=== PATIENT | female | born 1990 | race Caucasian/White ===

== ENCOUNTER → 2022-09-28 13:42 | Outpatient (CLI) | payer OTHER, SELFPAY ==
--- NOTE | 2022-09-28 13:44 | DI.US.S_ITS ---
PROCEDURE: US OB <= 14 WEEKS FETUS INDICATIONS: DATING AND VIABILITY OUTSIDE/PRIOR DATING DATA: Last menstrual period (LMP): 08/08/2022. LMP-based estimated date of delivery (ALVIN): 05/15/2023. First dating scan (date and location): 09/28/2022. Estimated date of delivery (ALVIN) from first dating scan: 05/17/2023 by [facility]. TECHNIQUE: Real-time scanning was performed of the fetus and maternal pelvic organs, with image documentation. Endovaginal scanning was also performed to better visualize the fetus and maternal ovaries. COMPARISON: None. FINDINGS: Embryo: [place]-rump length of 2.5 cm corresponding to gestational age of 7 weeks 0 days Heart rate: 137 beats per minute Tiny subchorionic hemorrhage measures up to 1.2 cm, less than 50% circumference of the gestational sac. Maternal organs: Ovaries are unremarkable. IMPRESSION: Single living intrauterine with gestational age of 7 weeks 0 days by crown-rump length, concordant with clinical dates. We strive to produce accurate, complete, and clear reports of imaging services. To assist us in improving patient care, this report was composed using standard report templates and voice recognition software. Therefore, it may contain abnormal punctuation, insertions and/or omissions. Occasional wrong-word or sound-alike substitutions may occur. Though we review the report and make efforts to correct it, we do recommend that the report be read carefully in proper context to recognize any text inaccuracies. Dictated by: Tom Vang M.D. on 09/28/2022 at 17:19 Approved by: Tom Vang M.D. on 09/28/2022 at 17:28
== END ==
PROVIDERS: Referring Provider Family Medicine; Visit Provider Family Medicine
DX: Z36.87 Encounter for antenatal screening for uncertain dates (principal); Z3A.01 Less than 8 weeks gestation of pregnancy
CPT/HCPCS: 76801

== ENCOUNTER 2022-10-23 08:57 | Emergency (ER) | payer OTHER, SELFPAY ==
[2022-10-23 09:06] VITALS: BP 129/67; PULSE 83; RESP 18; TEMP 37; O2SAT 100; BMI 30.7
--- NOTE | 2022-10-23 09:18 | DI.US.S_ITS ---
PROCEDURE: US OB <= 14 WEEKS FETUS INDICATIONS: VAGINAL BLEEDING OUTSIDE/PRIOR DATING DATA: Last menstrual period (LMP): 08/08/2022. LMP-based estimated date of delivery (ALVIN): 05/15/2023. First dating scan (date and location): 09/28/2022. Estimated date of delivery (ALVIN) from first dating scan: 05/15/2023. The calculations are made using the clinical ALVIN of 05/15/2023. TECHNIQUE: Real-time scanning was performed of the fetus and maternal pelvic organs, with image documentation. Endovaginal scanning was also performed to better visualize the fetus and maternal ovaries. COMPARISON: [facility], OB <= 14 WEEKS FETUS, 09/28/2022, 13:51. FINDINGS: Embryo: Present, crown-rump length measures 4.5 cm, corresponding to 11 weeks 2 days. Perigestational fluid collection measuring 3.8 x 0.9 x 0.6 cm, previously 1.2 x 0.8 x 0.3 cm. Heart rate: Present, 169 beats per minute Maternal organs: Limited view of the right ovary due to overlying bowel gas. Left-sided corpus luteum. IMPRESSION: 1. Live intrauterine at 11 weeks 2 days, concordant with dating by LMP. 2. Perigestational fluid collection measuring 3.8 x 0.9 x 0.6 cm, previously 1.2 x 0.8 x 0.3 cm. We strive to produce accurate, complete, and clear reports of imaging services. To assist us in improving patient care, this report was composed using standard report templates and voice recognition software. Therefore, it may contain abnormal punctuation, insertions and/or omissions. Occasional wrong-word or sound-alike substitutions may occur. Though we review the report and make efforts to correct it, we do recommend that the report be read carefully in proper context to recognize any text inaccuracies. Dictated by: Howard Angeles M.D. on 10/23/2022 at 10:38 Approved by: Howard Angeles M.D. on 10/23/2022 at 10:49
[2022-10-23 09:39] LABS: Appearance Urine UA CLEAR; Bilirubin Urine UA NEGATIVE (NEGATIVE); Color Urine UA YELLOW; Glucose Urine UA NEGATIVE (Negative); Ketones Urine UA NEGATIVE (NEGATIVE); Leukocyte Esterase Urine UA NEGATIVE (NEGATIVE); Nitrite Urine UA NEGATIVE (Negative); Occult Blood Urine UA 2+ (Negative); Protein Urine UA NEGATIVE (Negative); Urobilinogen Urine UA 0.2 E.U./dL (0.2)
[2022-10-23 09:46] LABS: RBC Urine 0-1/HPF (0-5/HPF); Squamous Epithelial Cell Urine 5-10 /HPF (0-5/HPF); WBC Urine 0-1/HPF (0-5/HPF)
[2022-10-23 09:47] LABS: Bacteria Urine Few (2-10); Culture Indicated Urine Cult Not Indicated
--- NOTE | 2022-10-23 09:49 | ED_ITS ---
HPI - General Adult General Chief complaint: Vaginal Bleeding Stated complaint: vaginal bleeding 10wks Time Seen by Provider: 10/23/22 09:17 Source: patient Mode of arrival: Ambulatory History of Present Illness HPI narrative: 31-year-old female at approximately 10 weeks EGA secondary to last menstrual period who is here for evaluation of vaginal bleeding. She states she did have some cramping a couple weeks ago but nothing now. She did have some bleeding this morning. No urinary symptoms. No loss of fluid. No bowel habits. No prior abdominal surgeries. Is having some nausea no vomiting. No fevers. Related Data Home Medications Medication Instructions Recorded Confirmed cholecalciferol (vitamin D3) 50 50 mcg PO DAILY 10/04/22 10/04/22 mcg (2,000 unit) capsule prenat.vits,nelson,abk-[id number] 1 tab PO DAILY 10/04/22 10/04/22 Allergies Allergy/AdvReac Type Severity Reaction Status Date / Time No Known Drug Allergies Allergy Unverified 10/04/22 08:02 Review of Systems Constitutional Constitutional: Reports system reviewed and no additional complaints, except as documented Cardiovascular Cardiovascular: Reports system reviewed and no additional complaints, except as documented Respiratory Respiratory: Reports system reviewed and no additional complaints, except as documented Gastrointestinal Gastrointestinal: Reports system reviewed and no additional complaints, except as documented Genitourinary Genitourinary: Reports system reviewed and no additional complaints, except as documented Integumentary/Breasts Skin/Breast: Reports system reviewed and no additional complaints, except as documented Hematologic/Lymphatic On Anticoagulants: No Patient History Medical History Mononucleosis (~2012) Surgical History (Updated 10/04/22 @ 08:05 by Brenda Navarro RN) History of repair of ACL (~2009) S/P ASA/PRK (advanced surface ablation photorefractive keratectomy) Family History (Updated 10/04/22 @ 08:09 by Brenda Navarro RN) Mother Hypothyroidism Early menopause Rheumatoid arthritis Grandfather Colon cancer Glaucoma Family/Other Breast cancer Grandmother Macular degeneration Family/Other Macular degeneration Social History marital status: number of children: 0 household members: spouse lives independently: Yes caregiver/support person: No housing: house pets and animals: Yes (1 dog; aware of toxo precautions outdoors) education level: college (batchleor's degree) occupational status: employed (active duty [employer], in January) current occupational exposures/hazards: No special mark needs: No travel history: recent ([place]; no illness) other: Going to [place] for a wedding in November seatbelt use: always helmet use: Yes water heater temp set < 120 deg: Yes working smoke detector in home: Yes fire extinguisher in home: Yes carbon monox detector in home: Yes firearms in home: Yes firearms unloaded and locked: Yes do you feel safe at home: Yes Smoking Status: Never smoker second hand exposure: No alcohol intake: former (2-5/week when not ) substance use type: does not use during the past year weight has: remained stable well-balanced diet: about half the time daily servings fruits/ve-1 caffeine: Yes (aware of 200mg limit) Type(s) of exercise: walking and weight lifting frequency: 3-4 times per week additional social history: Pt will be going to [facility] for the month of January to spend time with family. Pt's mother is a surgeon and she has family friends in the area who are OB/GYNs, believes that she can arrange a quick visit or two with one of them while she is down there and possibly do a telehealth visit w/ Dr. Martinez while she is gone. Explained that due to timing, we will probably plan to do her GTT early (~24 wk) so that it's done before she leaves, which she is agreeable to. Smoking Status: Never smoker Substance Use Type: does not use Exam Initial Vital Signs Initial Vital Signs: Vital Signs Temperature 98.6 F 10/23/22 09:06 Pulse Rate 83 10/23/22 09:06 Respiratory Rate 18 10/23/22 09:06 Blood Pressure 129/67 10/23/22 09:06 Pulse Oximetry 100 10/23/22 09:06 Oxygen Delivery Method 10/23/22 09:06 Const General: cooperative, comfortable and No ill appearing HENMT Head: normal to inspection and normocephalic Resp Effort & Inspection: normal respiratory effort Auscultation: clear to auscultation bilaterally Cardio Rate: regular rate Rhythm: regular rhythm GI Inspection: normal to inspection Palpation: soft, No firm and No tender Back/Spine/Pelvis Back: No CVA tenderness Skin General: no rashes or lesions noted Extrem General: normal to inspection, capillary refill normal and No edema Course Orders Ordered: ED Orders 10/23/22 09:05 Urinalysis and Microscopic Stat Urine Culture Stat 10/23/22 09:18 US OB <= 14 weeks fetus Stat 10/23/22 09:48 ABO RH Type Stat Basic Metabolic Panel Stat Complete Blood Count AUTO DIFF Stat HCG Quantitative /Beta subunit Stat Vital Signs Vital signs: Vital Signs - 8 hr 10/23/22 09:06 10/23/22 10:00 10/23/22 11:03 Temperature 98.6 F Pulse Rate 83 80 65 Respiratory Rate 18 18 18 Blood Pressure 129/67 102/56 L 105/59 L Pulse Oximetry 100 99 98 Oxygen Delivery Method Room Air Medical Decision Making Lab Data Lab results reviewed: Yes I reviewed the patient's lab results. 10/23/22 09:48 10/23/22 09:48 Labs: Lab Results 10/23/22 10/23/22 10/23/22 Range/Units 09:05 09:48 09:48 WBC 6.6 (4.5-11.0) X10^3/uL RBC 4.41 (4.0-5.2) X10^6/uL Hgb 13.5 (12.0-16.0) g/dL Hct 39.8 (36-46) % MCV 90.2 (80-100) fL MCH 30.7 (26-34) PG MCHC 34.0 (30-36) % RDW 13.9 (11.6-14.8) % Plt Count 210 (150-400) X10^3/uL Neut % (Auto) 76.5 H (50-75) % Lymph % (Auto) 17.8 L (25-40) % Talbot % (Auto) 4.4 (3-14) % Eos % (Auto) 0.7 L (2-4) % Baso % (Auto) 0.6 (0-2) % Neut # (Auto) 5000 (1550-4318) /uL Lymph # (Auto) 1200 (5817-5647) /uL Talbot # (Auto) 300 (0-900) /uL Eos # (Auto) 0 (0-450) /uL Baso # (Auto) 0 (0-100) /uL Sodium 136 L (137-145) mmol/L Potassium 3.7 (3.4-5.1) mmol/L Chloride 105 (98-107) mmol/L Carbon Dioxide 24 (22-32) mmol/L BUN 5 L (7-17) mg/dL Creatinine 0.52 (0.52-1.04) mg/dL Estimated GFR > 60 (>60) mL/min BUN/Creatinine Ratio 9.6 (6-22) Glucose 84 (70-100) mg/dL Calcium 8.5 (8.4-10.2) mg/dL Urine Color Yellow Urine Appearance Clear Urine pH 7.0 (4.5-8.0) Ur Specific Mina 1.010 (1.000-1.035) Urine Protein Negative (Negative) Urine Glucose (UA) Negative (Negative) g/dL Urine Ketones Negative (NEGATIVE) Urine Occult Blood 2+ H (Negative) Urine Nitrate Negative (Negative) Urine Bilirubin Negative (NEGATIVE) Urine Urobilinogen 0.2 (0.2) E.U./dL Ur Leukocyte Esterase Negative (NEGATIVE) Urine RBC 0-1/hpf (0-5/HPF) Urine WBC 0-1/hpf (0-5/HPF) Ur Squamous Epith Cells 5-10 /hpf H (0-5/HPF) Urine Bacteria Few (2-10) H (None) Ur Culture Indicated? Cult not indicated Blood Type 10/23/22 Range/Units 09:48 WBC (4.5-11.0) X10^3/uL RBC (4.0-5.2) X10^6/uL Hgb (12.0-16.0) g/dL Hct (36-46) % MCV (80-100) fL MCH (26-34) PG MCHC (30-36) % RDW (11.6-14.8) % Plt Count (150-400) X10^3/uL Neut % (Auto) (50-75) % Lymph % (Auto) (25-40) % Talbot % (Auto) (3-14) % Eos % (Auto) (2-4) % Baso % (Auto) (0-2) % Neut # (Auto) (5381-3067) /uL Lymph # (Auto) (1628-5180) /uL Talbot # (Auto) (0-900) /uL Eos # (Auto) (0-450) /uL Baso # (Auto) (0-100) /uL Sodium (137-145) mmol/L Potassium (3.4-5.1) mmol/L Chloride (98-107) mmol/L Carbon Dioxide (22-32) mmol/L BUN (7-17) mg/dL Creatinine (0.52-1.04) mg/dL Estimated GFR (>60) mL/min BUN/Creatinine Ratio (6-22) Glucose (70-100) mg/dL Calcium (8.4-10.2) mg/dL Urine Color Urine Appearance Urine pH (4.5-8.0) Ur Specific Mina (1.000-1.035) Urine Protein (Negative) Urine Glucose (UA) (Negative) g/dL Urine Ketones (NEGATIVE) Urine Occult Blood (Negative) Urine Nitrate (Negative) Urine Bilirubin (NEGATIVE) Urine Urobilinogen (0.2) E.U./dL Ur Leukocyte Esterase (NEGATIVE) Urine RBC (0-5/HPF) Urine WBC (0-5/HPF) Ur Squamous Epith Cells (0-5/HPF) Urine Bacteria (None) Ur Culture Indicated? Blood Type O Positive Point of Care Testing Test Results Positive Point of care testing: Point of Care Testing Test Results Positive Imaging Data US - OB: Radiologist's Impression: PROCEDURE:? US OB <= 14 WEEKS FETUS ? INDICATIONS:? VAGINAL BLEEDING ? OUTSIDE/PRIOR DATING DATA:? Last menstrual period (LMP):? 08/08/2022.? LMP-based estimated date of delivery (ALVIN):? 05/15/2023.? First dating scan (date and location):? 09/28/2022.? Estimated date of delivery (ALVIN) from first dating scan:? 05/15/2023. The calculations are made using the clinical ALVIN of 05/15/2023. ? TECHNIQUE:? Real-time scanning was performed of the fetus and maternal pelvic organs, with image documentation.? Endovaginal scanning was also performed to better visualize the fetus and maternal ovaries.? ? COMPARISON:[facility], , US OB <= 14 WEEKS FETUS, 09/28/2022, 13:51. ? FINDINGS:? ? Embryo:? Present, crown-rump length measures 4.5 cm, corresponding to 11 weeks 2 days.? Perigestational fluid collection measuring 3.8 x 0.9 x 0.6 cm, previously 1.2 x 0.8 x 0.3 cm. Heart rate:? Present, 169 beats per minute ? Maternal organs:? Limited view of the right ovary due to overlying bowel gas.? Left-sided corpus luteum. ? ? IMPRESSION:? 1. Live intrauterine at 11 weeks 2 days, concordant with dating by LMP. 2. Perigestational fluid collection measuring 3.8 x 0.9 x 0.6 cm, previously 1.2 x 0.8 x 0.3 cm. Discharge Plan Departure Patient Disposition: Home Clinical Impression: Threatened miscarriage Instructions: DI for Vaginal Bleeding During Activity Restrictions/Additional Instructions: I do recommend that you keep all of your scheduled medical appointments. Contact your OB provider for a follow-up. Return to the emergency department for any new or worsening symptoms. Prescriptions: No Action prenat.vits,nelson,[id number]-fnib-[id number] Tablet 1 tab PO DAILY cholecalciferol (vitamin D3) 50 mcg (2,000 unit) capsule 50 mcg PO DAILY Referrals: Miscellaneous,Doctor, [Primary Care Provider] - Stand Alone Forms: Patient Portal/API
[2022-10-23 10:00] VITALS: BP 102/56; PULSE 80; RESP 18; O2SAT 99
[2022-10-23 10:01] LABS: Add Manual Diff / Slide Review NO; Basophils Absolute Auto 0 /uL (0-100); Basophils Percent Auto 0.6 % (0-2); Eosinophils Absolute Auto 0 /uL (0-450); Eosinophils Percent Auto 0.7 % (2-4); Hematocrit 39.8 % (36-46); Hemoglobin 13.5 g/dL (12.0-16.0); Lymphocytes Absolute Auto 1200 /uL (1100-4500); Lymphocytes Percent Auto 17.8 % (25-40); Mean Corpuscular Hemoglobin 30.7 PG (26-34); Mean Corpuscular Volume 90.2 fL (80-100); Monocytes Absolute Auto 300 /uL (0-900); Monocytes Percent Auto 4.4 % (3-14); Neutrophils Absolute Auto 5000 /uL (1500-7000); Neutrophils Percent Auto 76.5 % (50-75); Platelet Count 210 X10^3/uL (150-400); Red Blood Cell Count 4.41 X10^6/uL (4.0-5.2); Red Cell Distribution Width 13.9 % (11.6-14.8); White Blood Cell Count 6.6 X10^3/uL (4.5-11.0)
[2022-10-23 10:22] LABS: BUN Creatinine Ratio 9.6 (6-22); Blood Urea Nitrogen 5 mg/dL (7-17); Calcium 8.5 mg/dL (8.4-10.2); Carbon Dioxide 24 mmol/L (22-32); Chloride 105 mmol/L (98-107); Estimated Glomerular Filt Rate > 60 mL/min (>60); Glucose 84 mg/dL (70-100); HEMOLYSIS < 15 (0-50); Potassium 3.7 mmol/L (3.4-5.1); Sodium 136 mmol/L (137-145)
[2022-10-23 11:03] VITALS: BP 105/59; PULSE 65; RESP 18; O2SAT 98
[2022-10-23 11:12] LABS: HCG Quantitative /Beta subunit 52461 mIU/mL
== END 2022-10-23 11:16 | disposition home or self-care (01) ==
PROVIDERS: Emergency Provider Emergency Medicine
DX: O20.0 Threatened abortion (principal); Z3A.10 10 weeks gestation of pregnancy
CPT/HCPCS: 36415; 76801; 76817; 76830; 80048; 81001; 81025; 84702; 85025; 86900; 86901; 87086; 99284

== ENCOUNTER → 2022-11-07 12:41 | Outpatient (CLI) | payer OTHER, SELFPAY ==
[2022-11-07 13:28] LABS: Add Manual Diff / Slide Review NO; Basophils Absolute Auto 0 /uL (0-100); Basophils Percent Auto 0.3 % (0-2); Eosinophils Absolute Auto 100 /uL (0-450); Eosinophils Percent Auto 0.9 % (2-4); Hematocrit 38.8 % (36-46); Hemoglobin 13.5 g/dL (12.0-16.0); Lymphocytes Absolute Auto 1600 /uL (1100-4500); Lymphocytes Percent Auto 22.1 % (25-40); Mean Corpuscular HGB Conc 34.8 % (30-36); Mean Corpuscular Hemoglobin 31.4 PG (26-34); Mean Corpuscular Volume 90.2 fL (80-100); Monocytes Absolute Auto 300 /uL (0-900); Monocytes Percent Auto 4.7 % (3-14); Neutrophils Absolute Auto 5300 /uL (1500-7000); Platelet Count 213 X10^3/uL (150-400); Red Cell Distribution Width 13.9 % (11.6-14.8); White Blood Cell Count 7.4 X10^3/uL (4.5-11.0)
[2022-11-07 13:54] LABS: Appearance Urine UA CLEAR; Bilirubin Urine UA NEGATIVE (NEGATIVE); Color Urine UA YELLOW; Glucose Urine UA NEGATIVE (Negative); Ketones Urine UA NEGATIVE (NEGATIVE); Leukocyte Esterase Urine UA NEGATIVE (NEGATIVE); Nitrite Urine UA NEGATIVE (Negative); Occult Blood Urine UA NEGATIVE (Negative); Protein Urine UA NEGATIVE (Negative); Specific Gravity Urine UA 1.015 (1.000-1.035); Urobilinogen Urine UA 0.2 E.U./dL (0.2)
[2022-11-07 15:41] LABS: Hepatitis B Surface Antigen NEGATIVE s/c (NEGATIVE)
[2022-11-07 16:00] LABS: HIV 1 & 2 Ab/Ag 4th Gen Combo NEGATIVE (NEGATIVE); Hep C Virus Ab w/Reflex Quant NEGATIVE s/c (NEGATIVE)
[2022-11-08 06:14] LABS: RPR Screen Non Reactive (Non Reactive)
[2022-11-08 12:47] LABS: Varicella IgG Antibody 1455 index (Immune >165)
== END ==
PROVIDERS: Referring Provider Family Medicine; Visit Provider Family Medicine
DX: Z34.01 Encounter for supervision of normal first pregnancy, first trimester (principal)
CPT/HCPCS: 36415; 80055; 81003; 86787; 86803; 86850; 86900; 86901; 87086; 87389

== ENCOUNTER → 2022-12-04 15:06 | Outpatient (CLI) | payer OTHER, SELFPAY ==
[2022-12-07 21:12] LABS: AFP, Serum 46.9 ng/mL (.); Estriol, Free 0.94 ng/mL (.); Inhibin A, Dimeric 127.84 pg/mL (.); Maternal Ethnicity Caucasian (.); Maternal Weight 202 lbs (.); Number of Fetuses No (.); OSBR Risk 1 IN 3133 (.); Results Report (.); Test Results *Screen Negative* (.); hCG, Serum 20381 mIU/mL (.)
== END ==
PROVIDERS: Referring Provider Family Medicine; Visit Provider Family Medicine
DX: Z34.02 Encounter for supervision of normal first pregnancy, second trimester (principal); Z3A.16 16 weeks gestation of pregnancy
CPT/HCPCS: 36415; 82105; 82677; 84702; 86336

== ENCOUNTER → 2022-12-29 14:13 | Outpatient (CLI) | payer OTHER, SELFPAY ==
--- NOTE | 2022-12-29 14:14 | DI.US.S_ITS ---
PROCEDURE: US OB >= 14 WEEKS FETUS INDICATIONS: ANATOMY OUTSIDE/PRIOR DATING DATA: Last menstrual period (LMP): 08/08/22. LMP-based estimated date of delivery (ALVIN): 05/15/23. First dating scan (date and location): 09/28/22. Estimated date of delivery (ALVIN) from first dating scan: 05/15/23. The calculations are made using the 1st ALVIN of 05/15/23. TECHNIQUE: Real-time scanning was performed of the fetus, with image documentation and biometric measurements. Endovaginal scanning: Not needed COMPARISON: None. FINDINGS: General: A single living intrauterine gestation is present. Presentation: Vertex. Placenta: Placental position is left fundal , without previa. Amniotic fluid index: 16.5 cm, normal range is 5-24 cm. Single deepest vertical pocket is 6.6 cm. heart rate: 133 beats per minute. Maternal cervical canal: 3.5 cm long. Normal lower limit is 2.5 cm. biometrics: Biparietal diameter: 5.4 cm, 22 weeks 4 days Head circumference: 19.4 cm, 21 weeks 4 days Abdominal circumference: 15.8 cm, 20 weeks 6 days Femur length: 3.4 cm, 20 weeks 3 days Clinically estimated gestational age: 20 weeks 3 days Composite gestational age from present scan: 21 weeks 3 days Estimated weight and percentile: 384 g, 71st percentile Anatomic survey: Neuro: Ventricles are non-dilated at less than 10 mm. Cisterna magna is normal at 3-11 mm. Cerebellum is normal in size and morphology. Nuchal skin fold: Normal at less than 6 mm between 14-21 weeks gestational age. Face: Nose and lips, facial profile are normal. Spine: No evidence for spina bifida. Heart: 4-chambered heart is present, with normal ventricular outflow tracts. Diaphragm: Diaphragm is intact. Stomach: Left-sided stomach is present. Kidneys: No hydronephrosis. Normal is less than 5 mm in 2nd trimester, less than 7 mm in 3rd trimester. Cord: 3-vessel cord has orthotopic insertion. Bladder: Normal in size. Extremities: All 4 extremities identified. IMPRESSION: Single living intrauterine gestation, no anomaly seen, appropriate interval growth, delivery date is projected to be centered on 05/15/23 +/-5 days. We strive to produce accurate, complete, and clear reports of imaging services. To assist us in improving patient care, this report was composed using standard report templates and voice recognition software. Therefore, it may contain abnormal punctuation, insertions and/or omissions. Occasional wrong-word or sound-alike substitutions may occur. Though we review the report and make efforts to correct it, we do recommend that the report be read carefully in proper context to recognize any text inaccuracies. Dictated by: Po Cordova M.D. on 12/29/2022 at 16:09 Approved by: Po Cordova M.D. on 12/29/2022 at 16:21
== END ==
PROVIDERS: Referring Provider Family Medicine; Visit Provider Family Medicine
DX: Z34.02 Encounter for supervision of normal first pregnancy, second trimester (principal); Z3A.21 21 weeks gestation of pregnancy
CPT/HCPCS: 76811

== ENCOUNTER → 2023-03-08 15:57 | Outpatient (CLI) | payer OTHER, SELFPAY ==
[2023-03-08 17:17] LABS: Add Manual Diff / Slide Review NO; Basophils Absolute Auto 100 /uL (0-100); Basophils Percent Auto 0.5 % (0-2); Eosinophils Absolute Auto 100 /uL (0-450); Eosinophils Percent Auto 0.8 % (2-4); Hematocrit 37.1 % (36-46); Hemoglobin 12.9 g/dL (12.0-16.0); Lymphocytes Absolute Auto 1300 /uL (1100-4500); Lymphocytes Percent Auto 11.3 % (25-40); Mean Corpuscular HGB Conc 34.9 % (30-36); Mean Corpuscular Hemoglobin 31.1 PG (26-34); Mean Corpuscular Volume 89.2 fL (80-100); Monocytes Absolute Auto 500 /uL (0-900); Monocytes Percent Auto 4.1 % (3-14); Neutrophils Absolute Auto 9800 /uL (1500-7000); Neutrophils Percent Auto 83.3 % (50-75); Platelet Count 226 X10^3/uL (150-400); Red Blood Cell Count 4.15 X10^6/uL (4.0-5.2); Red Cell Distribution Width 13.7 % (11.6-14.8); White Blood Cell Count 11.7 X10^3/uL (4.5-11.0)
[2023-03-08 17:26] LABS: GTT (PREG) 1 Hour PP 50gm Dose 138 mg/dL (76-139)
== END ==
PROVIDERS: Referring Provider Family Medicine; Visit Provider Family Medicine
DX: Z34.92 Encounter for supervision of normal pregnancy, unspecified, second trimester (principal)
CPT/HCPCS: 36415; 82950; 85025

== ENCOUNTER → 2023-04-17 10:49 | Outpatient (CLI) | payer OTHER, SELFPAY ==
[2023-04-18 13:03] LABS: Strep Grp B PCR NEG for Grp B Strep
== END ==
PROVIDERS: Visit Provider Family Medicine
DX: Z34.01 Encounter for supervision of normal first pregnancy, first trimester (principal)
CPT/HCPCS: 87653

== ENCOUNTER 2023-05-07 15:46 | Inpatient (IN) | payer OTHER, SELFPAY ==
[2023-05-07] MEDS: LACTATED RINGERS 1,000 ML 100 ML IV ×2 (16:00→20:26)
--- NOTE | 2023-05-07 16:34 | PM.OBHP.IH.1 ---
OB HPI Date/Time Date of admission: 05/07/23 Date Patient Seen: 05/07/23 Time Patient Seen: 16:34 History of Present Condition Chief complaint: LABOR ALVIN Calculator Estimated Delivery Date Method Current WG Current Estimate 05/15/23 Manual 38w 6d Final ALVIN - IVIS Other Estimates 05/15/23 LMP (Certain) 38w 6d 05/17/23 Ultrasound #1 38w 4d Estimated Gestational Age (weeks): 38w6d : 1 Para: 0 Narrative: 32yo at 38w6d here with regular painful contractions and LOF. Pt reports mild contractions starting this morning, increasing in intensity and frequency significantly around 1pm. She had a LOF around 1:30pm. She denies any vaginal bleeding. She is feeling her baby move regularly. Her has been uncomplicated. care: good care, initiated at week # (13) and pounds weight gain (34) Dating criteria OB: LMP confirmed by 1st trimester US Ultrasounds: normal 1st trimester US and normal mid trimester US Obstetrical complications: none Medical complications OB: none Preadmission Labs Last OB Lab Results: Blood Type O Positive 11/07/22 12:45 Antibody Screen Negative 11/07/22 12:45 Hematocrit 37.1 % (36-46) 03/08/23 16:06 Hemoglobin 12.9 g/dL (12.0-16.0) 03/08/23 16:06 Hepatitis B Surface Antigen Negative s/c (NEGATIVE) 11/07/22 12:45 Hepatitis C Antibody Negative s/c (NEGATIVE) 11/07/22 12:45 Rubella Antibody 299.0 IU/mL (>15) 11/07/22 12:45 Varicella-Zoster IgG Antibody 1455 index (Immune >165) 11/07/22 12:45 Glucose 1 Hour 138 mg/dL (76-139) 03/08/23 16:06 Group B Streptococcus (PCR) Neg for grp b strep 04/17/23 10:49 -: Urine: negative Genetic Screens: Quad screen: Normal External Labs -: Urine: negative Evaluation Evaluation Baseline heart rate: 130 Variability: Moderate (11-25) monitor accelerations: Present Monitor Decelerations: Absent Contraction Frequency (minutes): 3 Uterine Contraction Intensity: Strong/Firm Status: Category l Dilation (cm): 3 Effacement (%): 80 station: -1 Position of cervix: posterior Consistency: soft PFSH Medical History Mononucleosis (~2012) Surgical History (Updated 10/04/22 @ 08:05 by Brenda Navarro RN) History of repair of ACL (~2009) S/P ASA/PRK (advanced surface ablation photorefractive keratectomy) Family History (Updated 10/04/22 @ 08:09 by Brenda Navarro RN) Mother Hypothyroidism Early menopause Rheumatoid arthritis Grandfather Colon cancer Glaucoma Family/Other Breast cancer Grandmother Macular degeneration Family/Other Macular degeneration Social History marital status: number of children: 0 household members: spouse lives independently: Yes caregiver/support person: No housing: house pets and animals: Yes (1 dog; aware of toxo precautions outdoors) education level: college (batchleor's degree) occupational status: employed (active duty [employer], in January) current occupational exposures/hazards: No special mark needs: No travel history: recent ([place]; no illness) other: Going to [place] for a wedding in November seatbelt use: always helmet use: Yes water heater temp set < 120 deg: Yes working smoke detector in home: Yes fire extinguisher in home: Yes carbon monox detector in home: Yes firearms in home: Yes firearms unloaded and locked: Yes do you feel safe at home: Yes Smoking Status: Never smoker second hand exposure: No alcohol intake: former (2-5/week when not ) substance use type: does not use during the past year weight has: remained stable well-balanced diet: about half the time daily servings fruits/ve-1 caffeine: Yes (aware of 200mg limit) Type(s) of exercise: walking and weight lifting frequency: 3-4 times per week additional social history: Pt will be going to [facility] for the month of January to spend time with family. Pt's mother is a surgeon and she has family friends in the area who are OB/GYNs, believes that she can arrange a quick visit or two with one of them while she is down there and possibly do a telehealth visit w/ Dr. Martinez while she is gone. Explained that due to timing, we will probably plan to do her GTT early (~24 wk) so that it's done before she leaves, which she is agreeable to. Meds Home Medications and Allergies Home Medications Medication Instructions Recorded Confirmed Type cholecalciferol (vitamin D3) 50 50 mcg PO DAILY 10/04/22 05/04/23 History mcg (2,000 unit) capsule prenat.vits,nelson,nnx-mneb-ebjtp 1 tab PO DAILY 10/04/22 05/04/23 History Double Electric Breast Pump and #1 ea 12/04/22 05/04/23 Rx Supplies Allergies Allergy/AdvReac Type Severity Reaction Status Date / Time No Known Drug Allergies Allergy Unverified 05/04/23 13:52 OB Exam Narrative Exam Narrative: Gen: NAD, sitting comfortably in bed, appears well CV: RRR, no murmurs Resp: clear to auscultation bilaterally Abd: soft, nontender, gravid Ext: no edema Assessment and Plan Assessment and Plan Assessment and Plan narrative: 32yo at 38w6d here in active labor with SROM at home at 1:30pm with clear fluid. GBS negative, Rh positive. - Expectant management, anticipate - FHT reassuring - GBS negative, no antibiotics indicated - Epidural for pain control now
[2023-05-07 18:18] LABS: Add Manual Diff / Slide Review NO; Basophils Absolute Auto 100 /uL (0-100); Basophils Percent Auto 0.5 % (0-2); Eosinophils Absolute Auto 100 /uL (0-450); Eosinophils Percent Auto 0.4 % (2-4); Hematocrit 41.2 % (36-46); Lymphocytes Absolute Auto 1700 /uL (1100-4500); Lymphocytes Percent Auto 12.5 % (25-40); Mean Corpuscular HGB Conc 34.1 % (30-36); Mean Corpuscular Hemoglobin 30.3 PG (26-34); Mean Corpuscular Volume 88.9 fL (80-100); Monocytes Absolute Auto 600 /uL (0-900); Monocytes Percent Auto 4.4 % (3-14); Neutrophils Absolute Auto 11300 /uL (1500-7000); Neutrophils Percent Auto 82.2 % (50-75); Platelet Count 227 X10^3/uL (150-400); Red Blood Cell Count 4.63 X10^6/uL (4.0-5.2); Red Cell Distribution Width 13.2 % (11.6-14.8); White Blood Cell Count 13.8 X10^3/uL (4.5-11.0)
[2023-05-07] MEDS: FENT 2MCG/ML BUPIV 0.1% EPI 200 MCG/100 ML PLAST..BAG 12 MCG EPIDURAL ×2 (18:30→22:58)
[2023-05-07 19:14] VITALS: BP 120/79
--- NOTE | 2023-05-07 19:35 | PM.AN.REGBLK ---
Regional Block Pre-procedure Procedure: Continuous Lumbar Epidural for L&D Attending OB provider: Cydney Martinez PMH/ROS narrative: Minimal medical history, negative for gestational diabetes or hypertension, scoliosis. Appears in obvious discomfort with contractions which are ferquent and regular. Requesting continuous labor epidural at this time. Platelets 227k. No problems with anesthesia in past - ACL repair, eye surgery. Hx: No personal or family history of anesthesia problems. ASA Class: II Labs: Hct 41.2 % (36-46) 05/07/23 16:20 Plt Count 227 X10^3/uL (150-400) 05/07/23 16:20 Medications: Current Medications Generic Name Dose Route Start Last Admin Trade Name Freq PRN Reason Stop Dose Admin Calcium Carbonate 1,000 mg 05/07/23 18:01 Calcium Carbonate 500 Mg Tab PO Q4HR PRN Dyspepsia Carboprost Tromethamine 250 mcg 05/07/23 18:01 Carboprost 250 Mcg/Ml Ampul IM Q90M PRN Bleeding Diphenhydramine HCl 25 mg 05/07/23 18:03 Diphenhydramine 50 Mg/Ml Vial IV Q10M PRN Pruritis Ephedrine Sulfate 10 mg 05/07/23 18:03 Ephedrine 50 Mg/Ml Vial IV Q5M PRN Blood pressure decrease more than 20% of baseline. Fentanyl 50 mcg 05/07/23 18:01 Fentanyl 100 Mcg/2 Ml Inj IV Q1H PRN Pain, Moderate (4-6) Oxytocin/Lactated Ringer's 30 unit in 500 mls @ 200 mls/hr 05/07/23 18:01 Oxytocin Premix IV CONT PRN Bleeding Protocol Tranexamic Acid 1,000 mg/ 100 mls @ 200 mls/hr 05/07/23 18:01 Sodium Chloride IV NOW PRN Bleeding Lactated Ringer's 1,000 mls @ 100 mls/hr 05/07/23 18:15 Lactated Ringers IV CONT JR FENT 2MCG/ML BUPIV 0.1% EPI 200 mcg in 100 mls @ 12 mls/hr 05/07/23 18:15 Fentanyl/Bupiv/Ns 2mcg/Ml - 0.1% EPIDURAL CONT JR Lidocaine HCl 20 ml 05/07/23 18:01 Lidocaine 1% 20 Ml INJ INTRA-OP PRN Post Delivery Methylergonovine Maleate 0.2 mg 05/07/23 18:01 Methylergonovine 0.2 Mg Tablet PO Q6HR PRN Heavy Bleeding Methylergonovine Maleate 0.2 mg 05/07/23 18:01 Methylergonovine 0.2 Mg/Ml Vial IM NOW PRN Bleeding Misoprostol 800 mcg 05/07/23 18:01 Misoprostol 200 Mcg Tablet DC NOW PRN Bleeding Misoprostol 400 mcg 05/07/23 18:01 Misoprostol 200 Mcg Tablet SL NOW PRN Bleeding Nalbuphine HCl 2.5 mg 05/07/23 18:03 Nalbuphine 20 Mg/Ml Ampul IV Q10M PRN Pruritis Naloxone HCl 0.2 mg 05/07/23 18:01 Naloxone 0.4 Mg/Ml Vial IV Q2MIN PRN Opiate Reversal Ondansetron HCl 4 mg 05/07/23 18:01 Ondansetron 4 Mg/2 Ml Inj IV Q4HR PRN Nausea And Vomiting Oxytocin 10 unit 05/07/23 18:01 Oxytocin 10 Unit/Ml Vial IM NOW PRN Bleeding Allergies: Allergies Allergy/AdvReac Type Severity Reaction Status Date / Time No Known Drug Allergies Allergy Unverified 05/04/23 13:52 Procedure Insertion date: 05/07/23 Insertion time: 18:19 Prep/Local: 1% lidocaine (Chlorprep skin prep with large sterile drape, sterile gloves and mask. Sterile technique throughout. 3mL 1% lidocaine for skin local.) Interspace: L3-4 Patient position: sitting Needle: 18 gauge Hustead Loss of resistance with: saline (with air bubble) LUIS at (cm): 7 Catheter placed at SKIN (cm): 12 Catheter in SPACE (cm): 5 Insertion: No CSF, No Blood, No Paresthesia with insertion, No Paresthesia with injection and No Test dose reaction Initial Medications TEST DOSE time: 18:22 TEST DOSE: 1.5% lidocaine with epinephrine 1:200k (mL): 3 BOLUS DOSE time: 18:27 BOLUS DOSE (mL): 7 BOLUS DOSE med: other (0.1% bupivacaine with 2mcg/mL fentanyl (bag solutation)) Infusion INFUSION: 0.125% bupivacaine (0.1% bupivacaine with 2mcg/mL fentanyl (bag solutation)) and with fentanyl 2 mcg/mL Initial rate (mL/hr): 12 Subsequent interventions: Baby born shortly before midnight, approximately 2355. Epidural catheter removed with tip intact 0255 in PACU after emergent D&C completed. Post-procedure Anesthesia time START: 18:10 Anesthesia time END: 23:55 Post-procedure Anesthesia Assessment: Yes CV function: HR/BP stable, Yes Resp function: RR/sat/airway adequate, Yes Post-op hydration adequate, Yes Pain control adequate, Yes Nausea & vomiting absent, Yes Temperature > 36 C, Yes Mental status appropriate and Yes Anesthesia complications
[2023-05-08] VITALS (11 sets, daily range): BP systolic 104–146; BP diastolic 49–95; PULSE 71–110; RESP 12–24; TEMP 36.3–37.4; O2SAT 96–100
--- NOTE | 2023-05-08 | PATH_ITS ---
[facility] Accession Number: [id number] No. of containers..01 Tissue . 01 Material submitted: . endometrium - ENDOMETRIAL CURETTINGS . 01 Diagnosis: Endometrium, Curettings: Predominantly blood, few fragments of benign decidualized endometrium and degenerated tissue with rare viable mature chorionic villi present. Negative for atypia and malignancy. MRV 05/16/2023 1545 Local . 01 Electronically signed: . Marquita Bui MD, Pathologist NPI- [id number] . 01 Gross description: . The specimen is received in formalin labeled with the patient's name, , and endometrial curettings consists of multiple ceja soft tissue fragments admixed with hemorrhagic material aggregating to 6.0 x 4.5 x 2.5 cm. The specimen is filtered and submitted entirely in cassettes A1-A12. ([id number]) /MRV 05/11/2023 1712 Local . 01 Pathologist provided ICD-10: O67.9 . 01 CPT . 503439 Specimen Comment: A courtesy copy of this report has been sent to [phone] Performed at: 01 [facility] [address] [place] [address], [place], [place] [id number] MD Portillo Rice MD Phone: [phone]
--- NOTE | 2023-05-08 | DI.US.S_ITS ---
PROCEDURE: US PELVIC LIMITED INDICATIONS: ASSIST IN OR TECHNIQUE: Real-time transabdominal scanning was performed of the pelvic organs, with image documentation. COMPARISON: None. Findings and impression: Images were obtained for operative assistance for D&C. Post suction images were obtained with postsurgical changes. Please see operative note for full details. Dictated by: Anjum Adams M.D. on 05/08/2023 at 9:43 Approved by: Anjum Adams M.D. on 05/08/2023 at 9:45
[2023-05-08] MEDS: fentaNYL 100 MCG/2 ML INJ 50 MCG IV (00:05)
[2023-05-08] MEDS: OXYTOCIN PREMIX 30 UNIT/500 ML PLAST..BAG 999 UNIT IV ×2 (00:08→00:40)
[2023-05-08] MEDS: METHYLERGONOVINE 0.2 MG/ML VIAL IM (00:12)
[2023-05-08] MEDS: TRANEXAMIC ACID 1,000 MG in SODIUM CHLORIDE 0.9% 100 ML 200 MG IV ×2 (00:15→07:15)
[2023-05-08] MEDS: miSOPROStoL 200 MCG TABLET 1000 MCG PR (00:20)
[2023-05-08] MEDS: CEFAZOLIN 2 GM/100 ML PREMIX 100 ML IV ×2 (00:41→08:14)
--- NOTE | 2023-05-08 00:58 | P.PCNOB_ITS ---
Labor & Delivery Delivery date: 05/07/23 Induction method: none Delivery monitor: external FHT and external uterine Route of delivery: Episiotomy description: None L&D Laceration Description: Perineal - 1st Degree Quantitative Blood Loss: 2,250 Complications: Umbilical cord avulsion with retained placenta hemorrhage Narrative: PROCEDURE: at 38w6d presented in active labor with SROM and was admitted to Labor and Delivery. ROM occured at 13:30 with clear fluid, prior to presentation. The patient progressed through the 1st stage over 6.5 hours. Pain was controlled with an epidural. After she progressed to complete, the pt completed her 2nd stage over 1.5 hours and delivered a viable female with APGARs 8/8 at 23:51 via , in direct OP position. The cord was cut and clamped after it stopped pulsating. With gentle cord traction, the umbilical cord promptly avulsed from the placenta. After the pt was given IV Fentanyl, manual extraction of the placenta was completed. The amniotic membrane was very adherent to the uterus and difficult to remove. The pt was noted to have si gnificant ongoing bleeding. She was given TXA, Methergine, and Cytotec in addition to the usual pitocin. Her uterus was manually swept multiple times, and while it still felt rough no placental fragments could be removed. The perineum and vagina were inspected with one small, hemostatic, 1st degree laceration. An additional bag of 30 units of pitocin was administered. Due to ongoing continued heavy bleeding, the decision was made to proceed with D&C due to concern for retained placenta. The risks vs benefits of the procedure were discussed in detail with the patient and her , with risks including but not limited to bleeding/hemorrhage, infection, uterine perforation. The pt agreed to the procedure and consents were signed and placed in her chart. She will receive 2g of Ancef prior to the D&C. PREPROCEDURE DIAGNOSIS: Intrauterine at 38w6d GBS negative RH positive POSTPROCEDURE DIAGNOSIS: Intrauterine at 38w6d, delivered Same as preprocedure Umbilical cord avulsion Retained placenta hemorrhage [place] Baby 1: Infant gender: Female Presentation: vertex Position: Left Occiput Posterior Placenta delivery description: Manual Removal, Uterine Exploration and Curettage Cord Vessel Description: 3 Vessels score (1 min): 8 score (5 min): 8 weight: 6 lb 14.09 oz Plan for aftercare: Other (To the OR for D&C)
--- NOTE | 2023-05-08 00:58 | PM.PREOP ---
Pre-operative Note Interval Note History & Physical reviewed/Exam performed by Physician: Yes Changes to H&P: No
--- NOTE | 2023-05-08 01:04 | PATH_ITS ---
[facility] Accession Number: [id number] No. of containers..01 Tissue . 01 Material submitted: . placenta - PLACENTA . 01 Diagnosis: Placenta, Delivery: Mature alan placenta (502 grams) with accessory lobe and scant intervillous fibrin deposition. - Negative for infarction, thrombosis, and villitis. Marginally attached membranes with focal mild acute chorioamnionitis. Trivascular umbilical cord with recent hemorrhage of Pam's jelly. - Negative for thrombosis, true knots, and funisitis. MRV 05/14/2023 1645 Local . 01 Electronically signed: . Debra Pacheco MD, Pathologist NPI- [id number] . 01 Gross description: . The specimen is received in formalin labeled with the patient's name, , and placenta consists of a disrupted, discoid alan placenta with a trimmed weight of 502 grams and measuring 15.7 x 14.9 x 2.5 cm. A presumed accessory lobe is identified connected to the main placenta by a translucent fragment of membrane. This accessory lobe measures 8.2 x 5.5 x 2.5 cm. . The membranes are ceja and translucent with no areas of discoloration or thickening identified. They insert and are ruptured at the margin. . The cord is received detached from the placenta and with a moderate amount of presumed amniotic membrane attached to the cord. The cord measures 62.5 cm in length and ranges from 0.9 to 1.4 cm in diameter. A defect on the surface possibly consistent with cord insertion is located centrally. Sectioning reveals unremarkable trivascular architecture with areas of possible hemorrhage occupying approximately 20% of the cord. . The surface is pink-esparza with normal arborizing vasculature and no discoloration or lesions identified. . The maternal surface is ragged with multiple fragments of presumed placenta. Due to the disruption, completeness cannot be determined. No adherent hemorrhage, discoloration, or lesions are identified. Sectioning reveals a pink-red, spongy cut surface with no discoloration or lesions identified. . Lead Engineer sections are submitted as follows: A1: Membrane roll and placental end of cord with presumed hemorrhage. A2: Membrane roll and end of cord. A3-A4: Accessory lobe. A5-A7: Approximately central full thickness unremarkable sections. ([id number]) /MRV 05/10/2023 [facility]4 Local . 01 Pathologist provided ICD-10: O43.90 . 01 CPT . 058626 Specimen Comment: A courtesy copy of this report has been sent to [phone] Performed at: 01 [facility] [address] [place] [address], [place], [place] [id number] MD Portillo Rice MD Phone: [phone]
--- NOTE | 2023-05-08 01:09 | SUR.OPER ---
Lithotomy on padded OR bed, head on pillow, arms secured on padded arm boards at <90 degrees abduction. Legs secured in padded yellow fins stirrups.
--- NOTE | 2023-05-08 02:18 | P.OP_ITS ---
Operative Date/Time/Diagnoses Date of procedure: 05/08/23 Time of procedure: 02:18 Pre-op diagnosis: hemorrhage Retained placenta Post-op diagnosis: same Procedure & Clinicians Procedure: Procedures Operation Date: 05/08/23 01:30 Actual Procedure Side Surgeon p Dilation and Curettage Not Applicable Allyson Cook MD Surgeon: Allyson Cook Sales And Marketing Assistant: Cydney Martinez Anesthesia Type: General Operative Notes Findings: Small pieces of retained placenta Large amount of clot in the uterus Closure Type: not applicable Specimen(s): other (Pieces of placenta) Applied: catheter (To continuous drainage) and other (Bakri balloon to grenade ) Estimated blood loss (mL): 100 Blood products transfused: none Procedure in detail: The patient was taken to the operating room where she was placed in the dorsal supine position. After adequate general endotracheal anesthesia was achieved, she was placed in the dorsal lithotomy position, and prepped and draped in the usual sterile fashion. A time-out was performed. A bivalve speculum was placed into the vagina and the anterior lip of the cervix was grasped with a ring forcep. Using the curved ring forceps large amount of clot and a few pieces of retained placenta were removed from the uterus. There were also some membranes attached. The #14 curved curette passed easily into the endometrial cavity and several passes with suction revealed blood clot and then blood only. The # 12 curved plastic curette then passed easily into the endometrial cavity and several passes with suction revealed blood only. The Bakri balloon was placed into the uterus at the fundus using a curved ring forceps. The balloon was inflated with 360 cc of sterile saline. The balloon was placed to drainage with a grenade. The tubing was flushed of small amount of clot prior to placing the grenade. The ring forcep was removed from the anterior lip of the cervix. The bivalve speculum was removed from the vagina. Sponge, lap, and instrument counts were correct x2. The patient tolerated the procedure well, and was taken to PACU in stable condition. Complications: none Post-operative Condition: stable Disposition: PACU Plan for aftercare: To the center after recovery
[2023-05-08] MEDS: ACETAMINOPHEN 325 MG TABLET 650 MG PO ×4 (05:16→23:55)
[2023-05-08] MEDS: OXYCODONE IR 5 MG TABLET PO ×4 (06:09→23:55)
[2023-05-08] MEDS: METHYLERGONOVINE 0.2 MG TABLET PO ×3 (06:10→19:09)
[2023-05-08] MEDS: CARBOPROST 250 MCG/ML AMPUL IM (06:39)
[2023-05-08] MEDS: ONDANSETRON 4 MG/2 ML INJ IV (06:56)
[2023-05-08 07:18] LABS: Add Manual Diff / Slide Review NO; Basophils Absolute Auto 100 /uL (0-100); Basophils Percent Auto 0.3 % (0-2); Eosinophils Absolute Auto 0 /uL (0-450); Eosinophils Percent Auto 0.1 % (2-4); Hematocrit 29.7 % (36-46); Hemoglobin 10.3 g/dL (12.0-16.0); Lymphocytes Absolute Auto 1800 /uL (1100-4500); Lymphocytes Percent Auto 7.3 % (25-40); Mean Corpuscular HGB Conc 34.5 % (30-36); Mean Corpuscular Hemoglobin 30.4 PG (26-34); Mean Corpuscular Volume 88.1 fL (80-100); Monocytes Absolute Auto 700 /uL (0-900); Monocytes Percent Auto 2.6 % (3-14); Neutrophils Absolute Auto 22200 /uL (1500-7000); Neutrophils Percent Auto 89.7 % (50-75); Platelet Count 250 X10^3/uL (150-400); Red Blood Cell Count 3.37 X10^6/uL (4.0-5.2); Red Cell Distribution Width 13.5 % (11.6-14.8); White Blood Cell Count 24.7 X10^3/uL (4.5-11.0)
--- NOTE | 2023-05-08 07:24 | SUR.OPER ---
Lithotomy on padded OR bed, head on pillow, arms secured on padded arm boards at <90 degrees abduction. Legs secured in padded yellow fins stirrups.
[2023-05-08 07:25] LABS: Prothrombin Time 11.1 SECONDS (10.1-12.7)
[2023-05-08 07:26] LABS: Fibrinogen 453 mg/dL (211-428)
[2023-05-08 07:27] LABS: D Dimer 1412 ng/ml (<500)
[2023-05-08 07:28] LABS: PTT Partial Thromboplastin Tim 25 SECONDS (26-36)
[2023-05-08] MEDS: LACTATED RINGERS 1,000 ML 100 ML IV ×2 (08:21→10:24)
[2023-05-08 08:45] LABS: Add Manual Diff / Slide Review NO; Basophils Absolute Auto 100 /uL (0-100); Basophils Percent Auto 0.4 % (0-2); Eosinophils Absolute Auto 0 /uL (0-450); Hematocrit 28.8 % (36-46); Hemoglobin 9.9 g/dL (12.0-16.0); Lymphocytes Absolute Auto 2000 /uL (1100-4500); Lymphocytes Percent Auto 8.3 % (25-40); Mean Corpuscular HGB Conc 34.5 % (30-36); Mean Corpuscular Hemoglobin 30.8 PG (26-34); Mean Corpuscular Volume 89.5 fL (80-100); Monocytes Absolute Auto 800 /uL (0-900); Monocytes Percent Auto 3.5 % (3-14); Neutrophils Absolute Auto 21100 /uL (1500-7000); Neutrophils Percent Auto 87.8 % (50-75); Platelet Count 228 X10^3/uL (150-400); Red Blood Cell Count 3.22 X10^6/uL (4.0-5.2); Red Cell Distribution Width 14.5 % (11.6-14.8)
[2023-05-08 08:50] LABS: Prothrombin Time 11.9 SECONDS (10.1-12.7)
--- NOTE | 2023-05-08 08:52 | SUR.OPER ---
Overrode FFP unit number and expiration date in TAR. Two nurse verification performed with Sherrell Caruso RN.
--- NOTE | 2023-05-08 08:53 | SUR.OPER ---
Blood consent not signed due to emergency surgery. See MD note.
[2023-05-08] MEDS: BUPIVACAINE 0.5% (PF) 30 ML VIAL INJ (08:58)
--- NOTE | 2023-05-08 09:01 | SUR.OPER ---
Addendum entered by Ashlyn Hernández R.N. 05/08/23 09:10: 50cc emptied from Bakri balloon. 50cc in balloon at this time. Original Note: Bakri balloon placed, inflated with 100cc fluid.
--- NOTE | 2023-05-08 09:02 | SUR.OPER ---
Patient came to the OR with a davis catheter in place, 375cc emptied at 0902.
--- NOTE | 2023-05-08 09:31 | PM.GYNOP.1 ---
Operative Date/Time/Diagnoses Date of procedure: 05/08/23 Time of procedure: 09:31 Procedure & Clinicians Procedure: Procedures Operation Date: 05/08/23 01:30 Actual Procedure Side Surgeon p Dilation and Curettage Not Applicable Allyson Cook MD Operation Date: 05/08/23 07:30 Actual Procedure Side Surgeon p Suction Dilation and Curettage Allyson Cook MD s hysterotomy with placement of Bakri balloon Allyson Cook MD Indications: Continued hemorrhage despite Bakri balloon Bleeding around the Bakri balloon Surgeon: Allyson Cook Information Security Consultant: Cydney Martinez Anesthesia Type: General Operative Notes Findings: Large amount of clot in the uterus. Bakri balloon out Very tight cervical ring Closure Type: primary Applied: catheter (Alexandra to continuous drainage) and other (Bakri balloon to grenade) Estimated blood loss (mL): 100 Blood products transfused: none (2 units of packed red blood cell) Procedure in detail: The patient was taken to the operating room where she was placed in the dorsal supine position. After adequate general endotracheal anesthesia was achieved, she was placed in the dorsal lithotomy position, and prepped and draped in the usual sterile fashion. A time-out was performed. A bivalve speculum was placed into the vagina. The # 12 suction curette passed easily into the endometrial cavity. Several passes with suction revealed a large amount of clot. An attempt was made to replace a Bakri balloon in the uterus, but due to the angle of the uterus and tightness of the cervix, the Bakri balloon could not be placed to the fundus of the uterus. After several attempts, a decision was made to proceed with a mini-laparotomy and a hysterotomy to place the Bakri balloon from above. The patient's abdomen was prepped and draped in the usual sterile fashion. A 5 cm incision was made above the pubic symphysis and carried through to the underlying layer of fascia. The fascia was nicked in the midline and the incision extended bilaterally with the Angel scissors. The superior aspect of the fascial incision was grasped with the Sylvester clamps, elevated, and the underlying rectus muscles dissected off sharply and bluntly. Attention was then turned to the inferior aspect of this incision which in a similar fashion was grasped with the Sylvester, and the underlying rectus muscles dissected off sharply and bluntly. The rectus muscles were in the midline. The peritoneum was identified, and entered sharply with the Metzenbaum scissors. This incision was extended superiorly and inferiorly. An Fady was placed into the incision. The vesicouterine peritoneum was grasped with a pickup and entered sharply with the Metzenbaum scissors. This incision was extended bilaterally, and the bladder flap created digitally. A small 3 cm incision was made in the lower uterine segment and carried through to the endometrial cavity. Once in the endometrial cavity suction was used to clear out any clot or debris. A ring forceps with a moist 4 x 4 was also used to sweep the fundus of the uterus. The Bakri balloon was placed to the fundus and the tail of the Bakri passed down through the cervix into the vagina. The Bakri balloon was filled with 120 cc of saline. It was placed to a grenade. Initially there was 25 cc of blood out in the grenade the uterus was closed in 2 layers with 1. Chromic in a running interlocking fashion. The second layer was used for an imbricating layer. Hemostasis was achieved. The bladder flap was closed with 2-0 Vicryl in a running fashion. The Fady was removed from the incision. The parietal peritoneum was closed with 2-0 Vicryl in a running fashion. The fascia was reapproximated using 0 Vicryl in a running fashion. The subcutaneous layer was copiously irrigated with warm normal saline. Three simple interrupted sutures with 3-0 Vicryl were placed to reapproximate the subcutaneous layer. The skin was closed with 4-0 Monocryl in a subcuticular fashion. Steri-Strips were placed. A small Aquacel dressing was placed. Sponge, lap, and instrument counts were correct x2. The patient tolerated the procedure well, and was taken to PACU in stable condition. The urine in the Alexandra catheter was clear. Complications: none Post-operative Condition: stable Disposition: PACU Plan for aftercare: To the center after recovery
[2023-05-08] MEDS: HYDROCODONE/ACET 5/325 TABLET 1 TAB PO (09:40)
[2023-05-08 10:46] LABS: Add Manual Diff / Slide Review NO; Basophils Absolute Auto 100 /uL (0-100); Basophils Percent Auto 0.4 % (0-2); Eosinophils Absolute Auto 0 /uL (0-450); Hematocrit 26.5 % (36-46); Hemoglobin 9.1 g/dL (12.0-16.0); Lymphocytes Absolute Auto 1300 /uL (1100-4500); Lymphocytes Percent Auto 7.3 % (25-40); Mean Corpuscular HGB Conc 34.3 % (30-36); Mean Corpuscular Hemoglobin 30.5 PG (26-34); Mean Corpuscular Volume 88.9 fL (80-100); Monocytes Absolute Auto 900 /uL (0-900); Neutrophils Absolute Auto 15100 /uL (1500-7000); Neutrophils Percent Auto 87.3 % (50-75); Platelet Count 169 X10^3/uL (150-400); Red Blood Cell Count 2.99 X10^6/uL (4.0-5.2); Red Cell Distribution Width 14.4 % (11.6-14.8); White Blood Cell Count 17.3 X10^3/uL (4.5-11.0)
[2023-05-08 11:04] LABS: Prothrombin Time 11.9 SECONDS (10.1-12.7)
[2023-05-08] MEDS: AMPICILLIN 2,000 MG in SODIUM CHLORIDE 0.9% 100 ML 200 MG IV ×2 (11:04→18:03)
[2023-05-08 11:06] LABS: D Dimer 1656 ng/ml (<500); PTT Partial Thromboplastin Tim 26 SECONDS (26-36)
[2023-05-08 11:08] LABS: Fibrinogen 411 mg/dL (211-428)
[2023-05-08] MEDS: GENTAMICIN 250 MG in SODIUM CHLORIDE 0.9% 100 ML 318.75 MG IV (12:13)
--- NOTE | 2023-05-08 13:09 | PM.EVENT ---
Event Note Date Patient Seen: 05/08/23 Time Patient Seen: 06:45 Event Note (Rapid Response, Code, or fall): Contacted by nursing due to pt with recent onset significant bleeding again. She appears to be bleeding around her Bakri balloon, and also through the drain. She has overflowed the attached NITHYA drain. Total blood loss more than an additional 1000mL. Ordered activation of the massive transfusion protocol with DIC labs, transfusion of 2 units PRBCs. Pt will be taken back to the OR emergently for removal and replacement of Bakri balloon after repeat D&C. Dr Cook and OR team notified.
[2023-05-08] MEDS: IBUPROFEN 600 MG TABLET PO ×3 (13:13→23:55)
[2023-05-08 13:15] LABS: Add Manual Diff / Slide Review NO; Basophils Absolute Auto 100 /uL (0-100); Basophils Percent Auto 0.3 % (0-2); Eosinophils Absolute Auto 0 /uL (0-450); Hemoglobin 8.6 g/dL (12.0-16.0); Lymphocytes Absolute Auto 1900 /uL (1100-4500); Lymphocytes Percent Auto 11.1 % (25-40); Mean Corpuscular HGB Conc 34.4 % (30-36); Mean Corpuscular Hemoglobin 30.7 PG (26-34); Monocytes Absolute Auto 900 /uL (0-900); Monocytes Percent Auto 5.3 % (3-14); Neutrophils Absolute Auto 13900 /uL (1500-7000); Neutrophils Percent Auto 83.3 % (50-75); Platelet Count 162 X10^3/uL (150-400); Red Blood Cell Count 2.81 X10^6/uL (4.0-5.2); White Blood Cell Count 16.7 X10^3/uL (4.5-11.0)
[2023-05-08] MEDS: GENTAMICIN 120 MG in SODIUM CHLORIDE 0.9% 100 ML 103 MG IV (13:42)
[2023-05-08] MEDS: LANOLIN OINT 7 GM 1 APPLIC TOP (23:54)
[2023-05-09] MEDS: METHYLERGONOVINE 0.2 MG TABLET PO ×4 (02:41→22:25)
[2023-05-09] MEDS: AMPICILLIN 2,000 MG in SODIUM CHLORIDE 0.9% 100 ML 200 MG IV ×2 (02:42→08:57)
[2023-05-09] MEDS: LACTATED RINGERS 1,000 ML 100 ML IV (02:42)
[2023-05-09 06:13] LABS: Basophils Absolute Auto 0 /uL (0-100); Basophils Percent Auto 0.1 % (0-2); Eosinophils Absolute Auto 100 /uL (0-450); Lymphocytes Absolute Auto 1300 /uL (1100-4500); Lymphocytes Percent Auto 16.5 % (25-40); Mean Corpuscular HGB Conc 34.8 % (30-36); Mean Corpuscular Hemoglobin 30.8 PG (26-34); Mean Corpuscular Volume 88.5 fL (80-100); Monocytes Absolute Auto 400 /uL (0-900); Monocytes Percent Auto 5.4 % (3-14); Neutrophils Absolute Auto 6300 /uL (1500-7000); Platelet Count 108 X10^3/uL (150-400); Red Blood Cell Count 2.21 X10^6/uL (4.0-5.2); Red Cell Distribution Width 14.3 % (11.6-14.8); White Blood Cell Count 8.1 X10^3/uL (4.5-11.0)
[2023-05-09] MEDS: IBUPROFEN 600 MG TABLET PO ×3 (06:14→18:27)
[2023-05-09] MEDS: ACETAMINOPHEN 325 MG TABLET 650 MG PO ×3 (06:15→18:27)
[2023-05-09] MEDS: OXYCODONE IR 5 MG TABLET PO ×5 (06:15→23:34)
[2023-05-09 06:19] LABS: Estimated Glomerular Filt Rate > 60 mL/min (>60)
[2023-05-09 06:27] LABS: Hemoglobin 6.8 g/dL (12.0-16.0)
[2023-05-09 06:28] LABS: Add Manual Diff / Slide Review SLIDE REVIEW; Hematocrit 19.6 % (36-46)
[2023-05-09 07:13] LABS: Anisocytosis 1+
[2023-05-09] MEDS: PRENATAL VIT,CALC/IRON/FOLIC 1 TABLET 1 TAB PO (08:58)
[2023-05-09] MEDS: DOCUSATE 100 MG CAPSULE PO (08:58)
[2023-05-09] MEDS: FERROUS SULFATE 325 MG TABLET PO (08:58)
[2023-05-09] MEDS: GENTAMICIN 370 MG in SODIUM CHLORIDE 0.9% 100 ML 109.25 MG IV (13:57)
--- NOTE | 2023-05-09 14:11 | PM.OBPN.1 ---
Subjective - OB Subjective Date Patient Seen: 05/09/23 Time Patient Seen: 08:00 Interval history: The pt is feeling well this morning. She is having some sweats but no chills and has been afebrile. She continues to work on , but is making colostrum. She denies any chest pain, worsening LE edema, SOB, lightheadedness, nausea or vomiting. She has had scant vaginal bleeding, and < 30cc into the Bakri drain. Her davis remains in place. She has passed flatus. Exam Vital Signs (past 8 hours): Oxygen Delivery Method Room Air Narrative Exam Narrative: Gen: NAD, sitting comfortably in bed, appears well CV: RRR, no murmurs Resp: clear to auscultation bilaterally Abd: soft, appropriately tender, fundus firm and at the umbilicus, nondistended Ext: no edema Objective Labs 05/09/23 05:46 05/09/23 05:46 Labs: Laboratory Results - last 24 hr 05/09/23 05/09/23 05:46 05:46 WBC 8.1 D RBC 2.21 L Hgb 6.8 L* Hct 19.6 L* MCV 88.5 MCH 30.8 MCHC 34.8 RDW 14.3 Plt Count 108 L Neut % (Auto) 77.0 H Lymph % (Auto) 16.5 L [place] % (Auto) 5.4 Eos % (Auto) 1.0 L Baso % (Auto) 0.1 Neut # (Auto) 6300 Lymph # (Auto) 1300 [place] # (Auto) 400 Eos # (Auto) 100 Baso # (Auto) 0 RBC Morphology See below Anisocytosis 1+ H Creatinine 0.64 Estimated GFR > 60 Assessment & Plan Plan Comments: 32yo PPD/POD #1 s/p spontaneous vaginal delivery complicated by retained placenta with manual extraction and subsequent hemorrhage requiring D&C and placement of Bakri balloon which failed several hours later, attempts at replacement vaginally were unsuccessful and repeat D&C was performed and ultimately laparatomy and hysterotomy were performed for placement of the Bakri again. Pt with 3,759mL of blood loss ultimately. Now with significant blood loss anemia. Pt is asymptomatic, but has not yet gotten out of bed. Ampicillin and Gentamicin initiated after surgery due to questionable sterility of procedure due to emergent nature. - Gradually deflate Bakri balloon today, 10cc every 30 minutes. Approximately 100cc in the balloon. Monitor for bleeding very carefully. - Stop Ampicillin/Gentamicin after 1pm Gentamicin dose - Continue PO Methergine until balloon removed, then okay to stop - Continue support. Recommend pumping after feeds. Pt high risk for Gavi syndrome. Will obtain labs tomorrow morning, and plan to repeat a couple weeks as well. - If pt remains asymptomatic once out of bed, IV iron infusion. If symptomatic, blood transfusion. Time Spent With Patient Time: Total time spent is greater than 50% in coordination of care (as documented) at patient's floor/unit and/or counseling patient: Time with patient: 15-24 minutes
[2023-05-09] MEDS: IRON SUCROSE 300 MG in SODIUM CHLORIDE 0.9% 250 ML 176.667 MG IV (15:29)
[2023-05-10] MEDS: ACETAMINOPHEN 325 MG TABLET 650 MG PO ×3 (00:50→14:33)
[2023-05-10] MEDS: IBUPROFEN 600 MG TABLET PO ×3 (00:50→14:32)
[2023-05-10] MEDS: OXYCODONE IR 5 MG TABLET PO ×3 (03:44→14:35)
[2023-05-10] MEDS: METHYLERGONOVINE 0.2 MG TABLET PO (04:18)
--- NOTE | 2023-05-10 04:38 | PM.OBDS.1 ---
Discharge Providers Provider Date of admission: 05/07/23 15:46 Discharge Date: 05/10/23 Primary care physician: Maile BRADY Provider Consults: 05/08/23 10:17 Consult to Outpatient Services Director Routine Comment: 05/09/23 02:36 Consult to Outpatient Services Director Routine Comment: Discharge provider: Cydney Martinez MD Summary Hospital Course Date Patient Seen: 05/10/23 Diagnoses: 38w6d gestation GBS negative Rh positive Umbilical cord avulsion with retained placenta hemorrhage D&C x2 Bakri balloon placement x 2 with second placement via laparotomy and hysterotomy Hospital Course: The pt presented in active labor with SROM at home. She received an epidural for pain control. She progressed to complete dilation and had an of a viable baby girl. In active management of the 3rd stage of labor, the umbilical cord avulsed from the placenta, and the placenta had to be manually extracted. The pt continued to have brisk bleeding despite pitocin, methergine, TXA, and cytotec. She was taken back to the OR for D&C under anesthesia and placement of a Bakri balloon. Her bleeding was minimal after this. She was continued on PO Methergine. A few hours later, the pt started having brisk bleeding again, with the Bakri drain overflowing and bleeding around the balloon as well. She received TXA, hemabate, and pitocin again. 2 units of PRBCs were transfused. She was taken back to the OR where the Bakri was removed. D&C was again performed. Using ultrasound guidance, multiple attempts were made to place the Bakri again, however, it was noted to be entering the myometrium rather than the endometrial canal. Concern arose for creating false canals in the uterus, and the decision was made to proceed with laparotomy and hysterotomy for placement of the Bakri. The Bakri was successfully placed surgically, and inflated with 100cc of saline. After this, the pts bleeding was appropriate. She was continued on PO Methergine, in addition to IV Ampicillin and Gentamicin after the surgery due to concerns for development of endometritis due to the amount of manipulation vaginally and intraabdominally. The Bakri was deflated 24hrs later, however was noted to have only approximately 12cc of fluid in it. The balloon appeared to have been gradually leaking overnight, however no increase in bleeding was noted. The PO Methergine and IV antibiotics were discontinued after 24hrs. The pt was noted to have a significant drop in her H/H, however she remained asymptomatic. She received an IV iron transfusion. The day of discharge her H/H remained very low, and she received an additional 2 units of PRBCs. The day of discharge the pt was ambulating, passing flatus, voiding without difficulty. Her lochia was decreasing appropriately, and relatively minimal similar to a light period. Her pain was well controlled on oral medications. She was with good latch, and will f/u with as an outpatient. She is at high risk for Gavi syndrome. She will f/u in 1 week for incision check. Peripartum Data Infant Delivery Method: Natural Vaginal Laceration Description: Perineal - 1st Degree Episiotomy description: None complications: transfusion, uterine atony and retained placenta [place] 1: Gender: Female Disposition of : home Discharge Diagnosis (1) Spontaneous vaginal delivery: Status: Acute (2) Retained placenta: Status: Acute (3) hemorrhage: Status: Acute (4) S/P laparotomy: Status: Acute Time Spent with Patient Time attestation: Total time spent providing and/or coordinating discharge services: Objective Labs 05/10/23 06:20 05/09/23 05:46 Labs: Laboratory Results - last 24 hr 05/09/23 05/09/23 05:46 05:46 WBC 8.1 D RBC 2.21 L Hgb 6.8 L* Hct 19.6 L* MCV 88.5 MCH 30.8 MCHC 34.8 RDW 14.3 Plt Count 108 L Neut % (Auto) 77.0 H Lymph % (Auto) 16.[address] % (Auto) 5.4 Eos % (Auto) 1.0 L Baso % (Auto) 0.1 Neut # (Auto) 6300 Lymph # (Auto) 1300 Lane # (Auto) 400 Eos # (Auto) 100 Baso # (Auto) 0 RBC Morphology See below Anisocytosis 1+ H Creatinine 0.64 Estimated GFR > 60 Exam Vital Signs (past 8 hours): Oxygen Delivery Method Room Air Resp Auscultation: clear to auscultation bilaterally Cardio Rate: regular rate Rhythm: regular rhythm Heart Sounds: S1 normal, S2 normal and no murmurs GI Inspection: non-distended and incision (dressing c/d/i) Palpation: soft, No guarding and tender (appropriately tender) Auscultation: normal bowel sounds Other: fundus firm and below the umbilicus Extrem Right upper extremity: no edema Discharge Plan Discharge Plan Patient Disposition: Home Discharge orders & Medications Prescriptions: New acetaminophen 325 mg Tablet 650 mg PO Q6H Qty: 30 0RF ferrous sulfate 325 mg (65 mg iron) Tablet 325 mg PO DAILY Qty: 30 0RF docusate sodium 100 mg Capsule 100 mg PO DAILY Qty: 30 0RF ibuprofen 600 mg Tablet 600 mg PO Q6H Qty: 60 0RF oxycodone 5 mg Tablet 5 mg PO Q4H PRN (Reason: Pain, Moderate (4-6)) Qty: 30 0RF Continued (DME) Double Electric Breast Pump and Supplies See Rx Instructions .ROUTE .MEDSUPPLY Qty: 1 0RF Rx Instructions: As directed prenat.vits,nelson,[id number] Tablet 1 tab PO DAILY cholecalciferol (vitamin D3) 50 mcg (2,000 unit) capsule 50 mcg PO DAILY Follow up/Referrals: Provider,Maile BRADY [Primary Care Provider] - Cydney Martinez MD [Physician] - (You have a follow up appointment with Dr. Martinez scheduled for May 15 @2:30pm. Check-in 15min prior.) Diet/Activity/Treatments Diet: Diet as Tolerated and Regular Skin/Wound/Dressing Care Report to your healthcare provider any signs of infection, such as:: chills, fever, increased pain and unusual drainage Visit Report/Discharge Packet Instructions: DI for Stand Alone Forms: Discharge: Care, Patient Portal/API, Stroke Signs & Symptoms Discharge Data Primary Care Provider: ProviderMaile Discharges patient from system. Discharge Date/Time: 05/10/23 15:50
[2023-05-10 06:48] LABS: Basophils Absolute Auto 0 /uL (0-100); Basophils Percent Auto 0.4 % (0-2); Eosinophils Absolute Auto 100 /uL (0-450); Eosinophils Percent Auto 1.4 % (2-4); Lymphocytes Absolute Auto 1600 /uL (1100-4500); Mean Corpuscular HGB Conc 34.8 % (30-36); Mean Corpuscular Volume 89.1 fL (80-100); Monocytes Absolute Auto 400 /uL (0-900); Neutrophils Absolute Auto 5700 /uL (1500-7000); Neutrophils Percent Auto 73.2 % (50-75); Platelet Count 130 X10^3/uL (150-400); Red Blood Cell Count 2.08 X10^6/uL (4.0-5.2); Red Cell Distribution Width 14.4 % (11.6-14.8); White Blood Cell Count 7.8 X10^3/uL (4.5-11.0)
[2023-05-10 06:58] LABS: Add Manual Diff / Slide Review SLIDE REVIEW; Hematocrit 18.6 % (36-46); Hemoglobin 6.5 g/dL (12.0-16.0)
[2023-05-10 07:01] LABS: Prolactin 133.9 ng/mL (3.0-18.6)
[2023-05-10 07:29] LABS: TSH w/ Reflex to FT4 3.49 uIU/mL (0.47-4.68)
[2023-05-10 07:47] LABS: Anisocytosis 1+; Hypochromasia 1+; Spherocytes 1+
[2023-05-10] MEDS: DOCUSATE 100 MG CAPSULE PO (07:51)
[2023-05-10] MEDS: FERROUS SULFATE 325 MG TABLET PO (07:52)
[2023-05-10] MEDS: PRENATAL VIT,CALC/IRON/FOLIC 1 TABLET 1 TAB PO (07:52)
[2023-05-10 08:04] VITALS: BP 95/60; PULSE 71; RESP 16; TEMP 36.9
[2023-05-10 11:28] VITALS: BP 112/52; PULSE 82; RESP 16; TEMP 36.7
[2023-05-10 11:36] VITALS: BP 104/61; PULSE 82; RESP 16; TEMP 37
[2023-05-10 11:50] VITALS: BP 114/60; PULSE 89; RESP 15; TEMP 36.6
[2023-05-10 12:33] VITALS: BP 114/60; PULSE 89; RESP 15; TEMP 36.6
== END 2023-05-10 15:50 | disposition home or self-care (01) | DRG 768 ==
PROVIDERS: Obstetrics & Gynecology; Registered Nurse; Admitting Provider Family Medicine; Referring Provider Specialist; Visit Provider Family Medicine
PROC: 0W3R7ZZ Control Bleeding in Genitourinary Tract, Via Natural or Artificial Opening (ICD-10-PCS; CPT 58120; principal; 2023-05-08 01:30)
PROC: 0WJJ0ZZ Inspection of Pelvic Cavity, Open Approach (ICD-10-PCS; CPT 49000; 2023-05-08 07:30)
DX: O42.02 Full-term premature rupture of membranes, onset of labor within 24 hours of rupture (principal); Z37.0 Single live birth; O72.2 Delayed and secondary postpartum hemorrhage; Z3A.38 38 weeks gestation of pregnancy; Z67.40 Type O blood, Rh positive
CPT/HCPCS: 36415; 36430; 59050; 59160; 59400; 59899; 76857; 82565; 84146; 84443; 85025; 85379; 85384; 85610; 85730; 86850; 86900; 86901; 86927; P9016; G0379; J0290; J0330; J0690; J1100; J1170; J1756; J2210; J2405; J2590; J2704; J3010; J3490; S0191

== ENCOUNTER 2023-10-18 14:30 | Outpatient (RCR) | payer OTHER, SELFPAY ==
--- NOTE | 2023-06-28 17:35 | PT.OIE ---
Current Diagnoses Muscle weakness (generalized) (06/28/23) Other specified disorders of muscle (06/28/23) Encounter for full-term uncomplicated delivery (06/28/23) Pelvic and perineal pain (06/28/23) Abnormal posture (06/28/23) Past Medical History (Last Updated 05/11/23 @ 13:25 by Cydney Martinez MD) Mononucleosis (~2012) hemorrhage Spontaneous vaginal delivery Past Surgical History (Last Updated 05/11/23 @ 13:25 by Cydney Martinez MD) History of repair of ACL (~2009) S/P ASA/PRK (advanced surface ablation photorefractive keratectomy) S/P laparotomy Visit Care Team Role Provider Type ROLANDA Clayton Family Provider Non-Staff Primary Care Provider Specialty: Nursing Address: [address] [place] [address], [address] Phone: Email: Cydney Martinez MD Attending Provider Physician Referring Provider Specialty: Family Practice Address: [address] [place] [address], [id number] Email: [email or web address] Physical Therapy Initial Evaluation PT-OP-A Visit Information Start: 06/26/23 16:51 Freq: Status: Active Protocol: Document 06/28/23 15:01 LRN (Rec: 06/28/23 17:32 LRN [id number]) Out-Patient Physical Therapy Visit Information Visit Information Visit Type Initial Evaluation Visit Start Time 15:01 Visit Stop Time 15:45 Total Visit Minutes 44 Visit Number 1 Evaluation Information Evaluation Date 06/28/23 Precautions Precautions I/S pt to start with body wt squats and slowly build up to lifting. PT-OP-B Current Condition Start: 06/26/23 16:51 Freq: Status: Active Protocol: Document 06/28/23 15:01 LRN (Rec: 06/28/23 17:32 LRN [id number]) Current Condition History of Current Condition Onset Date 05/07/23 Current Complaints Diastasis Rectus, and concerned of having a weak PF. History of Current Condition Pt reports being G1,P1. Baby girl was born 05/07/23. Pt reports recently having her 6 wk post check, and is concerned she has a diastasis rectus (DR) and she has occasional low back pain with walking. She states she walks 1-2 miles daily. Her LBP was mostly during but she now has occasional pain that is the same ache as during , with walking , but not nearly as much pain. Pt reports having a vaginal with minor tearing that didn't require stitching. Currently she is not leaking, but she wants to make sure she has ex's to strengthen her PF . She has aches and pain around the scar and hasn't attempted abdominal exercises. Pt reports doing lifting exercises while and noticed a small DR. Pt reports complications post (see developmental history below) that resulted in a scar. Prior Treatments and Tests PT for LBP during that the pt felt didn't seem to help. Developmental History Developmental History Pt's was vaginal but then had vaginal D&C, then 6 hrs later had essential a C -section to stop the bleeding. Lost a lot of blood requiring 4 quarts of blood transfused. Treatment Goals Patient/Caregiver Goals Pt goals: Ex's to help close Diastasis Rectus to decrease LBP with daily walk 1-2 miles. Ex's to prevent urinary leakage. Bladder retraining to minimize frequency of urination. Prior Functional Status Baseline Function- Recreation/Hobbies Ex: Walking, Wgt lifting - bench press, lift, free wgts (3x/week) done throughout . Current Functional Impairments (Reported) Functional Limitations- Recreation/ Ex: Walking & Arm wgt lifting Hobbies . Not ex to engage abdominals . Personal Factors Other Personal Factors That May Effect Pt left the [employer] in January to Therapy/Recovery become a mom. Her spouse is in the [employer] and will be gone for 3 weeks in August of 2023 . Pt will be bringing baby to appointments. PT-OP-C Subjective Start: 06/26/23 16:51 Freq: Status: Active Protocol: Document 06/28/23 15:01 LRN (Rec: 06/28/23 17:32 LRN [id number]) Patient Questionnaires Pelvic Pain and Urgency/Frequency Patient Symptom Scale Pelvic Pain Score 9 PT-OP-I Pelvic Floor Start: 06/26/23 16:51 Freq: Status: Active Protocol: Document 06/28/23 15:01 LRN (Rec: 06/28/23 17:32 LRN [id number]) Pelvic Floor Assessment Bowel Bowel Movement Frequency every other day, large bowel mvmts. Ashley Stool Chart Type 1-7 4 Pelvic Clock Pelvic Clock 6-9 Tenderness Pelvic Clock Other Tenderness at Pelvic Clock 3. Perineal Descent Resting Absent Bearing Absent Contraction Ability Voluntary Contraction Moderate Voluntary Relaxation Moderate Manual Muscle Testing Left 2 Manual Muscle Testing Right 3 Manual Muscle Testing Anterior 2 Manual Muscle Testing Posterior 3 Muscle Endurance (Seconds) 4 Number of Quick Contractions In 10 4 Seconds PT-OP-J Posture/Palpation/Skin Start: 06/26/23 16:51 Freq: Status: Active Protocol: Document 06/28/23 15:01 LRN (Rec: 06/28/23 17:32 LRN [id number]) Posture Evaluation Position Standing Head/C-Spine Posture Forward Head T-Spine Posture Increased Kyphosis L-Spine Posture Increased Lordosis,Shifted Left Scapula Posture (L) Elevated Comments Posture Comments L shoulder and scapula are high, L-spine slight shift to left. Palpation Assessment Location Abdomen Palpation Location Diastasis Rectus Palpation Details Above umbilicus: 1-3 fingerwidths (FW), 2-2 FW, 3-2 FW, 4-1 FW Below umbilicus: 1-3 FW. PT-OP-K Range of Motion Start: 06/26/23 16:51 Freq: Status: Active Protocol: Document 06/28/23 15:01 LRN (Rec: 06/28/23 17:32 LRN [id number]) Lumbar Spine Range of Motion Lumbar Spine Active Degrees Testing Position Standing Flexion 75 Extension 25 Rotation Left 20 Rotation Right 23 Lateral Flexion Left 20 Lateral Flexion Right 20 Comments Trunk AROM: Flexion is 75 deg ?s with 70 deg?s hip flexion, Trunk extension is 25 deg?s with 10 deg?s hip extension Hip Goniometric Range of Motion Hip Right Passive Testing Position Supine Internal Rotation 35 External Rotation 60 Left Passive Testing Position Supine Internal Rotation 25 External Rotation 50 PT-OP-M Strength Start: 06/26/23 16:51 Freq: Status: Active Protocol: Document 06/28/23 15:01 LRN (Rec: 06/28/23 17:32 LRN [id number]) Trunk Strength Trunk Manual Muscle Testing Core Stabilization Pt demonstrates core weakness with rotation during LE MMT. Hand Wheel Setter/Pinch Strength Hand Dominance Hand Dominance Right Hip Strength Hip Manual Muscle Testing Right Abduction 4+ Good+ Comments Strength is 5/5 except as indicated above. Left Extension (S1) 3+ Fair+ External Rotation 3 Fair Comments Strength is 5/5 except as indicated above. PT-OP-Q Treatments Start: 06/26/23 16:51 Freq: Status: Active Protocol: Document 06/28/23 15:01 LRN (Rec: 06/28/23 17:32 LRN [id number]) Self-Care/Home Management Treatment Education Other Education Discussed results of evaluation, goals, and plan of care (POC). Pt agreeable to goals and POC. Pt educated in use of Bladder Diary and I/S in tracking for 1 week. Discussed use of 2 different diaries for tracking of bladder. Activities Self-Care/Home Management Activities Issued & reviewed HEP: Gaby ex's and discussed exercise of Quick Flicks, Long Holds and Aggravators. PT-OP-T Assessment and Plan Start: 06/26/23 16:51 Freq: Status: Active Protocol: Document 06/28/23 15:01 LRN (Rec: 06/28/23 17:32 LRN [id number]) Physical Therapy Assessment Rehab Potential Rehabilitation Potential Good Evaluation Complexity Number of Personal Factors/Comorbidities 1-2 Number of Body Systems Impaired 4 or More Clinical Presentation at Evaluation Evolving Impairments Impairments Activity Tolerance,Pain, Posture,ROM,Soft Tissue Mobility,Strength,Transfers Goals Four Impairment PF tenderness Short Term Goal (STG) Pt will have minimal areas of tenderness to palpation of the PF. STG Duration 3 wks-07/27/23 Senior Care Goal (LTG) Improve PF strength of contraction with improved mobility. LTG Duration 6 wks-08/10/23 Three Impairment PF weakness & tenderness with increased frequency of urination Short Term Goal (STG) Bladder retraining to minimize frequency of urination. STG Duration 2 wks-07/13/23 Senior Care Goal (LTG) Pt will be educated in PF ex's to minimize and lessen in the future urinary leakage. LTG Duration 12 wks-09/28/23 Two Impairment Diastasis Rectus (DR) with occasional LBP Short Term Goal (STG) Strengthen core with pt able to identify her DR and when she is able to progress core strengthening based on abdominal doming. STG Duration 6 wks-08/10/23 Senior Care Goal (LTG) Pt will be independent in a core strengthening program to minimize her DR with ability to walk 1-2 miles without LBP. LTG Duration 12 wks-09/28/23 One Impairment Pt lacks appropriate self care HEP. Short Term Goal (STG) Education in proper methods for transfer (log roll) with coordination of breathing/TA tightening, PF contractions, and vulvar/genital care. STG Duration 3 wks-07/27/23 [employer]ician Goal (LTG) Pt will be independent with a self care HEP of core (TA)/PF strengthening and hip ROM exercises. LTG Duration 12 wks-09/28/23 Assessment Summary Assessment Pt is a 32 yo female who is 6 wks post- after vaginal that resulted in a C- section to stop bleeding from D&C after vaginal . The pt has soft tissue restrictions at the well healed scar and palpable abdominal discomfort when assessing for a diastasis rectus (DR). She has a notable DR above umbilicus and 1 below. She is having occasional LBP, probably due to decreased core stability and poor posturing, aggrevated by her DR. The pt demonstrates weakness of her core and L hip as well as decreased hip rotation mobility. The pt's PF has areas of tenderness and decreased contraction ability, due to soft tissue tightness and weak PF contraction. The pt will benefit from skilled physical therapy to work to achieve the above stated goals . Physical Therapy Plan Frequency and Duration Frequency of Treatment 2x/Week Duration of treatment (weeks) 12 Plan of Care Start Date 06/28/23 Plan of Care End Date 09/28/23 Therapeutic Interventions Therapeutic Interventions Home Exercise Program,Joint Mobilizations,Manual Therapy, Neuromuscular Re-education, Self-Care/Home Management,Soft Tissue Mobilization,Taping, Therapeutic Activities, Therapeutic Exercises Modalities Biofeedback,Cold Pack/Ice Massage,Electric Stimulation, Hot Packs,Ultrasound Next Visit Focus/Plan Next Note Type Treatment Note Next Visit Plan NEXT: Reviewed Bladder dairy and discussed fluid intake (AM /PM), & nighttime voiding frequency, and educating pt in bladder retraining for reducing nighttime voiding. EMG biofeedback assessment. Pt education in proper methods for transfer (log roll) with coordination of breathing/TA tightening, PF contractions, and vulvar/genital care. Pt education in postural changes due to with recommendations for self corrections Discuss different pads and usage (urine vs menstrual). Manual: PF stretching to reduce pain and decrease vaginal gapping. Exer: ?PF stretching or strengthening. TA for DR alvarez.
--- NOTE | 2023-06-28 17:36 | PT.OPPOC ---
Physical, Occupational & Speech Therapy At [facility] Current Diagnoses Muscle weakness (generalized) (06/28/23) Other specified disorders of muscle (06/28/23) Encounter for full-term uncomplicated delivery (06/28/23) Pelvic and perineal pain (06/28/23) Abnormal posture (06/28/23) Visit Care Team Role Provider Type ROLANDA Clayton Family Provider Non-Staff Primary Care Provider Specialty: Nursing Address: [address] [place] [address], [place], [address] Phone: Email: Cydney Martinez MD Attending Provider Physician Referring Provider Specialty: Family Practice Address: [address] [place] [address], [facility] [place], [address] Email: [email or web address] Plan Of Care PT-OP-T Assessment and Plan Start: 06/26/23 16:51 Freq: Status: Active Protocol: Document 06/28/23 15:01 LRN (Rec: 06/28/23 17:32 LRN [id number]) Physical Therapy Assessment Rehab Potential Rehabilitation Potential Good Evaluation Complexity Number of Personal Factors/Comorbidities 1-2 Number of Body Systems Impaired 4 or More Clinical Presentation at Evaluation Evolving Impairments Impairments Activity Tolerance,Pain, Posture,ROM,Soft Tissue Mobility,Strength,Transfers Goals Four Impairment PF tenderness Short Term Goal (STG) Pt will have minimal areas of tenderness to palpation of the PF. STG Duration 3 wks-07/27/23 Manager [employer] Goal (LTG) Improve PF strength of contraction with improved mobility. LTG Duration 6 wks-08/10/23 Three Impairment PF weakness & tenderness with increased frequency of urination Short Term Goal (STG) Bladder retraining to minimize frequency of urination. STG Duration 2 wks-07/13/23 [employer] Goal (LTG) Pt will be educated in PF ex's to minimize and lessen in the future urinary leakage. LTG Duration 12 wks-09/28/23 Two Impairment Diastasis Rectus (DR) with occasional LBP Short Term Goal (STG) Strengthen core with pt able to identify her DR and when she is able to progress core strengthening based on abdominal doming. STG Duration 6 wks-08/10/23 Nursing Home Goal (LTG) Pt will be independent in a core strengthening program to minimize her DR with ability to walk 1-2 miles without LBP. LTG Duration 12 wks-09/28/23 One Impairment Pt lacks appropriate self care HEP. Short Term Goal (STG) Education in proper methods for transfer (log roll) with coordination of breathing/TA tightening, PF contractions, and vulvar/genital care. STG Duration 3 wks-07/27/23 [employer] Goal (LTG) Pt will be independent with a self care HEP of core (TA)/PF strengthening and hip ROM exercises. LTG Duration 12 wks-09/28/23 Assessment Summary Assessment Pt is a 32 yo female who is 6 wks post- after vaginal that resulted in a C- section to stop bleeding from D&C after vaginal . The pt has soft tissue restrictions at the well healed scar and palpable abdominal discomfort when assessing for a diastasis rectus (DR). She has a notable DR above umbilicus and 1 below. She is having occasional LBP, probably due to decreased core stability and poor posturing, aggrevated by her DR. The pt demonstrates weakness of her core and L hip as well as decreased hip rotation mobility. The pt's PF has areas of tenderness and decreased contraction ability, due to soft tissue tightness and weak PF contraction. The pt will benefit from skilled physical therapy to work to achieve the above stated goals . Physical Therapy Plan Frequency and Duration Frequency of Treatment 2x/Week Duration of treatment (weeks) 12 Plan of Care Start Date 06/28/23 Plan of Care End Date 09/28/23 Therapeutic Interventions Therapeutic Interventions Home Exercise Program,Joint Mobilizations,Manual Therapy, Neuromuscular Re-education, Self-Care/Home Management,Soft Tissue Mobilization,Taping, Therapeutic Activities, Therapeutic Exercises Modalities Biofeedback,Cold Pack/Ice Massage,Electric Stimulation, Hot Packs,Ultrasound Next Visit Focus/Plan Next Note Type Treatment Note Next Visit Plan NEXT: Reviewed Bladder dairy and discussed fluid intake (AM /PM), & nighttime voiding frequency, and educating pt in bladder retraining for reducing nighttime voiding. EMG biofeedback assessment. Pt education in proper methods for transfer (log roll) with coordination of breathing/TA tightening, PF contractions, and vulvar/genital care. Pt education in postural changes due to with recommendations for self corrections Discuss different pads and usage (urine vs menstrual). Manual: PF stretching to reduce pain and decrease vaginal gapping. Exer: ?PF stretching or strengthening. TA for DR closure. Plan of Care Dates Plan of Care Start Date 06/28/23 Plan of Care End Date 09/28/23 Electronically Signed by: Jacy William, PT 06/28/23 5539 If you are in agreement with this Plan of Care, please return a signed and dated copy. I have reviewed this Plan of Care and certify that the skilled therapy services above are required to meet the patient?s needs. Physician Signature Date Printed Name and Credentials Clinical Instructor Signature Printed Name and Credentials
--- NOTE | 2023-07-02 16:29 | PT.OTN ---
Current Diagnoses Muscle weakness (generalized) (07/02/23) Other specified disorders of muscle (07/02/23) Encounter for full-term uncomplicated delivery (07/02/23) Pelvic and perineal pain (07/02/23) Abnormal posture (07/02/23) Physical Therapy Treatment Note PT-OP-A Visit Information Start: 06/26/23 16:51 Freq: Status: Active Protocol: Document 07/02/23 12:20 LRN (Rec: 07/02/23 15:03 LRN [id number]) Out-Patient Physical Therapy Visit Information Visit Information Visit Type Treatment Note Visit Start Time 14:12 Visit Stop Time 14:47 Total Visit Minutes 35 Visit Number 2 Evaluation Information Evaluation Date 06/28/23 Precautions Precautions MD I/S pt to start with body wt squats and slowly build up to lifting. Wgt is 195# PT-OP-B Current Condition Start: 06/26/23 16:51 Freq: Status: Active Protocol: Document 06/28/23 15:01 LRN (Rec: 06/28/23 17:32 LRN [id number]) Current Condition History of Current Condition Onset Date 05/07/23 Current Complaints Diastasis Rectus, and concerned of having a weak PF. History of Current Condition Pt reports being G1,P1. Baby girl was born 05/07/23. Pt reports recently having her 6 wk post check, and is concerned she has a diastasis rectus (DR) and she has occasional low back pain with walking. She states she walks 1-2 miles daily. Her LBP was mostly during but she now has occasional pain that is the same ache as during , with walking , but not nearly as much pain. Pt reports having a vaginal with minor tearing that didn't require stitching. Currently she is not leaking, but she wants to make sure she has ex's to strengthen her PF . She has aches and pain around the scar and hasn't attempted abdominal exercises. Pt reports doing lifting exercises while and noticed a small DR. Pt reports complications post (see developmental history below) that resulted in a scar. Prior Treatments and Tests PT for LBP during that the pt felt didn't seem to help. Developmental History Developmental History Pt's was vaginal but then had vaginal D&C, then 6 hrs later had essential a C -section to stop the bleeding. Lost a lot of blood requiring 4 quarts of blood transfused. Treatment Goals Patient/Caregiver Goals Pt goals: Ex's to help close Diastasis Rectus to decrease LBP with daily walk 1-2 miles. Ex's to prevent urinary leakage. Bladder retraining to minimize frequency of urination. Prior Functional Status Baseline Function- Recreation/Hobbies Ex: Walking, Wgt lifting - bench press, lift, free wgts (3x/week) done throughout . Current Functional Impairments (Reported) Functional Limitations- Recreation/ Ex: Walking & Arm wgt lifting Hobbies . Not ex to engage abdominals . Personal Factors Other Personal Factors That May Effect Pt left the [employer] in January to Therapy/Recovery become a mom. Her spouse is in the [employer] and will be gone for 3 weeks in August of 2023 . Pt will be bringing baby to appointments. PT-OP-C Subjective Start: 06/26/23 16:51 Freq: Status: Active Protocol: Document 07/02/23 12:20 LRN (Rec: 07/02/23 15:03 LRN [id number]) OP-PT Subjective Patient Comments Patient Comments Had BM x 1 since last session. Pt states during she was having BM mostly every day. States she is not uncomfortable and her BM's are type 4. PT-OP-I Pelvic Floor Start: 06/26/23 16:51 Freq: Status: Active Protocol: Document 07/02/23 12:20 LRN (Rec: 07/02/23 15:03 LRN [id number]) Pelvic Floor Assessment SEMG (uV) Baseline 1.3 Quick Contraction 1.4 10 Second Contraction 1.4 Recruitment Pattern Poor/Slow Relaxation Poor/Slow Holding Poor/Slow Stability of Hold Fair SEMG Stability of Rest Good Comments Pelvic Floor Comments Legs on Bolster QUICK Flicks (SCALE 0-25): 10 reps strength (uV's): avg work 1.4, avg rest 1.5. 20 reps strength (uV's): avg work 1.4, avg rest 1.5. LONG HOLDS (SCALE 0-10): 10 reps strength (uV's): avg work 1.4, avg rest 1.4. 20 reps strength (uV's): avg work 1.4, avg rest 1.4. PT-OP-J Posture/Palpation/Skin Start: 06/26/23 16:51 Freq: Status: Active Protocol: Document 06/28/23 15:01 LRN (Rec: 06/28/23 17:32 LRN [id number]) Posture Evaluation Position Standing Head/C-Spine Posture Forward Head T-Spine Posture Increased Kyphosis L-Spine Posture Increased Lordosis,Shifted Left Scapula Posture (L) Elevated Comments Posture Comments L shoulder and scapula are high, L-spine slight shift to left. Palpation Assessment Location Abdomen Palpation Location Diastasis Rectus Palpation Details Above umbilicus: 1-3 fingerwidths (FW), 2-2 FW, 3-2 FW, 4-1 FW Below umbilicus: 1-3 FW. PT-OP-K Range of Motion Start: 06/26/23 16:51 Freq: Status: Active Protocol: Document 06/28/23 15:01 LRN (Rec: 06/28/23 17:32 LRN [id number]) Lumbar Spine Range of Motion Lumbar Spine Active Degrees Testing Position Standing Flexion 75 Extension 25 Rotation Left 20 Rotation Right 23 Lateral Flexion Left 20 Lateral Flexion Right 20 Comments Trunk AROM: Flexion is 75 deg ?s with 70 deg?s hip flexion, Trunk extension is 25 deg?s with 10 deg?s hip extension Hip Goniometric Range of Motion Hip Right Passive Testing Position Supine Internal Rotation 35 External Rotation 60 Left Passive Testing Position Supine Internal Rotation 25 External Rotation 50 PT-OP-M Strength Start: 06/26/23 16:51 Freq: Status: Active Protocol: Document 06/28/23 15:01 LRN (Rec: 06/28/23 17:32 LRN [id number]) Trunk Strength Trunk Manual Muscle Testing Core Stabilization Pt demonstrates core weakness with rotation during LE MMT. Hand Mosaic Tiler/Pinch Strength Hand Dominance Hand Dominance Right Hip Strength Hip Manual Muscle Testing Right Abduction 4+ Good+ Comments Strength is 5/5 except as indicated above. Left Extension (S1) 3+ Fair+ External Rotation 3 Fair Comments Strength is 5/5 except as indicated above. PT-OP-Q Treatments Start: 06/26/23 16:51 Freq: Status: Active Protocol: Document 07/02/23 12:20 LRN (Rec: 07/02/23 15:03 LRN [id number]) Therapeutic Exercises Supine Exercises PF contractions Supine Exercise Name PF contraction w/LE roll in Reps/Minutes 1 SH x 10, 10 SH x 5 Other Exercises Vemg PF >< Other Exercise Name PF ><'s Quick Flicks, Long Holds. Reps/Minutes 30' see PF assessment above. Self-Care/Home Management Treatment Education Other Education Reviewed and discussed bladder diary. I/S pt in method to determine bowel transit time. Pt will eat beets and will monitor for excretion of beets. PT-OP-T Assessment and Plan Start: 06/26/23 16:51 Freq: Status: Active Protocol: Document 07/02/23 12:20 LRN (Rec: 07/02/23 15:03 LRN [id number]) Physical Therapy Assessment Goals Four Impairment PF tenderness Short Term Goal (STG) Pt will have minimal areas of tenderness to palpation of the PF. STG Duration 3 wks-07/27/23 Jail Goal (LTG) Improve PF strength of contraction with improved mobility. LTG Duration 6 wks-08/10/23 Three Impairment PF weakness & tenderness with increased frequency of urination Short Term Goal (STG) Bladder retraining to minimize frequency of urination. STG Duration 2 wks-07/13/23 Jail Goal (LTG) Pt will be educated in PF ex's to minimize and lessen in the future urinary leakage. LTG Duration 12 wks-09/28/23 Two Impairment Diastasis Rectus (DR) with occasional LBP Short Term Goal (STG) Strengthen core with pt able to identify her DR and when she is able to progress core strengthening based on abdominal doming. STG Duration 6 wks-08/10/23 Authorization Nurse Goal (LTG) Pt will be independent in a core strengthening program to minimize her DR with ability to walk 1-2 miles without LBP. LTG Duration 12 wks-09/28/23 One Impairment Pt lacks appropriate self care HEP. Short Term Goal (STG) Education in proper methods for transfer (log roll) with coordination of breathing/TA tightening, PF contractions, and vulvar/genital care. STG Duration 3 wks-07/27/23 Jail Goal (LTG) Pt will be independent with a self care HEP of core (TA)/PF strengthening and hip ROM exercises. LTG Duration 12 wks-09/28/23 Assessment Summary Assessment Pt is 6 wks post- after vaginal that resulted in a to stop bleeding from D&C after vaginal . Before she woke every 2 hrs to urinate, now every 2-3 hrs with spouse getting up in the night. Per Vemg biofeedback she shows no change in PF tone with quick or long holds, indicating extreme weakness or computer dysfunction. Pt demonstrates an Anal wink with PF contraction. Pt has had 1 BM in 7 days. She drinks ~52-68 oz's of fluid, including coffee (wgt of 195# would be 97 oz's in fluid for full hydration). Voiding frequency is dependent upon her waking to breastfeed. Physical Therapy Plan Frequency and Duration Frequency of Treatment 2x/Week Duration of treatment (weeks) 12 Plan of Care Start Date 06/28/23 Plan of Care End Date 09/28/23 Next Visit Focus/Plan Next Note Type Treatment Note Next Visit Plan NEXT: TA for DR antonio. Educate pt in bladder retraining for reducing nighttime voiding. Pt education in proper methods for transfer (log roll) with coordination of breathing/TA tightening, PF contractions, and vulvar/genital care. Pt education in postural changes due to with recommendations for self corrections Discuss different pads and usage (urine vs menstrual). Manual: PF stretching to reduce pain and decrease vaginal gapping. Exer: ?PF stretching or strengthening.
--- NOTE | 2023-07-09 17:06 | PT.OTN ---
Current Diagnoses Muscle weakness (generalized) (07/09/23) Other specified disorders of muscle (07/09/23) Encounter for full-term uncomplicated delivery (07/09/23) Pelvic and perineal pain (07/09/23) Abnormal posture (07/09/23) Physical Therapy Treatment Note PT-OP-A Visit Information Start: 06/26/23 16:51 Freq: Status: Active Protocol: Document 07/09/23 13:47 LRN (Rec: 07/09/23 14:38 LRN [id number]) Out-Patient Physical Therapy Visit Information Visit Information Visit Type Treatment Note Visit Start Time 13:47 Visit Stop Time 14:33 Total Visit Minutes 46 Visit Number 3 Evaluation Information Evaluation Date 06/28/23 Precautions Precautions MD I/S pt to start with body wt squats and slowly build up to lifting. Wgt is 195# PT-OP-B Current Condition Start: 06/26/23 16:51 Freq: Status: Active Protocol: Document 06/28/23 15:01 LRN (Rec: 06/28/23 17:32 LRN [id number]) Current Condition History of Current Condition Onset Date 05/07/23 Current Complaints Diastasis Rectus, and concerned of having a weak PF. History of Current Condition Pt reports being G1,P1. Baby girl was born 05/07/23. Pt reports recently having her 6 wk post check, and is concerned she has a diastasis rectus (DR) and she has occasional low back pain with walking. She states she walks 1-2 miles daily. Her LBP was mostly during but she now has occasional pain that is the same ache as during , with walking , but not nearly as much pain. Pt reports having a vaginal with minor tearing that didn't require stitching. Currently she is not leaking, but she wants to make sure she has ex's to strengthen her PF . She has aches and pain around the scar and hasn't attempted abdominal exercises. Pt reports doing lifting exercises while and noticed a small DR. Pt reports complications post (see developmental history below) that resulted in a scar. Prior Treatments and Tests PT for LBP during that the pt felt didn't seem to help. Developmental History Developmental History Pt's was vaginal but then had vaginal D&C, then 6 hrs later had essential a C -section to stop the bleeding. Lost a lot of blood requiring 4 quarts of blood transfused. Treatment Goals Patient/Caregiver Goals Pt goals: Ex's to help close Diastasis Rectus to decrease LBP with daily walk 1-2 miles. Ex's to prevent urinary leakage. Bladder retraining to minimize frequency of urination. Prior Functional Status Baseline Function- Recreation/Hobbies Ex: Walking, Wgt lifting - bench press, lift, free wgts (3x/week) done throughout . Current Functional Impairments (Reported) Functional Limitations- Recreation/ Ex: Walking & Arm wgt lifting Hobbies . Not ex to engage abdominals . Personal Factors Other Personal Factors That May Effect Pt left the [employer] in January to Therapy/Recovery become a mom. Her spouse is in the [employer] and will be gone for 3 weeks in August of 2023 . Pt will be bringing baby to appointments. PT-OP-C Subjective Start: 06/26/23 16:51 Freq: Status: Active Protocol: Document 07/09/23 13:47 LRN (Rec: 07/09/23 14:38 LRN [id number]) OP-PT Subjective Patient Comments Patient Comments At beets 4 days ago, had BM every other day (Sun, Sun) and hasn't noticed BM change. Had chilli with corn and 2 days later noticed corn in her stool. PT-OP-I Pelvic Floor Start: 06/26/23 16:51 Freq: Status: Active Protocol: Document 07/02/23 12:20 LRN (Rec: 07/02/23 15:03 LRN [id number]) Pelvic Floor Assessment SEMG (uV) Baseline 1.3 Quick Contraction 1.4 10 Second Contraction 1.4 Recruitment Pattern Poor/Slow Relaxation Poor/Slow Holding Poor/Slow Stability of Hold Fair SEMG Stability of Rest Good Comments Pelvic Floor Comments Legs on Bolster QUICK Flicks (SCALE 0-25): 10 reps strength (uV's): avg work 1.4, avg rest 1.5. 20 reps strength (uV's): avg work 1.4, avg rest 1.5. LONG HOLDS (SCALE 0-10): 10 reps strength (uV's): avg work 1.4, avg rest 1.4. 20 reps strength (uV's): avg work 1.4, avg rest 1.4. PT-OP-J Posture/Palpation/Skin Start: 06/26/23 16:51 Freq: Status: Active Protocol: Document 06/28/23 15:01 LRN (Rec: 06/28/23 17:32 LRN [id number]) Posture Evaluation Position Standing Head/C-Spine Posture Forward Head T-Spine Posture Increased Kyphosis L-Spine Posture Increased Lordosis,Shifted Left Scapula Posture (L) Elevated Comments Posture Comments L shoulder and scapula are high, L-spine slight shift to left. Palpation Assessment Location Abdomen Palpation Location Diastasis Rectus Palpation Details Above umbilicus: 1-3 fingerwidths (FW), 2-2 FW, 3-2 FW, 4-1 FW Below umbilicus: 1-3 FW. PT-OP-K Range of Motion Start: 06/26/23 16:51 Freq: Status: Active Protocol: Document 06/28/23 15:01 LRN (Rec: 06/28/23 17:32 LRN [id number]) Lumbar Spine Range of Motion Lumbar Spine Active Degrees Testing Position Standing Flexion 75 Extension 25 Rotation Left 20 Rotation Right 23 Lateral Flexion Left 20 Lateral Flexion Right 20 Comments Trunk AROM: Flexion is 75 deg ?s with 70 deg?s hip flexion, Trunk extension is 25 deg?s with 10 deg?s hip extension Hip Goniometric Range of Motion Hip Right Passive Testing Position Supine Internal Rotation 35 External Rotation 60 Left Passive Testing Position Supine Internal Rotation 25 External Rotation 50 PT-OP-M Strength Start: 06/26/23 16:51 Freq: Status: Active Protocol: Document 06/28/23 15:01 LRN (Rec: 06/28/23 17:32 LRN [id number]) Trunk Strength Trunk Manual Muscle Testing Core Stabilization Pt demonstrates core weakness with rotation during LE MMT. Hand Flexographic Press Set Up Operator/Pinch Strength Hand Dominance Hand Dominance Right Hip Strength Hip Manual Muscle Testing Right Abduction 4+ Good+ Comments Strength is 5/5 except as indicated above. Left Extension (S1) 3+ Fair+ External Rotation 3 Fair Comments Strength is 5/5 except as indicated above. PT-OP-Q Treatments Start: 06/26/23 16:51 Freq: Status: Active Protocol: Document 07/09/23 13:47 LRN (Rec: 07/09/23 14:38 LRN [id number]) Therapeutic Exercises Supine Exercises TA tightening Supine Exercise Name TA tightening Reps/Minutes Hold through 3 breaths x 5 Comments Cuing to not hold breath & relax upper body Sidelying Exercises TA tightening Sidelying Exercise Name TA tightening Side bilateral Reps/Minutes Hold through 3 breaths x 5 Comments Cuing to not hold breath & relax upper body Other Exercises Hands/knees TA Other Exercise Name Hands/knees TA Reps/Minutes Hold through 3 breaths x 5 Comments Cuing to not hold breath & relax upper body Manual Therapy Treatment Soft Tissue Mobilization Levator Ani ms Body Location Levator Ani ms Mobilization Type Sustained Pressure Body Position Hooklying PF superficial ms Body Location PF superficial ms Mobilization Type Sustained Pressure Body Position Hooklying Self-Care/Home Management Treatment Education Patient Education Home Exercise Program,Safety Other Education Pt educated in use of towel to approximate DR with transfer sup<>sit. Discussed when she could stop using towel for transfer (when not doming with head lift). Educated pt in bladder retraining for reducing nighttime voiding. Pt educated in urge deference techinque with discussion on how she can use the technique in the future for nighttime bladder retraining when she is no longer having to get up in the night to breastfeed (ie- reducing voiding times at nightime). Activities Self-Care/Home Management Activities HEP issued: TA tightening 4pt and I/S to do supine and sidelye. Handout issued & reviewed for DR protection with use of towel and I/S to use technique for transfers. Handout issued for log roll and s<>stand transfers coordinating with breath and PF contractions. Issued & reviewed (as noted above) Urge deference technique/Bladder retraining. PT-OP-T Assessment and Plan Start: 06/26/23 16:51 Freq: Status: Active Protocol: Document 07/09/23 13:47 LRN (Rec: 07/09/23 14:38 LRN [id number]) Physical Therapy Assessment Goals Four Impairment PF tenderness Short Term Goal (STG) Pt will have minimal areas of tenderness to palpation of the PF. 07/09/23: PF stretching, no c /o pain. STG Duration 3 wks-07/27/23 improved . Senior Living Goal (LTG) Improve PF strength of contraction with improved mobility. LTG Duration 6 wks-08/10/23 Three Impairment PF weakness & tenderness with increased frequency of urination Short Term Goal (STG) Bladder retraining to minimize frequency of urination. 07/09/23: Bladder retraining education, HO issued. STG Duration 2 wks-07/13/23 (07/09/23: MET GOAL) Senior Living Goal (LTG) Pt will be educated in PF ex's to minimize and lessen in the future urinary leakage. LTG Duration 12 wks-09/28/23 Two Impairment Diastasis Rectus (DR) with occasional LBP Short Term Goal (STG) Strengthen core with pt able to identify her DR and when she is able to progress core strengthening based on abdominal doming. 07/09/23: Educated in DR protection with transfers using towel. STG Duration 6 wks-08/10/23 [employer] Goal (LTG) Pt will be independent in a core strengthening program to minimize her DR with ability to walk 1-2 miles without LBP. 07/09/23: HEP of TA tightening 4pt and I/S to do supine and sidelye. LTG Duration 12 wks-09/28/23 One Impairment Pt lacks appropriate self care HEP. Short Term Goal (STG) Education in proper methods for transfer (log roll) with coordination of breathing/TA tightening, PF contractions, and vulvar/genital care. 07/09/23: Pt educated in transfer (log roll) and sidelie<>supine, and sit<> stand coordinating breathing/ TA tightening/PF contractions. STG Duration 3 wks-07/27/23 progressed (need ed of vulvar/ genital care) Senior Living Goal (LTG) Pt will be independent with a self care HEP of core (TA)/PF strengthening and hip ROM exercises. 07/09/23: HEP: TA tightening 4pt and I/S to do supine and sidelye. LTG Duration 12 wks-09/28/23 Assessment Summary Assessment Pt is 8 wks pp, with decreased STM at scar, and abdominal discomfort, probably due to core weakness (notable DR). Initially tender PF with PF tightness and weak PF contraction. Today, pt had no c/o PF pain when stretching. She appears to have better contaction/closing at vaginal opening after stretching. Good understanding of Bladder retraining/Urge deference technique, and TA strengthening with use of towel for DR protection. Pt appears to have a 2 day transit time for BM as noted when eating corn. Physical Therapy Plan Frequency and Duration Frequency of Treatment 2x/Week Duration of treatment (weeks) 12 Plan of Care Start Date 06/28/23 Plan of Care End Date 09/28/23 Next Visit Focus/Plan Next Note Type Treatment Note Next Visit Plan NEXT: Add lateral trunk STM for DR closure. Progress TA strengthening for DR closure. Pt education in vulvar/genital care. Assess PF contractions (isolating) Pt education in postural changes due to with recommendations for self corrections Discuss different pads and usage (urine vs menstrual). Manual: PF stretching to reduce pain and monitor for decreasing vaginal gapping. Exer: ?PF stretching or strengthening.
--- NOTE | 2023-07-16 16:09 | PT.OTN ---
Current Diagnoses Muscle weakness (generalized) (07/16/23) Other specified disorders of muscle (07/16/23) Encounter for full-term uncomplicated delivery (07/16/23) Pelvic and perineal pain (07/16/23) Abnormal posture (07/16/23) Physical Therapy Treatment Note PT-OP-A Visit Information Start: 06/26/23 16:51 Freq: Status: Active Protocol: Document 07/16/23 13:47 LRN (Rec: 07/16/23 14:43 LRN [id number]) Out-Patient Physical Therapy Visit Information Visit Information Visit Type Treatment Note Visit Start Time 13:47 Visit Stop Time 14:38 Total Visit Minutes 51 Visit Number 4 Evaluation Information Evaluation Date 06/28/23 Precautions Precautions MD I/S pt to start with body wt squats and slowly build up to lifting. Wgt is 195# PT-OP-B Current Condition Start: 06/26/23 16:51 Freq: Status: Active Protocol: Document 06/28/23 15:01 LRN (Rec: 06/28/23 17:32 LRN [id number]) Current Condition History of Current Condition Onset Date 05/07/23 Current Complaints Diastasis Rectus, and concerned of having a weak PF. History of Current Condition Pt reports being G1,P1. Baby girl was born 05/07/23. Pt reports recently having her 6 wk post check, and is concerned she has a diastasis rectus (DR) and she has occasional low back pain with walking. She states she walks 1-2 miles daily. Her LBP was mostly during but she now has occasional pain that is the same ache as during , with walking , but not nearly as much pain. Pt reports having a vaginal with minor tearing that didn't require stitching. Currently she is not leaking, but she wants to make sure she has ex's to strengthen her PF . She has aches and pain around the scar and hasn't attempted abdominal exercises. Pt reports doing lifting exercises while and noticed a small DR. Pt reports complications post (see developmental history below) that resulted in a scar. Prior Treatments and Tests PT for LBP during that the pt felt didn't seem to help. Developmental History Developmental History Pt's was vaginal but then had vaginal D&C, then 6 hrs later had essential a C -section to stop the bleeding. Lost a lot of blood requiring 4 quarts of blood transfused. Treatment Goals Patient/Caregiver Goals Pt goals: Ex's to help close Diastasis Rectus to decrease LBP with daily walk 1-2 miles. Ex's to prevent urinary leakage. Bladder retraining to minimize frequency of urination. Prior Functional Status Baseline Function- Recreation/Hobbies Ex: Walking, Wgt lifting - bench press, lift, free wgts (3x/week) done throughout . Current Functional Impairments (Reported) Functional Limitations- Recreation/ Ex: Walking & Arm wgt lifting Hobbies . Not ex to engage abdominals . Personal Factors Other Personal Factors That May Effect Pt left the [employer] in January to Therapy/Recovery become a mom. Her spouse is in the [employer] and will be gone for 3 weeks in August of 2023 . Pt will be bringing baby to appointments. PT-OP-C Subjective Start: 06/26/23 16:51 Freq: Status: Active Protocol: Document 07/16/23 13:47 LRN (Rec: 07/16/23 14:43 LRN [id number]) OP-PT Subjective Patient Comments Patient Comments Hasn't noticed issued and hasn 't noticed any change. PT-OP-I Pelvic Floor Start: 06/26/23 16:51 Freq: Status: Active Protocol: Document 07/02/23 12:20 LRN (Rec: 07/02/23 15:03 LRN [id number]) Pelvic Floor Assessment SEMG (uV) Baseline 1.3 Quick Contraction 1.4 10 Second Contraction 1.4 Recruitment Pattern Poor/Slow Relaxation Poor/Slow Holding Poor/Slow Stability of Hold Fair SEMG Stability of Rest Good Comments Pelvic Floor Comments Legs on Bolster QUICK Flicks (SCALE 0-25): 10 reps strength (uV's): avg work 1.4, avg rest 1.5. 20 reps strength (uV's): avg work 1.4, avg rest 1.5. LONG HOLDS (SCALE 0-10): 10 reps strength (uV's): avg work 1.4, avg rest 1.4. 20 reps strength (uV's): avg work 1.4, avg rest 1.4. PT-OP-J Posture/Palpation/Skin Start: 06/26/23 16:51 Freq: Status: Active Protocol: Document 06/28/23 15:01 LRN (Rec: 06/28/23 17:32 LRN [id number]) Posture Evaluation Position Standing Head/C-Spine Posture Forward Head T-Spine Posture Increased Kyphosis L-Spine Posture Increased Lordosis,Shifted Left Scapula Posture (L) Elevated Comments Posture Comments L shoulder and scapula are high, L-spine slight shift to left. Palpation Assessment Location Abdomen Palpation Location Diastasis Rectus Palpation Details Above umbilicus: 1-3 fingerwidths (FW), 2-2 FW, 3-2 FW, 4-1 FW Below umbilicus: 1-3 FW. PT-OP-K Range of Motion Start: 06/26/23 16:51 Freq: Status: Active Protocol: Document 06/28/23 15:01 LRN (Rec: 06/28/23 17:32 LRN [id number]) Lumbar Spine Range of Motion Lumbar Spine Active Degrees Testing Position Standing Flexion 75 Extension 25 Rotation Left 20 Rotation Right 23 Lateral Flexion Left 20 Lateral Flexion Right 20 Comments Trunk AROM: Flexion is 75 deg ?s with 70 deg?s hip flexion, Trunk extension is 25 deg?s with 10 deg?s hip extension Hip Goniometric Range of Motion Hip Right Passive Testing Position Supine Internal Rotation 35 External Rotation 60 Left Passive Testing Position Supine Internal Rotation 25 External Rotation 50 PT-OP-M Strength Start: 06/26/23 16:51 Freq: Status: Active Protocol: Document 06/28/23 15:01 LRN (Rec: 06/28/23 17:32 LRN [id number]) Trunk Strength Trunk Manual Muscle Testing Core Stabilization Pt demonstrates core weakness with rotation during LE MMT. Hand Die Repair/Pinch Strength Hand Dominance Hand Dominance Right Hip Strength Hip Manual Muscle Testing Right Abduction 4+ Good+ Comments Strength is 5/5 except as indicated above. Left Extension (S1) 3+ Fair+ External Rotation 3 Fair Comments Strength is 5/5 except as indicated above. PT-OP-Q Treatments Start: 06/26/23 16:51 Freq: Status: Active Protocol: Document 07/16/23 13:47 LRN (Rec: 07/16/23 14:43 LRN [id number]) Therapeutic Exercises Supine Exercises Vemg PF contractions Supine Exercise Name Vemg PF contractions - Resting , Quick and 5SH contractions. Reps/Minutes 20' Comments Adjusted electrode several time and monitoring of electrode mvmt needed. TA tightening Supine Exercise Name TA tightening Reps/Minutes Hold through 3 breaths x 5 Comments Cuing to not hold breath & relax upper body Sidelying Exercises TA tightening Sidelying Exercise Name TA tightening Side bilateral Reps/Minutes Hold through 3 breaths x 10 Comments Cuing to not hold breath & relax upper body during TA contraction. Manual Therapy Treatment Soft Tissue Mobilization Trunk rotators Body Location Trunk Rotators. Mobilization Type Sustained Pressure Intensity/Depth Moderate Body Position Supine PT-OP-T Assessment and Plan Start: 06/26/23 16:51 Freq: Status: Active Protocol: Document 07/16/23 13:47 LRN (Rec: 07/16/23 14:43 LRN [id number]) Physical Therapy Assessment Goals Four Impairment PF tenderness Short Term Goal (STG) Pt will have minimal areas of tenderness to palpation of the PF. 07/09/23: PF stretching, no c /o pain. STG Duration 3 wks-07/27/23 improved . Lead Neurodiagnostic Technologist Goal (LTG) Improve PF strength of contraction with improved mobility. LTG Duration 6 wks-08/10/23 Three Impairment PF weakness & tenderness with increased frequency of urination Short Term Goal (STG) Bladder retraining to minimize frequency of urination. 07/09/23: Bladder retraining education, HO issued. STG Duration 2 wks-07/13/23 (07/09/23: MET GOAL) Lead Neurodiagnostic Technologist Goal (LTG) Pt will be educated in PF ex's to minimize and lessen in the future urinary leakage. LTG Duration 12 wks-09/28/23 Two Impairment Diastasis Rectus (DR) with occasional LBP Short Term Goal (STG) Strengthen core with pt able to identify her DR and when she is able to progress core strengthening based on abdominal doming. 07/09/23: Educated in DR protection with transfers using towel. STG Duration 6 wks-08/10/23 Half-Way Goal (LTG) Pt will be independent in a core strengthening program to minimize her DR with ability to walk 1-2 miles without LBP. 07/09/23: HEP of TA tightening 4pt and I/S to do supine and sidelye. LTG Duration 12 wks-02/02/24 One Impairment Pt lacks appropriate self care HEP. Short Term Goal (STG) Education in proper methods for transfer (log roll) with coordination of breathing/TA tightening, PF contractions, and vulvar/genital care. 07/09/23: Pt educated in transfer (log roll) and sidelie<>supine, and sit<> stand coordinating breathing/ TA tightening/PF contractions. STG Duration 3 wks-07/27/23 progressed (need ed of vulvar/ genital care) Lead Neurodiagnostic Technologist Goal (LTG) Pt will be independent with a self care HEP of core (TA)/PF strengthening and hip ROM exercises. 07/09/23: HEP: TA tightening 4pt and I/S to do supine and sidelye. 07/16/23: I/S pt in self trunk rotation stretching (for DR). LTG Duration 12 wks-09/28/23 progressing 07/16/23 Assessment Summary Assessment Pt is ~8 wks post- of vaginal but due to bleeding, had for D& C. Pt attending for protection for worsening in future with scar pain, DR, LBP, core & L hip weakness/ROM. No significant symptoms; therefore no change in symptoms. Hasn't noticed any PF pain. Per Vemg biofeedback the pt has a peak in contraction upon full relaxation, demonstrating high mobility of electrode with drawing in and dropping out of electrode during contraction and relaxation. Poor PF holding strength on initiation of contraction; therefore pt needs to work up to slow contraction and hold. Physical Therapy Plan Frequency and Duration Frequency of Treatment 2x/Week Duration of treatment (weeks) 12 Plan of Care Start Date 06/28/23 Plan of Care End Date 09/28/23 Next Visit Focus/Plan Next Note Type Treatment Note Next Visit Plan NEXT: Progress TA strengthening for DR closure. STM to reduce scar restriction/pain. Education in vulvar/genital care (STG 1) . Pt education in postural changes due to with recommendations for self corrections Discuss different pads and usage (urine vs menstrual). Manual: PF stretching to reduce pain and monitor for decreasing vaginal gapping. Exer: ?PF stretching or strengthening. Assess PF contractions ( isolating)
--- NOTE | 2023-07-30 16:11 | PT.OTN ---
Current Diagnoses Muscle weakness (generalized) (07/30/23) Other specified disorders of muscle (07/30/23) Encounter for full-term uncomplicated delivery (07/30/23) Pelvic and perineal pain (07/30/23) Abnormal posture (07/30/23) Physical Therapy Treatment Note PT-OP-A Visit Information Start: 06/26/23 16:51 Freq: Status: Active Protocol: Document 07/30/23 13:04 LRN (Rec: 07/30/23 13:48 LRN [id number]) Out-Patient Physical Therapy Visit Information Visit Information Visit Type Treatment Note Visit Start Time 13:04 Visit Stop Time 13:45 Total Visit Minutes 41 Visit Number 5 Evaluation Information Evaluation Date 06/28/23 Precautions Precautions MD I/S pt to start with body wt squats and slowly build up to lifting. Wgt is 195# PT-OP-B Current Condition Start: 06/26/23 16:51 Freq: Status: Active Protocol: Document 06/28/23 15:01 LRN (Rec: 06/28/23 17:32 LRN [id number]) Current Condition History of Current Condition Onset Date 05/07/23 Current Complaints Diastasis Rectus, and concerned of having a weak PF. History of Current Condition Pt reports being G1,P1. Baby girl was born 05/07/23. Pt reports recently having her 6 wk post check, and is concerned she has a diastasis rectus (DR) and she has occasional low back pain with walking. She states she walks 1-2 miles daily. Her LBP was mostly during but she now has occasional pain that is the same ache as during , with walking , but not nearly as much pain. Pt reports having a vaginal with minor tearing that didn't require stitching. Currently she is not leaking, but she wants to make sure she has ex's to strengthen her PF . She has aches and pain around the scar and hasn't attempted abdominal exercises. Pt reports doing lifting exercises while and noticed a small DR. Pt reports complications post (see developmental history below) that resulted in a scar. Prior Treatments and Tests PT for LBP during that the pt felt didn't seem to help. Developmental History Developmental History Pt's was vaginal but then had vaginal D&C, then 6 hrs later had essential a C -section to stop the bleeding. Lost a lot of blood requiring 4 quarts of blood transfused. Treatment Goals Patient/Caregiver Goals Pt goals: Ex's to help close Diastasis Rectus to decrease LBP with daily walk 1-2 miles. Ex's to prevent urinary leakage. Bladder retraining to minimize frequency of urination. Prior Functional Status Baseline Function- Recreation/Hobbies Ex: Walking, Wgt lifting - bench press, lift, free wgts (3x/week) done throughout . Current Functional Impairments (Reported) Functional Limitations- Recreation/ Ex: Walking & Arm wgt lifting Hobbies . Not ex to engage abdominals . Personal Factors Other Personal Factors That May Effect Pt left the [employer] in January to Therapy/Recovery become a mom. Her spouse is in the [employer] and will be gone for 3 weeks in August of 2023 . Pt will be bringing baby to appointments. PT-OP-C Subjective Start: 06/26/23 16:51 Freq: Status: Active Protocol: Document 07/30/23 13:04 LRN (Rec: 07/30/23 13:48 LRN [id number]) OP-PT Subjective Patient Comments Patient Comments No change. L side of lower abdominal scar is more discomfort. Doing lower abdominal stretching has helped with abdominal pain. No urinary leakage. Doesn't feel she is urinating as much but hasn't been drinking enough. PT-OP-I Pelvic Floor Start: 06/26/23 16:51 Freq: Status: Active Protocol: Document 07/02/23 12:20 LRN (Rec: 07/02/23 15:03 LRN [id number]) Pelvic Floor Assessment SEMG (uV) Baseline 1.3 Quick Contraction 1.4 10 Second Contraction 1.4 Recruitment Pattern Poor/Slow Relaxation Poor/Slow Holding Poor/Slow Stability of Hold Fair SEMG Stability of Rest Good Comments Pelvic Floor Comments Legs on Bolster QUICK Flicks (SCALE 0-25): 10 reps strength (uV's): avg work 1.4, avg rest 1.5. 20 reps strength (uV's): avg work 1.4, avg rest 1.5. LONG HOLDS (SCALE 0-10): 10 reps strength (uV's): avg work 1.4, avg rest 1.4. 20 reps strength (uV's): avg work 1.4, avg rest 1.4. PT-OP-J Posture/Palpation/Skin Start: 06/26/23 16:51 Freq: Status: Active Protocol: Document 06/28/23 15:01 LRN (Rec: 06/28/23 17:32 LRN [id number]) Posture Evaluation Position Standing Head/C-Spine Posture Forward Head T-Spine Posture Increased Kyphosis L-Spine Posture Increased Lordosis,Shifted Left Scapula Posture (L) Elevated Comments Posture Comments L shoulder and scapula are high, L-spine slight shift to left. Palpation Assessment Location Abdomen Palpation Location Diastasis Rectus Palpation Details Above umbilicus: 1-3 fingerwidths (FW), 2-2 FW, 3-2 FW, 4-1 FW Below umbilicus: 1-3 FW. PT-OP-K Range of Motion Start: 06/26/23 16:51 Freq: Status: Active Protocol: Document 06/28/23 15:01 LRN (Rec: 06/28/23 17:32 LRN [id number]) Lumbar Spine Range of Motion Lumbar Spine Active Degrees Testing Position Standing Flexion 75 Extension 25 Rotation Left 20 Rotation Right 23 Lateral Flexion Left 20 Lateral Flexion Right 20 Comments Trunk AROM: Flexion is 75 deg ?s with 70 deg?s hip flexion, Trunk extension is 25 deg?s with 10 deg?s hip extension Hip Goniometric Range of Motion Hip Right Passive Testing Position Supine Internal Rotation 35 External Rotation 60 Left Passive Testing Position Supine Internal Rotation 25 External Rotation 50 PT-OP-M Strength Start: 06/26/23 16:51 Freq: Status: Active Protocol: Document 06/28/23 15:01 LRN (Rec: 06/28/23 17:32 LRN [id number]) Trunk Strength Trunk Manual Muscle Testing Core Stabilization Pt demonstrates core weakness with rotation during LE MMT. Hand Infusion Pharmacist/Pinch Strength Hand Dominance Hand Dominance Right Hip Strength Hip Manual Muscle Testing Right Abduction 4+ Good+ Comments Strength is 5/5 except as indicated above. Left Extension (S1) 3+ Fair+ External Rotation 3 Fair Comments Strength is 5/5 except as indicated above. PT-OP-Q Treatments Start: 06/26/23 16:51 Freq: Status: Active Protocol: Document 07/30/23 13:04 LRN (Rec: 07/30/23 13:48 LRN [id number]) Therapeutic Exercises Supine Exercises TA tightening Supine Exercise Name TA tightening Reps/Minutes Hold through 3 breaths Comments Cuing to breath thru chest, needing relaxation of upper body on exhale. Sidelying Exercises TA tightening Sidelying Exercise Name TA tightening Side bilateral Reps/Minutes Hold through 3 breaths x 10 Comments Much cuing to move at chest and hold TA during breath. Manual Therapy Treatment Soft Tissue Mobilization Scar Mob Body Location Lower abdomen scar mobs Mobilization Type Strumming Intensity/Depth Moderate Body Position Hooklying Self-Care/Home Management Treatment Education Caregiver Education Education in vulvar/genital care. Discussed when to start biking and different bike seats Activities Self-Care/Home Management Activities Handout issued on vulvar/ genital care. PT-OP-T Assessment and Plan Start: 06/26/23 16:51 Freq: Status: Active Protocol: Document 07/30/23 13:04 LRN (Rec: 07/30/23 13:48 LRN [id number]) Physical Therapy Assessment Goals Four Impairment PF tenderness Short Term Goal (STG) Pt will have minimal areas of tenderness to palpation of the PF. 07/09/23: PF stretching, no c /o pain. 07/30/23: HO's for vulvar/ genital care. STG Duration 3 wks-07/27/23 progressed . Fpc Goal (LTG) Improve PF strength of contraction with improved mobility. LTG Duration 6 wks-08/10/23 Three Impairment PF weakness & tenderness with increased frequency of urination Short Term Goal (STG) Bladder retraining to minimize frequency of urination. 07/09/23: Bladder retraining education HO issued. STG Duration 2 wks-07/13/23 (07/09/23: MET GOAL) Elementary School Tutor Goal (LTG) Pt will be educated in PF ex's to minimize and lessen in the future urinary leakage. LTG Duration 12 wks-09/28/23 Two Impairment Diastasis Rectus (DR) with occasional LBP Short Term Goal (STG) Strengthen core with pt able to identify her DR and when she is able to progress core strengthening based on abdominal doming. 07/09/23: Educated in DR protection with transfers using towel. STG Duration 6 wks-08/10/23 Elementary School Tutor Goal (LTG) Pt will be independent in a core strengthening program to minimize her DR with ability to walk 1-2 miles without LBP. 07/09/23: HEP of TA tightening 4pt and I/S to do supine and sidelye. LTG Duration 12 wks-09/28/23 One Impairment Pt lacks appropriate self care HEP. Short Term Goal (STG) Education in proper methods for transfer (log roll) with coordination of breathing/TA tightening, PF contractions, and vulvar/genital care. 07/09/23: Pt educated in transfer (log roll) and sidelie<>supine, and sit<> stand coordinating breathing/ TA tightening/PF contractions. 07/30/23: Education in vulvar /genital care. STG Duration 3 wks-07/27/23 (07/30/23: MET GOAL) Elementary School Tutor Goal (LTG) Pt will be independent with a self care HEP of core (TA)/PF strengthening and hip ROM exercises. 07/09/23: HEP: TA tightening 4pt and I/S to do supine and sidelye. 07/16/23: I/S pt in self trunk rotation stretching (for DR). LTG Duration 12 wks-09/28/23 progressing 07/16/23 Assessment Summary Assessment Pt is ~8 wks post- of vaginal but due to bleeding, had for D& C. Pt had difficulty with holding TA while breathing; therefore needed much cuing/ training, to chest and abdomen , to hold TA contraction during breathing. Physical Therapy Plan Frequency and Duration Frequency of Treatment 2x/Week Duration of treatment (weeks) 12 Plan of Care Start Date 06/28/23 Plan of Care End Date 09/28/23 Next Visit Focus/Plan Next Note Type Treatment Note Next Visit Plan Next: Pt education in postural changes due to with recommendations for self corrections Discuss different pads and usage (urine vs menstrual). Progress TA strengthening for DR closure. STM to reduce scar restriction/pain. Manual: PF stretching to reduce pain and monitor for decreasing vaginal gapping. Exer: ?PF stretching or strengthening. Assess PF contractions ( isolating)
--- NOTE | 2023-08-06 16:07 | PT.OTN ---
Current Diagnoses Muscle weakness (generalized) (08/06/23) Other specified disorders of muscle (08/06/23) Encounter for full-term uncomplicated delivery (08/06/23) Pelvic and perineal pain (08/06/23) Abnormal posture (08/06/23) Physical Therapy Treatment Note PT-OP-A Visit Information Start: 06/26/23 16:51 Freq: Status: Active Protocol: Document 08/06/23 13:03 LRN (Rec: 08/06/23 13:50 LRN [id number]) Out-Patient Physical Therapy Visit Information Visit Information Visit Type Treatment Note Visit Start Time 13:04 Visit Stop Time 13:42 Total Visit Minutes 38 Visit Number 6 Evaluation Information Evaluation Date 06/28/23 Precautions Precautions MD I/S pt to start with body wt squats and slowly build up to lifting. Wgt is 195# PT-OP-B Current Condition Start: 06/26/23 16:51 Freq: Status: Active Protocol: Document 06/28/23 15:01 LRN (Rec: 06/28/23 17:32 LRN [id number]) Current Condition History of Current Condition Onset Date 05/07/23 Current Complaints Diastasis Rectus, and concerned of having a weak PF. History of Current Condition Pt reports being G1,P1. Baby girl was born 05/07/23. Pt reports recently having her 6 wk post check, and is concerned she has a diastasis rectus (DR) and she has occasional low back pain with walking. She states she walks 1-2 miles daily. Her LBP was mostly during but she now has occasional pain that is the same ache as during , with walking , but not nearly as much pain. Pt reports having a vaginal with minor tearing that didn't require stitching. Currently she is not leaking, but she wants to make sure she has ex's to strengthen her PF . She has aches and pain around the scar and hasn't attempted abdominal exercises. Pt reports doing lifting exercises while and noticed a small DR. Pt reports complications post (see developmental history below) that resulted in a scar. Prior Treatments and Tests PT for LBP during that the pt felt didn't seem to help. Developmental History Developmental History Pt's was vaginal but then had vaginal D&C, then 6 hrs later had essential a C -section to stop the bleeding. Lost a lot of blood requiring 4 quarts of blood transfused. Treatment Goals Patient/Caregiver Goals Pt goals: Ex's to help close Diastasis Rectus to decrease LBP with daily walk 1-2 miles. Ex's to prevent urinary leakage. Bladder retraining to minimize frequency of urination. Prior Functional Status Baseline Function- Recreation/Hobbies Ex: Walking, Wgt lifting - bench press, lift, free wgts (3x/week) done throughout . Current Functional Impairments (Reported) Functional Limitations- Recreation/ Ex: Walking & Arm wgt lifting Hobbies . Not ex to engage abdominals . Personal Factors Other Personal Factors That May Effect Pt left the [employer] in January to Therapy/Recovery become a mom. Her spouse is in the [employer] and will be gone for 3 weeks in August of 2023 . Pt will be bringing baby to appointments. PT-OP-C Subjective Start: 06/26/23 16:51 Freq: Status: Active Protocol: Document 08/06/23 13:03 LRN (Rec: 08/06/23 13:50 LRN [id number]) OP-PT Subjective Patient Comments Patient Comments Doing better at drinking at night. Working on chest breathing. Scar feels good, less tender on L side after K- tape. PT-OP-I Pelvic Floor Start: 06/26/23 16:51 Freq: Status: Active Protocol: Document 07/02/23 12:20 LRN (Rec: 07/02/23 15:03 LRN [id number]) Pelvic Floor Assessment SEMG (uV) Baseline 1.3 Quick Contraction 1.4 10 Second Contraction 1.4 Recruitment Pattern Poor/Slow Relaxation Poor/Slow Holding Poor/Slow Stability of Hold Fair SEMG Stability of Rest Good Comments Pelvic Floor Comments Legs on Bolster QUICK Flicks (SCALE 0-25): 10 reps strength (uV's): avg work 1.4, avg rest 1.5. 20 reps strength (uV's): avg work 1.4, avg rest 1.5. LONG HOLDS (SCALE 0-10): 10 reps strength (uV's): avg work 1.4, avg rest 1.4. 20 reps strength (uV's): avg work 1.4, avg rest 1.4. PT-OP-J Posture/Palpation/Skin Start: 06/26/23 16:51 Freq: Status: Active Protocol: Document 06/28/23 15:01 LRN (Rec: 06/28/23 17:32 LRN [id number]) Posture Evaluation Position Standing Head/C-Spine Posture Forward Head T-Spine Posture Increased Kyphosis L-Spine Posture Increased Lordosis,Shifted Left Scapula Posture (L) Elevated Comments Posture Comments L shoulder and scapula are high, L-spine slight shift to left. Palpation Assessment Location Abdomen Palpation Location Diastasis Rectus Palpation Details Above umbilicus: 1-3 fingerwidths (FW), 2-2 FW, 3-2 FW, 4-1 FW Below umbilicus: 1-3 FW. PT-OP-K Range of Motion Start: 06/26/23 16:51 Freq: Status: Active Protocol: Document 06/28/23 15:01 LRN (Rec: 06/28/23 17:32 LRN [id number]) Lumbar Spine Range of Motion Lumbar Spine Active Degrees Testing Position Standing Flexion 75 Extension 25 Rotation Left 20 Rotation Right 23 Lateral Flexion Left 20 Lateral Flexion Right 20 Comments Trunk AROM: Flexion is 75 deg ?s with 70 deg?s hip flexion, Trunk extension is 25 deg?s with 10 deg?s hip extension Hip Goniometric Range of Motion Hip Right Passive Testing Position Supine Internal Rotation 35 External Rotation 60 Left Passive Testing Position Supine Internal Rotation 25 External Rotation 50 PT-OP-M Strength Start: 06/26/23 16:51 Freq: Status: Active Protocol: Document 06/28/23 15:01 LRN (Rec: 06/28/23 17:32 LRN [id number]) Trunk Strength Trunk Manual Muscle Testing Core Stabilization Pt demonstrates core weakness with rotation during LE MMT. Hand Pencils Washer/Pinch Strength Hand Dominance Hand Dominance Right Hip Strength Hip Manual Muscle Testing Right Abduction 4+ Good+ Comments Strength is 5/5 except as indicated above. Left Extension (S1) 3+ Fair+ External Rotation 3 Fair Comments Strength is 5/5 except as indicated above. PT-OP-Q Treatments Start: 06/26/23 16:51 Freq: Status: Active Protocol: Document 08/06/23 13:03 LRN (Rec: 08/06/23 13:50 LRN [id number]) Therapeutic Exercises Supine Exercises Lateral Hip stretch Supine Exercise Name Lateral Hip stretch Side left Reps/Minutes 30 SH x 2. Piriformis stretch Supine Exercise Name L>R Piriformis stretch: Ankle over knee>knee to chest & knee>opp shdr Side bilateral Reps/Minutes 30 SH x 2 Comments Extra time to determine best possible stretch. Sidelying Exercises TA/Reverse Clamshell Sidelying Exercise Name TA/Reverse Clamshell/breath Reps/Minutes 15x Bilaterally TA/Clamshell Sidelying Exercise Name TA/Clamshell/breath Side bilateral Reps/Minutes 30x bilaterally TA tightening Sidelying Exercise Name TA tightening Side bilateral Reps/Minutes Hold through 3 breaths Comments Much cuing to move at chest and hold TA during breath. Sitting Exercises Trunk Rot Sitting Exercise Name Trunk Rot Side bilateral Equipment Used Lev 2 TB Reps/Minutes 10x Comments Extra time taken for training and max tolerated resistance determination Manual Therapy Treatment Soft Tissue Mobilization Scar Mob Body Location Lower abdominal scar mob Mobilization Type Rolling,Sustained Pressure Intensity/Depth Moderate Body Position Hooklying Taping K-tape Body Location Lower abdominal scar Treatment Focus Increase mobility Type of Tape Kinesio Tape Skin Inspection Good Comments Pt I/S in safe and proper removal of K-tape in 5 days. Self-Care/Home Management Treatment Education Patient Education Home Exercise Program Activities Self-Care/Home Management Activities Issued & reviewed HEP: TA/ Marching, TA/heel slides. Written I/S for trunk Rot strengthening. PT-OP-T Assessment and Plan Start: 06/26/23 16:51 Freq: Status: Active Protocol: Document 08/06/23 13:03 LRN (Rec: 08/06/23 13:50 LRN [id number]) Physical Therapy Assessment Goals Four Impairment PF tenderness Short Term Goal (STG) Pt will have minimal areas of tenderness to palpation of the PF. 07/09/23: PF stretching, no c /o pain. 07/30/23: HO's for vulvar/ genital care. STG Duration 3 wks-07/27/23 progressed . Group Home Goal (LTG) Improve PF strength of contraction with improved mobility. LTG Duration 6 wks-08/10/23 Three Impairment PF weakness & tenderness with increased frequency of urination Short Term Goal (STG) Bladder retraining to minimize frequency of urination. 07/09/23: Bladder retraining education, HO issued. STG Duration 2 wks-07/13/23 (07/09/23: MET GOAL) Network Security Engineer Goal (LTG) Pt will be educated in PF ex's to minimize and lessen in the future urinary leakage. LTG Duration 12 wks-09/28/23 Two Impairment Diastasis Rectus (DR) with occasional LBP Short Term Goal (STG) Strengthen core with pt able to identify her DR and when she is able to progress core strengthening based on abdominal doming. 07/09/23: Educated in DR protection with transfers using towel. STG Duration 6 wks-08/10/23 Network Security Engineer Goal (LTG) Pt will be independent in a core strengthening program to minimize her DR with ability to walk 1-2 miles without LBP. 07/09/23: HEP of TA tightening 4pt and I/S to do supine and sidelye. 08/06/23: HEP: TA/marching, TA/heel slides LTG Duration 12 wks-09/28/23 progressing 08/06/23 One Impairment Pt lacks appropriate self care HEP. Short Term Goal (STG) Education in proper methods for transfer (log roll) with coordination of breathing/TA tightening, PF contractions, and vulvar/genital care. 07/09/23: Pt educated in transfer (log roll) and sidelie<>supine, and sit<> stand coordinating breathing/ TA tightening/PF contractions. 07/30/23: Education in vulvar /genital care. STG Duration 3 wks-07/27/23 (07/30/23: MET GOAL) Network Security Engineer Goal (LTG) Pt will be independent with a self care HEP of core (TA)/PF strengthening and hip ROM exercises. 07/09/23: HEP: TA tightening 4pt and I/S to do supine and sidelye. 07/16/23: I/S pt in self trunk rotation stretching (for DR). 08/06/23: HEP: TA/marching, TA/heel slides LTG Duration 12 wks-09/28/23 progressing 08/06/23 Assessment Summary Assessment Pt had to push to do clamshell /reverse clamshell and TA to ex due to R hip weakness. Pt thinks R hip is tighter, but L hip was found to be weaker and tighter. Improved Scar tissue mobility with decreased tenderness with palpation/mob , except with superior glide. Physical Therapy Plan Frequency and Duration Frequency of Treatment 2x/Week Duration of treatment (weeks) 12 Plan of Care Start Date 06/28/23 Plan of Care End Date 09/28/23 Next Visit Focus/Plan Next Note Type Treatment Note Next Visit Plan Next: Pt education in postural changes due to with recommendations for self corrections. Check scar mob for need of K-tape, and Discuss different pads and usage (urine vs menstrual). Progress TA strengthening for DR closure. Manual: PF stretching to reduce pain and monitor for decreasing vaginal gapping. Exer: ?PF stretching or strengthening. Assess PF contractions ( isolating)
--- NOTE | 2023-09-07 12:31 | PT.OTN ---
Current Diagnoses Muscle weakness (generalized) (09/07/23) Other specified disorders of muscle (09/07/23) Encounter for full-term uncomplicated delivery (09/07/23) Pelvic and perineal pain (09/07/23) Abnormal posture (09/07/23) Physical Therapy Treatment Note PT-OP-A Visit Information Start: 06/26/23 16:51 Freq: Status: Active Protocol: Document 09/07/23 11:23 LRN (Rec: 09/07/23 12:30 LRN [id number]) Out-Patient Physical Therapy Visit Information Visit Information Visit Type Treatment Note Visit Start Time 11:22 Visit Stop Time 12:04 Total Visit Minutes 42 Visit Number 8 Evaluation Information Evaluation Date 06/28/23 Precautions Precautions MD I/S pt to start with body wt squats and slowly build up to lifting. Wgt is 195# PT-OP-B Current Condition Start: 06/26/23 16:51 Freq: Status: Active Protocol: Document 06/28/23 15:01 LRN (Rec: 06/28/23 17:32 LRN [id number]) Current Condition History of Current Condition Onset Date 05/07/23 Current Complaints Diastasis Rectus, and concerned of having a weak PF. History of Current Condition Pt reports being G1,P1. Baby girl was born 05/07/23. Pt reports recently having her 6 wk post check, and is concerned she has a diastasis rectus (DR) and she has occasional low back pain with walking. She states she walks 1-2 miles daily. Her LBP was mostly during but she now has occasional pain that is the same ache as during , with walking , but not nearly as much pain. Pt reports having a vaginal with minor tearing that didn't require stitching. Currently she is not leaking, but she wants to make sure she has ex's to strengthen her PF . She has aches and pain around the scar and hasn't attempted abdominal exercises. Pt reports doing lifting exercises while and noticed a small DR. Pt reports complications post (see developmental history below) that resulted in a scar. Prior Treatments and Tests PT for LBP during that the pt felt didn't seem to help. Developmental History Developmental History Pt's was vaginal but then had vaginal D&C, then 6 hrs later had essential a C -section to stop the bleeding. Lost a lot of blood requiring 4 quarts of blood transfused. Treatment Goals Patient/Caregiver Goals Pt goals: Ex's to help close Diastasis Rectus to decrease LBP with daily walk 1-2 miles. Ex's to prevent urinary leakage. Bladder retraining to minimize frequency of urination. Prior Functional Status Baseline Function- Recreation/Hobbies Ex: Walking, Wgt lifting - bench press, lift, free wgts (3x/week) done throughout . Current Functional Impairments (Reported) Functional Limitations- Recreation/ Ex: Walking & Arm wgt lifting Hobbies . Not ex to engage abdominals . Personal Factors Other Personal Factors That May Effect Pt left the [employer] in January to Therapy/Recovery become a mom. Her spouse is in the [employer] and will be gone for 3 weeks in August of 2023 . Pt will be bringing baby to appointments. PT-OP-C Subjective Start: 06/26/23 16:51 Freq: Status: Active Protocol: Document 09/07/23 11:23 LRN (Rec: 09/07/23 12:30 LRN [id number]) OP-PT Subjective Patient Comments Patient Comments No changes. This week ILU massages and BM's daily. Still not urinary leakage. PT-OP-I Pelvic Floor Start: 06/26/23 16:51 Freq: Status: Active Protocol: Document 07/02/23 12:20 LRN (Rec: 07/02/23 15:03 LRN [id number]) Pelvic Floor Assessment SEMG (uV) Baseline 1.3 Quick Contraction 1.4 10 Second Contraction 1.4 Recruitment Pattern Poor/Slow Relaxation Poor/Slow Holding Poor/Slow Stability of Hold Fair SEMG Stability of Rest Good Comments Pelvic Floor Comments Legs on Bolster QUICK Flicks (SCALE 0-25): 10 reps strength (uV's): avg work 1.4, avg rest 1.5. 20 reps strength (uV's): avg work 1.4, avg rest 1.5. LONG HOLDS (SCALE 0-10): 10 reps strength (uV's): avg work 1.4, avg rest 1.4. 20 reps strength (uV's): avg work 1.4, avg rest 1.4. PT-OP-J Posture/Palpation/Skin Start: 06/26/23 16:51 Freq: Status: Active Protocol: Document 06/28/23 15:01 LRN (Rec: 06/28/23 17:32 LRN [id number]) Posture Evaluation Position Standing Head/C-Spine Posture Forward Head T-Spine Posture Increased Kyphosis L-Spine Posture Increased Lordosis,Shifted Left Scapula Posture (L) Elevated Comments Posture Comments L shoulder and scapula are high, L-spine slight shift to left. Palpation Assessment Location Abdomen Palpation Location Diastasis Rectus Palpation Details Above umbilicus: 1-3 fingerwidths (FW), 2-2 FW, 3-2 FW, 4-1 FW Below umbilicus: 1-3 FW. PT-OP-K Range of Motion Start: 06/26/23 16:51 Freq: Status: Active Protocol: Document 06/28/23 15:01 LRN (Rec: 06/28/23 17:32 LRN [id number]) Lumbar Spine Range of Motion Lumbar Spine Active Degrees Testing Position Standing Flexion 75 Extension 25 Rotation Left 20 Rotation Right 23 Lateral Flexion Left 20 Lateral Flexion Right 20 Comments Trunk AROM: Flexion is 75 deg ?s with 70 deg?s hip flexion, Trunk extension is 25 deg?s with 10 deg?s hip extension Hip Goniometric Range of Motion Hip Right Passive Testing Position Supine Internal Rotation 35 External Rotation 60 Left Passive Testing Position Supine Internal Rotation 25 External Rotation 50 PT-OP-M Strength Start: 06/26/23 16:51 Freq: Status: Active Protocol: Document 06/28/23 15:01 LRN (Rec: 06/28/23 17:32 LRN [id number]) Trunk Strength Trunk Manual Muscle Testing Core Stabilization Pt demonstrates core weakness with rotation during LE MMT. Hand Wood Turning Lathe Operator/Pinch Strength Hand Dominance Hand Dominance Right Hip Strength Hip Manual Muscle Testing Right Abduction 4+ Good+ Comments Strength is 5/5 except as indicated above. Left Extension (S1) 3+ Fair+ External Rotation 3 Fair Comments Strength is 5/5 except as indicated above. PT-OP-Q Treatments Start: 06/26/23 16:51 Freq: Status: Active Protocol: Document 09/07/23 11:23 LRN (Rec: 09/07/23 12:30 LRN [id number]) Therapeutic Exercises Supine Exercises TA hands/knees push Supine Exercise Name TA hands/knees push Reps/Minutes 3' Trunk rot/feet on wall Supine Exercise Name Trunk rot/feet on wall, arms to R>L Side bilateral Reps/Minutes 8' Comments manual stretch to R TA with L knee roll Lateral Hip stretch Supine Exercise Name L>R Lateral Hip stretch Side bilateral Reps/Minutes 30 SH x 2. Piriformis stretch Supine Exercise Name L>R Piriformis stretch: Ankle over knee>knee to chest & knee>opp shdr Side bilateral Reps/Minutes 30 SH x 2 Comments Extra time to determine best possible stretch. Sidelying Exercises Side Plank Sidelying Exercise Name Side Plank over wedge. Side bilateral Reps/Minutes 2' Comments Extra time for positioning. Deferred due to bulging of abdomen, mika. TA tightening Sidelying Exercise Name L sidelie TA tightening Side left Reps/Minutes Hold through 3 breaths, 10x Comments Much cuing to move at chest and hold TA during breath. Standing Exercises Gastocneumius stretch Standing Exercise Name Gastrocnemius stretch Side bilateral Reps/Minutes 30 SH x 2 Comments Pt familiar with stretch; therefore reviewed. Iliopsoas stretch Standing Exercise Name Ilipsoas stretch Side bilateral Reps/Minutes 30 SH x 2 Comments Cued for toes forward and posterior pelvic tilt. Other Exercises Trunk Rot Other Exercise Name Trunk Rot Side bilateral Reps/Minutes 15x 2 Comments Cued to keep hands into sides, trunk rot w/pelvis stable. Paloff Press Other Exercise Name Paloff press Side bilateral Reps/Minutes 15x Comments Cued for PPT and TA tight Wag the Tail Other Exercise Name Wag the Tail stretch Side bilateral Reps/Minutes 3' Rock Backs Other Exercise Name Rock back onto heels for LB stretch Reps/Minutes 2' Hands/knees TA Other Exercise Name Hands/knees TA & mid T/S ext. Switched to forearms/knees/TA Reps/Minutes Hold through 3 breaths x 10 Comments Cuing to not hold breath & relax upper body Manual Therapy Treatment Taping K-tape Body Location Lower abdominal scar Treatment Focus Increase mobility Type of Tape Kinesio Tape Skin Inspection Good Comments Pt I/S in safe and proper removal of K-tape in 5 days. Self-Care/Home Management Treatment Activities Self-Care/Home Management Activities Issued & reviewed HEP: Feet on wall: Hands/knees push & trunk rot. PT-OP-T Assessment and Plan Start: 06/26/23 16:51 Freq: Status: Active Protocol: Document 01/12/24 11:23 LRN (Rec: 09/07/23 12:30 LRN [id number]) Physical Therapy Assessment Goals Four Impairment PF tenderness Short Term Goal (STG) Pt will have minimal areas of tenderness to palpation of the PF. 07/09/23: PF stretching, no c /o pain. 07/30/23: HO's for vulvar/ genital care. 08/31/23: No areas of tenderness of PF STG Duration 3 wks-07/27/23 (08/31/23: MET GOAL) Family Medicine Resident Goal (LTG) Improve PF strength of contraction with improved mobility. LTG Duration 6 wks-08/10/23 Three Impairment PF weakness & tenderness with increased frequency of urination Short Term Goal (STG) Bladder retraining to minimize frequency of urination. 07/09/23: Bladder retraining education, HO issued. STG Duration 2 wks-07/13/23 (07/09/23: MET GOAL) Family Medicine Resident Goal (LTG) Pt will be educated in PF ex's to minimize and lessen in the future urinary leakage. 08/31/23: HEP: Kegels LTG Duration 12 wks-09/28/23 (08/31/23: MET GOAL) Two Impairment Diastasis Rectus (DR) with occasional LBP Short Term Goal (STG) Strengthen core with pt able to identify her DR and when she is able to progress core strengthening based on abdominal doming. 07/09/23: Educated in DR protection with transfers using towel. 09/07/23: Progressed TA ex hands/knee push and feet on wall trunk rot. Bulging present with lateral planks. STG Duration 6 wks-08/10/23 progressed 08/18 Alf Goal (LTG) Pt will be independent in a core strengthening program to minimize her DR with ability to walk 1-2 miles without LBP. 07/09/23: HEP of TA tightening 4pt and I/S to do supine and sidelye. 08/06/23: HEP: TA/marching, TA/heel slides 08/31/23: Walking 1.2-2 miles without back pain. LTG Duration 12 wks-09/28/23 progressing 08/06/23 One Impairment Pt lacks appropriate self care HEP. Short Term Goal (STG) Education in proper methods for transfer (log roll) with coordination of breathing/TA tightening, PF contractions, and vulvar/genital care. 07/09/23: Pt educated in transfer (log roll) and sidelie<>supine, and sit<> stand coordinating breathing/ TA tightening/PF contractions. 07/30/23: Education in vulvar /genital care. STG Duration 3 wks-07/27/23 (07/30/23: MET GOAL) Family Medicine Resident Goal (LTG) Pt will be independent with a self care HEP of core (TA)/PF strengthening and hip ROM exercises. 07/09/23: HEP: TA tightening 4pt and I/S to do supine and sidelye. 07/16/23: I/S pt in self trunk rotation stretching (for DR). 08/06/23: HEP: TA/marching, TA/heel slides. 09/07/23: HEP: Hands/knees push, Sup trunk rot (R trunk rot w/knee roll L>R). LTG Duration 12 wks-09/28/23 progressing 09/07/22 Assessment Summary Assessment Pt is ~15 wks post- of vaginal but due to bleeding, had for D& C. Tight scar and weak R TA as felt with TA/L sidelie. Bulge of abdomen with sup trunk rot unless cued . Pt not ready for side plank, gets abdominal bulging. Lower tolerance to hands/knees vs forearms/knees exercise. Physical Therapy Plan Frequency and Duration Frequency of Treatment 2x/Week Duration of treatment (weeks) 12 Plan of Care Start Date 06/28/23 Plan of Care End Date 09/28/23 Next Visit Focus/Plan Next Note Type Treatment Note Next Visit Plan Next: Discuss different pads and usage (urine vs menstrual ). Assess tenderness of PF and strength (Goal #4). Correct related postural changes (kyphosis/fwd head, anterior tilted pelvis) during exer. Focus on Progression of TA strengthening for DR closure. Assess PF contractions in isolation. Manual: PF stretching if needed to decrease vaginal gapping.
--- NOTE | 2023-09-28 12:26 | PT.OTN ---
Current Diagnoses Muscle weakness (generalized) (09/28/23) Other specified disorders of muscle (09/28/23) Encounter for full-term uncomplicated delivery (09/28/23) Pelvic and perineal pain (09/28/23) Abnormal posture (09/28/23) Physical Therapy Treatment Note PT-OP-A Visit Information Start: 06/26/23 16:51 Freq: Status: Active Protocol: Document 09/28/23 11:19 LRN (Rec: 09/28/23 12:24 LRN [id number]) Out-Patient Physical Therapy Visit Information Visit Information Visit Type Treatment Note Visit Start Time 11:20 Visit Stop Time 12:04 Visit Number 9 Evaluation Information Evaluation Date 06/28/23 Precautions Precautions MD I/S pt to start with body wt squats and slowly build up to lifting. Wgt is 195# PT-OP-B Current Condition Start: 06/26/23 16:51 Freq: Status: Active Protocol: Document 06/28/23 15:01 LRN (Rec: 06/28/23 17:32 LRN [id number]) Current Condition History of Current Condition Onset Date 05/07/23 Current Complaints Diastasis Rectus, and concerned of having a weak PF. History of Current Condition Pt reports being G1,P1. Baby girl was born 05/07/23. Pt reports recently having her 6 wk post check, and is concerned she has a diastasis rectus (DR) and she has occasional low back pain with walking. She states she walks 1-2 miles daily. Her LBP was mostly during but she now has occasional pain that is the same ache as during , with walking , but not nearly as much pain. Pt reports having a vaginal with minor tearing that didn't require stitching. Currently she is not leaking, but she wants to make sure she has ex's to strengthen her PF . She has aches and pain around the scar and hasn't attempted abdominal exercises. Pt reports doing lifting exercises while and noticed a small DR. Pt reports complications post (see developmental history below) that resulted in a scar. Prior Treatments and Tests PT for LBP during that the pt felt didn't seem to help. Developmental History Developmental History Pt's was vaginal but then had vaginal D&C, then 6 hrs later had essential a C -section to stop the bleeding. Lost a lot of blood requiring 4 quarts of blood transfused. Treatment Goals Patient/Caregiver Goals Pt goals: Ex's to help close Diastasis Rectus to decrease LBP with daily walk 1-2 miles. Ex's to prevent urinary leakage. Bladder retraining to minimize frequency of urination. Prior Functional Status Baseline Function- Recreation/Hobbies Ex: Walking, Wgt lifting - bench press, lift, free wgts (3x/week) done throughout . Current Functional Impairments (Reported) Functional Limitations- Recreation/ Ex: Walking & Arm wgt lifting Hobbies . Not ex to engage abdominals . Personal Factors Other Personal Factors That May Effect Pt left the [employer] in January to Therapy/Recovery become a mom. Her spouse is in the [employer] and will be gone for 3 weeks in August of 2023 . Pt will be bringing baby to appointments. PT-OP-C Subjective Start: 06/26/23 16:51 Freq: Status: Active Protocol: Document 09/28/23 11:19 LRN (Rec: 09/28/23 12:24 LRN [id number]) OP-PT Subjective Patient Comments Patient Comments Has been traveling since the last appt, and hasn't been able to do ex's. BM's good and no leakage on vacation. Patient Questionnaires Pelvic Pain and Urgency/Frequency Patient Symptom Scale Pelvic Pain Score 4 PT-OP-I Pelvic Floor Start: 06/26/23 16:51 Freq: Status: Active Protocol: Document 09/28/23 11:19 LRN (Rec: 09/28/23 12:24 LRN [id number]) Pelvic Floor Assessment Pelvic Clock Pelvic Clock Other No tenderness around the PF clock with superficial and deep muscles. Contraction Ability Voluntary Contraction Moderate Voluntary Relaxation Moderate Manual Muscle Testing Left 3 Manual Muscle Testing Right 3 Manual Muscle Testing Anterior 3 Manual Muscle Testing Posterior 3 Muscle Endurance (Seconds) 10 Number of Quick Contractions In 10 10 Seconds PT-OP-J Posture/Palpation/Skin Start: 06/26/23 16:51 Freq: Status: Active Protocol: Document 09/28/23 11:19 LRN (Rec: 09/28/23 12:24 LRN [id number]) Palpation Assessment Location Abdomen Palpation Location Diastasis Rectus Palpation Details Above umbilicus: 1-2.5 fingerwidths (FW), 2-2 shallow FW, 3-1.5 shallow FW , 4-0.5 FW Below umbilicus: 1-1.5 very shallow FW. PT-OP-K Range of Motion Start: 06/26/23 16:51 Freq: Status: Active Protocol: Document 06/28/23 15:01 LRN (Rec: 06/28/23 17:32 LRN [id number]) Lumbar Spine Range of Motion Lumbar Spine Active Degrees Testing Position Standing Flexion 75 Extension 25 Rotation Left 20 Rotation Right 23 Lateral Flexion Left 20 Lateral Flexion Right 20 Comments Trunk AROM: Flexion is 75 deg ?s with 70 deg?s hip flexion, Trunk extension is 25 deg?s with 10 deg?s hip extension Hip Goniometric Range of Motion Hip Right Passive Testing Position Supine Internal Rotation 35 External Rotation 60 Left Passive Testing Position Supine Internal Rotation 25 External Rotation 50 PT-OP-M Strength Start: 06/26/23 16:51 Freq: Status: Active Protocol: Document 06/28/23 15:01 LRN (Rec: 06/28/23 17:32 LRN [id number]) Trunk Strength Trunk Manual Muscle Testing Core Stabilization Pt demonstrates core weakness with rotation during LE MMT. Hand Diver Helper/Pinch Strength Hand Dominance Hand Dominance Right Hip Strength Hip Manual Muscle Testing Right Abduction 4+ Good+ Comments Strength is 5/5 except as indicated above. Left Extension (S1) 3+ Fair+ External Rotation 3 Fair Comments Strength is 5/5 except as indicated above. PT-OP-Q Treatments Start: 06/26/23 16:51 Freq: Status: Active Protocol: Document 09/28/23 11:19 LRN (Rec: 09/28/23 12:24 LRN [id number]) Therapeutic Exercises Supine Exercises Trunk rot/feet on wall Supine Exercise Name Trunk rot/feet on wall, arms to R>L Side bilateral Resistance 0, 1#, 2# Reps/Minutes 15x each direction for each wgt. Comments manual stretch to R TA with L knee roll, extra time for upper TA trng Other Exercises 4 pt TA ex Other Exercise Name 4 pt: Knee to elbow & knee to opp elbow Side bilateral Reps/Minutes 10x each Comments Extra time taken to keep TA tight and in neutral, no doming Trunk Rot Other Exercise Name Trunk Rot - drawing in of ribs and exhale on exertion Side bilateral Resistance L3 TB Reps/Minutes 15x 2 Comments Cued to keep hands into sides, trunk rot w/pelvis stable. Paloff Press Other Exercise Name Paloff press -indep stance & back against standing mirror Side bilateral Reps/Minutes 15x Comments Cued for PPT and extra time for Drawing in of ribcage Hands/knees TA Other Exercise Name Hands/knees TA & mid T/S ext. Side bilateral Reps/Minutes 10x each motion Comments Cuing for monitoring ABdominal doming with mirror PT-OP-T Assessment and Plan Start: 06/26/23 16:51 Freq: Status: Active Protocol: Document 09/28/23 11:19 LRN (Rec: 09/28/23 12:24 LRN [id number]) Physical Therapy Assessment Rehab Potential Rehabilitation Potential Excellent Evaluation Complexity Number of Personal Factors/Comorbidities 1-2 Number of Body Systems Impaired 4 or More Clinical Presentation at Evaluation Evolving Impairments Impairments Pain,Posture,ROM,Soft Tissue Mobility,Strength Goals Four Impairment PF tenderness Short Term Goal (STG) Pt will have minimal areas of tenderness to palpation of the PF. 07/09/23: PF stretching, no c /o pain. 07/30/23: HO's for vulvar/ genital care. 08/31/23: No areas of tenderness of PF STG Duration 3 wks-07/27/23 (08/31/23: MET GOAL) Orchid Worker Goal (LTG) Improve PF strength of contraction with improved mobility. 09/28/23: PF strength is 5/5 LTG Duration 6 wks-08/10/23 (09/28/23: MET GOAL) Three Impairment PF weakness & tenderness with increased frequency of urination Short Term Goal (STG) Bladder retraining to minimize frequency of urination. 07/09/23: Bladder retraining education, HO issued. STG Duration 2 wks-07/13/23 (07/09/23: MET GOAL) Residential Goal (LTG) Pt will be educated in PF ex's to minimize and lessen in the future urinary leakage. 08/31/23: HEP: Kegels LTG Duration 12 wks-09/28/23 (08/31/23: MET GOAL) Two Impairment Diastasis Rectus (DR) with occasional LBP Short Term Goal (STG) Strengthen core with pt able to identify her DR and when she is able to progress core strengthening based on abdominal doming. 07/09/23: Educated in DR protection with transfers using towel. 09/07/23: Progressed TA ex hands/knee push and feet on wall trunk rot. Bulging present with lateral planks. 09/28/23: Pt educated in self assessment for DR, and educated in monitoring for abdominal doming with core strengthening. STG Duration 2 more wks-10/12/22 progressed 09/28/22 Residential Goal (LTG) Pt will be independent in a core strengthening program to minimize her DR with ability to walk 1-2 miles without LBP. 07/09/23: HEP of TA tightening 4pt and I/S to do supine and sidelye. 08/06/23: HEP: TA/marching, TA/heel slides 08/31/23: Walking 1.2-2 miles without back pain. 09/28/23: No LBP with walking 1-2 miles, core strengthening program progressing. LTG Duration 3 more wks-10/26/23 Partially met goal 09/28/23 ( needs core program One Impairment Pt lacks appropriate self care HEP. Short Term Goal (STG) Education in proper methods for transfer (log roll) with coordination of breathing/TA tightening, PF contractions, and vulvar/genital care. 07/09/23: Pt educated in transfer (log roll) and sidelie<>supine, and sit<> stand coordinating breathing/ TA tightening/PF contractions. 07/30/23: Education in vulvar /genital care. STG Duration 3 wks-07/27/23 (07/30/23: MET GOAL) Orchid Worker Goal (LTG) Pt will be independent with a self care HEP of core (TA)/PF strengthening and hip ROM exercises. 07/09/23: HEP: TA tightening 4pt and I/S to do supine and sidelye. 07/16/23: I/S pt in self trunk rotation stretching (for DR). 08/06/23: HEP: TA/marching, TA/heel slides. 09/07/23: HEP: Hands/knees push, Sup trunk rot (R trunk rot w/knee roll L>R). 09/28/23: I/S pt in hands/ knees: knee to elbow and knee to opp elbow LTG Duration 3 more wks-10/26/23 progressing Assessment Summary Assessment Pt is ~18 wks post- of vaginal but due to bleeding, had for D& C. Tight scar on L side, but restricted in mobility with supine L knee rolls/R arm swings due to tight and weaker R TA than L ( upper and lower). DR improved , slight open below umbilicus, most opening above but less overall. PUF score decreased from 9 to 4. Pt will benefit from 4 more weeks of physical therapy for further DR closure and placement on a HEP to progress the closure over time. Her PF strength is good and urinary leakage and LBP is resolved. Physical Therapy Plan Frequency and Duration Frequency of Treatment 1x/Week Duration of treatment (weeks) 4 Plan of Care Start Date 09/28/23 Plan of Care End Date 10/26/23 Therapeutic Interventions Therapeutic Interventions Home Exercise Program,Manual Therapy,Neuromuscular Re- education,Self-Care/Home Management,Soft Tissue Mobilization,Therapeutic Exercises Next Visit Focus/Plan Next Note Type Treatment Note Next Visit Plan Discuss different pads and usage (urine vs menstrual). Discuss training to decr nighttime voiding if due to urge vs baby feeding voiding. Correct related postural changes (kyphosis/fwd head, anterior tilted pelvis) during exer. Progress onto HEP of TA strengthening for DR closure. POC: Pt education and ther ex for DR closure and postural corrections.
--- NOTE | 2023-09-28 12:27 | PT.OPPOC ---
Physical, Occupational & Speech Therapy At [facility] Current Diagnoses Muscle weakness (generalized) (09/28/23) Other specified disorders of muscle (09/28/23) Encounter for full-term uncomplicated delivery (09/28/23) Pelvic and perineal pain (09/28/23) Abnormal posture (09/28/23) Visit Care Team Role Provider Type ROLANDA Clayton Family Provider Non-Staff Primary Care Provider Specialty: Nursing Address: [address] [place] [address], [address] Phone: Email: Cydney Martinez MD Attending Provider Physician Referring Provider Specialty: Family Practice Address: [address] [place] [address] [place], [address] Email: [email or web address] Plan Of Care PT-OP-T Assessment and Plan Start: 06/26/23 16:51 Freq: Status: Active Protocol: Document 09/28/23 11:19 LRN (Rec: 09/28/23 12:24 LRN [id number]) Physical Therapy Assessment Rehab Potential Rehabilitation Potential Excellent Evaluation Complexity Number of Personal Factors/Comorbidities 1-2 Number of Body Systems Impaired 4 or More Clinical Presentation at Evaluation Evolving Impairments Impairments Pain,Posture,ROM,Soft Tissue Mobility,Strength Goals Four Impairment PF tenderness Short Term Goal (STG) Pt will have minimal areas of tenderness to palpation of the PF. 07/09/23: PF stretching, no c /o pain. 07/30/23: HO's for vulvar/ genital care. 08/31/23: No areas of tenderness of PF STG Duration 3 wks-07/27/23 (08/31/23: MET GOAL) Half-Way Goal (LTG) Improve PF strength of contraction with improved mobility. 09/28/23: PF strength is 5/5 LTG Duration 6 wks-08/10/23 (09/28/23: MET GOAL) Three Impairment PF weakness & tenderness with increased frequency of urination Short Term Goal (STG) Bladder retraining to minimize frequency of urination. 07/09/23: Bladder retraining education, HO issued. STG Duration 2 wks-07/13/23 (07/09/23: MET GOAL) Sas Programmer Remote Goal (LTG) Pt will be educated in PF ex's to minimize and lessen in the future urinary leakage. 08/31/23: HEP: Kegels LTG Duration 12 wks-09/28/23 (08/31/23: MET GOAL) Two Impairment Diastasis Rectus (DR) with occasional LBP Short Term Goal (STG) Strengthen core with pt able to identify her DR and when she is able to progress core strengthening based on abdominal doming. 07/09/23: Educated in DR protection with transfers using towel. 09/07/23: Progressed TA ex hands/knee push and feet on wall trunk rot. Bulging present with lateral planks. 09/28/23: Pt educated in self assessment for DR, and educated in monitoring for abdominal doming with core strengthening. STG Duration 2 more wks-10/12/22 progressed 09/28/22 Half-Way Goal (LTG) Pt will be independent in a core strengthening program to minimize her DR with ability to walk 1-2 miles without LBP. 07/09/23: HEP of TA tightening 4pt and I/S to do supine and sidelye. 08/06/23: HEP: TA/marching, TA/heel slides 08/31/23: Walking 1.2-2 miles without back pain. 09/28/23: No LBP with walking 1-2 miles, core strengthening program progressing. LTG Duration 3 more wks-10/26/23 Partially met goal 09/28/23 ( needs core program One Impairment Pt lacks appropriate self care HEP. Short Term Goal (STG) Education in proper methods for transfer (log roll) with coordination of breathing/TA tightening, PF contractions, and vulvar/genital care. 07/09/23: Pt educated in transfer (log roll) and sidelie<>supine, and sit<> stand coordinating breathing/ TA tightening/PF contractions. 07/30/23: Education in vulvar /genital care. STG Duration 3 wks-07/27/23 (07/30/23: MET GOAL) Half-Way Goal (LTG) Pt will be independent with a self care HEP of core (TA)/PF strengthening and hip ROM exercises. 07/09/23: HEP: TA tightening 4pt and I/S to do supine and sidelye. 07/16/23: I/S pt in self trunk rotation stretching (for DR). 08/06/23: HEP: TA/marching, TA/heel slides. 09/07/23: HEP: Hands/knees push, Sup trunk rot (R trunk rot w/knee roll L>R). 09/28/23: I/S pt in hands/ knees: knee to elbow and knee to opp elbow LTG Duration 3 more wks-10/26/23 progressing Assessment Summary Assessment Pt is ~18 wks post- of vaginal but due to bleeding, had for D& C. Tight scar on L side, but restricted in mobility with supine L knee rolls/R arm swings due to tight and weaker R TA than L ( upper and lower). DR improved , slight open below umbilicus, most opening above but less overall. PUF score decreased from 9 to 4. Pt will benefit from 4 more weeks of physical therapy for further DR closure and placement on a HEP to progress the closure over time. Her PF strength is good and urinary leakage and LBP is resolved. Physical Therapy Plan Frequency and Duration Frequency of Treatment 1x/Week Duration of treatment (weeks) 4 Plan of Care Start Date 09/28/23 Plan of Care End Date 10/26/23 Therapeutic Interventions Therapeutic Interventions Home Exercise Program,Manual Therapy,Neuromuscular Re- education,Self-Care/Home Management,Soft Tissue Mobilization,Therapeutic Exercises Next Visit Focus/Plan Next Note Type Treatment Note Next Visit Plan Discuss different pads and usage (urine vs menstrual). Discuss training to decr nighttime voiding if due to urge vs baby feeding voiding. Correct related postural changes (kyphosis/fwd head, anterior tilted pelvis) during exer. Progress onto HEP of TA strengthening for DR closure. POC: Pt education and ther ex for DR closure and postural corrections. Plan of Care Dates Plan of Care Start Date 09/28/23 Plan of Care End Date 10/26/23 Electronically Signed by: Jacy William, PT 09/28/23 1447 If you are in agreement with this Plan of Care, please return a signed and dated copy. I have reviewed this Plan of Care and certify that the skilled therapy services above are required to meet the patient?s needs. Physician Signature Date Printed Name and Credentials Clinical Instructor Signature Printed Name and Credentials
--- NOTE | 2023-10-05 12:15 | PT.OTN ---
Current Diagnoses Muscle weakness (generalized) (10/05/23) Other specified disorders of muscle (10/05/23) Pelvic and perineal pain (10/05/23) Abnormal posture (10/05/23) Physical Therapy Treatment Note PT-OP-A Visit Information Start: 06/26/23 16:51 Freq: Status: Active Protocol: Document 10/05/23 11:22 LRN (Rec: 10/05/23 12:14 LRN [id number]) Out-Patient Physical Therapy Visit Information Visit Information Visit Type Treatment Note Visit Note 1 afer PN Visit Start Time 11: Visit Stop Time 12:07 Visit Number 10 PT-OP-B Current Condition Start: 06/26/23 16:51 Freq: Status: Active Protocol: Document 06/28/23 15:01 LRN (Rec: 06/28/23 17:32 LRN [id number]) Current Condition History of Current Condition Onset Date 05/07/23 Current Complaints Diastasis Rectus, and concerned of having a weak PF. History of Current Condition Pt reports being G1,P1. Baby girl was born 05/07/23. Pt reports recently having her 6 wk post check, and is concerned she has a diastasis rectus (DR) and she has occasional low back pain with walking. She states she walks 1-2 miles daily. Her LBP was mostly during but she now has occasional pain that is the same ache as during , with walking , but not nearly as much pain. Pt reports having a vaginal with minor tearing that didn't require stitching. Currently she is not leaking, but she wants to make sure she has ex's to strengthen her PF . She has aches and pain around the scar and hasn't attempted abdominal exercises. Pt reports doing lifting exercises while and noticed a small DR. Pt reports complications post (see developmental history below) that resulted in a scar. Prior Treatments and Tests PT for LBP during that the pt felt didn't seem to help. Developmental History Developmental History Pt's was vaginal but then had vaginal D&C, then 6 hrs later had essential a C -section to stop the bleeding. Lost a lot of blood requiring 4 quarts of blood transfused. Treatment Goals Patient/Caregiver Goals Pt goals: Ex's to help close Diastasis Rectus to decrease LBP with daily walk 1-2 miles. Ex's to prevent urinary leakage. Bladder retraining to minimize frequency of urination. Prior Functional Status Baseline Function- Recreation/Hobbies Ex: Walking, Wgt lifting - bench press, lift, free wgts (3x/week) done throughout . Current Functional Impairments (Reported) Functional Limitations- Recreation/ Ex: Walking & Arm wgt lifting Hobbies . Not ex to engage abdominals . Personal Factors Other Personal Factors That May Effect Pt left the [employer] in January to Therapy/Recovery become a mom. Her spouse is in the [employer] and will be gone for 3 weeks in August of 2023 . Pt will be bringing baby to appointments. PT-OP-C Subjective Start: 06/26/23 16:51 Freq: Status: Active Protocol: Document 10/05/23 11:22 LRN (Rec: 10/05/23 12:14 LRN [id number]) OP-PT Subjective Patient Comments Patient Comments States her nighttime urination is due to baby waking (2x/ night), otherwise increased frequency is due to baby waking. No longer using pads for urinary leakage. PT-OP-I Pelvic Floor Start: 06/26/23 16:51 Freq: Status: Active Protocol: Document 09/28/23 11:19 LRN (Rec: 09/28/23 12:24 LRN [id number]) Pelvic Floor Assessment Pelvic Clock Pelvic Clock Other No tenderness around the PF clock with superficial and deep muscles. Contraction Ability Voluntary Contraction Moderate Voluntary Relaxation Moderate Manual Muscle Testing Left 3 Manual Muscle Testing Right 3 Manual Muscle Testing Anterior 3 Manual Muscle Testing Posterior 3 Muscle Endurance (Seconds) 10 Number of Quick Contractions In 10 10 Seconds PT-OP-J Posture/Palpation/Skin Start: 06/26/23 16:51 Freq: Status: Active Protocol: Document 09/28/23 11:19 LRN (Rec: 09/28/23 12:24 LRN [id number]) Palpation Assessment Location Abdomen Palpation Location Diastasis Rectus Palpation Details Above umbilicus: 1-2.5 fingerwidths (FW), 2-2 shallow FW, 3-1.5 shallow FW , 4-0.5 FW Below umbilicus: 1-1.5 very shallow FW. PT-OP-K Range of Motion Start: 06/26/23 16:51 Freq: Status: Active Protocol: Document 06/28/23 15:01 LRN (Rec: 06/28/23 17:32 LRN [id number]) Lumbar Spine Range of Motion Lumbar Spine Active Degrees Testing Position Standing Flexion 75 Extension 25 Rotation Left 20 Rotation Right 23 Lateral Flexion Left 20 Lateral Flexion Right 20 Comments Trunk AROM: Flexion is 75 deg ?s with 70 deg?s hip flexion, Trunk extension is 25 deg?s with 10 deg?s hip extension Hip Goniometric Range of Motion Hip Right Passive Testing Position Supine Internal Rotation 35 External Rotation 60 Left Passive Testing Position Supine Internal Rotation 25 External Rotation 50 PT-OP-M Strength Start: 06/26/23 16:51 Freq: Status: Active Protocol: Document 06/28/23 15:01 LRN (Rec: 06/28/23 17:32 LRN [id number]) Trunk Strength Trunk Manual Muscle Testing Core Stabilization Pt demonstrates core weakness with rotation during LE MMT. Hand Tin Assorter/Pinch Strength Hand Dominance Hand Dominance Right Hip Strength Hip Manual Muscle Testing Right Abduction 4+ Good+ Comments Strength is 5/5 except as indicated above. Left Extension (S1) 3+ Fair+ External Rotation 3 Fair Comments Strength is 5/5 except as indicated above. PT-OP-Q Treatments Start: 06/26/23 16:51 Freq: Status: Active Protocol: Document 10/05/23 11:22 LRN (Rec: 10/05/23 12:14 LRN [id number]) Therapeutic Exercises Other Exercises Prone plank for Sujit Core tightning Other Exercise Name Prone Plan Sujit core tightening without lift from wedge Equipment Used Wedge Side Plank Other Exercise Name Side Plan w/knees bent Side bilateral Equipment Used Wedge Reps/Minutes 3 breath hold Comments Phys & VCing for TA tight & to breathe. 4 pt TA ex Other Exercise Name 4 pt: Knee to elbow & knee to opp elbow Side bilateral Reps/Minutes 15x 2 Comments Extra time taken to keep TA tight and in neutral, no doming Trunk Rot Other Exercise Name Trunk Rot - drawing in of ribs and exhale on exertion Side bilateral Resistance L3 TB Reps/Minutes 15x 2 Comments Much phy & vc'ing to get ribs to draw in. Paloff Press Other Exercise Name Paloff press -indep stance & back against standing mirror Side bilateral Reps/Minutes 15x 2 Comments Cued for PPT and extra time for Drawing in of ribcage Wag the Tail Other Exercise Name Wag the Tail stretch Side bilateral Reps/Minutes 3' (10 SH x 10) Rock Backs Other Exercise Name Rock back onto heels for LB stretch Reps/Minutes 2' (10 SH x 10) Self-Care/Home Management Treatment Education Other Education Discuss different pads and usage (urine vs menstrual) Discussed training to decr nighttime voiding, but she is voiding due to baby feeding vs an urge. Discussed POC of possible DC in 1 visit if pt able to identify DR and monitor doming for more rigorous exercise, or more visits if needed, a new referral will be needed by her primary care physician. Activities Self-Care/Home Management Activities I/S pt in Side plank and Sujit prone plank on pillows. PT-OP-T Assessment and Plan Start: 06/26/23 16:51 Freq: Status: Active Protocol: Document 10/05/23 11:22 LRN (Rec: 10/05/23 12:14 LRN [id number]) Physical Therapy Assessment Goals Four Impairment PF tenderness Short Term Goal (STG) Pt will have minimal areas of tenderness to palpation of the PF. 07/09/23: PF stretching, no c /o pain. 07/30/23: HO's for vulvar/ genital care. 08/31/23: No areas of tenderness of PF STG Duration 3 wks-07/27/23 (08/31/23: MET GOAL) Group Home Goal (LTG) Improve PF strength of contraction with improved mobility. 09/28/23: PF strength is 5/5 LTG Duration 6 wks-08/10/23 (09/28/23: MET GOAL) Three Impairment PF weakness & tenderness with increased frequency of urination Short Term Goal (STG) Bladder retraining to minimize frequency of urination. 07/09/23: Bladder retraining education, HO issued. STG Duration 2 wks-07/13/23 (07/09/23: MET GOAL) Group Home Goal (LTG) Pt will be educated in PF ex's to minimize and lessen in the future urinary leakage. 08/31/23: HEP: Kegels LTG Duration 12 wks-09/28/23 (08/31/23: MET GOAL) Two Impairment Diastasis Rectus (DR) with occasional LBP Short Term Goal (STG) Strengthen core with pt able to identify her DR and when she is able to progress core strengthening based on abdominal doming. 07/09/23: Educated in DR protection with transfers using towel. 09/07/23: Progressed TA ex hands/knee push and feet on wall trunk rot. Bulging present with lateral planks. 09/28/23: Pt educated in self assessment for DR, and educated in monitoring for abdominal doming with core strengthening. 10/05/23: Reviewed self assessment of DR. STG Duration 2 more wks-10/12/22 progressed 10/05/22 Coordinator Of Online Programs Goal (LTG) Pt will be independent in a core strengthening program to minimize her DR with ability to walk 1-2 miles without LBP. 07/09/23: HEP of TA tightening 4pt and I/S to do supine and sidelye. 08/06/23: HEP: TA/marching, TA/heel slides 08/31/23: Walking 1.2-2 miles without back pain. 09/28/23: No LBP with walking 1-2 miles, core strengthening program progressing. 10/05/23: I/S pt in side plank on knees and Sujit plank for TA tightening only (no lift). LTG Duration 3 more wks-10/26/23 Partially met goal 10/05/23 ( needs core program) One Impairment Pt lacks appropriate self care HEP. Short Term Goal (STG) Education in proper methods for transfer (log roll) with coordination of breathing/TA tightening, PF contractions, and vulvar/genital care. 07/09/23: Pt educated in transfer (log roll) and sidelie<>supine, and sit<> stand coordinating breathing/ TA tightening/PF contractions. 07/30/23: Education in vulvar /genital care. STG Duration 3 wks-07/27/23 (07/30/23: MET GOAL) Coordinator Of Online Programs Goal (LTG) Pt will be independent with a self care HEP of core (TA)/PF strengthening and hip ROM exercises. 07/09/23: HEP: TA tightening 4pt and I/S to do supine and sidelye. 07/16/23: I/S pt in self trunk rotation stretching (for DR). 08/06/23: HEP: TA/marching, TA/heel slides. 09/07/23: HEP: Hands/knees push, Sup trunk rot (R trunk rot w/knee roll L>R). 09/28/23: I/S pt in hands/ knees: knee to elbow and knee to opp elbow 10/05/23: I/S pt in side plank on knees and Sujit plank for TA tightening only (no lift). LTG Duration 3 more wks-10/26/23 progressing 10/05/23 Assessment Summary Assessment Pt is ~5 month post- of vaginal , but due to bleeding, had for D& C. Getting her to strengthen her deep trunk rotators took a lot of time with phys & VCs needed. Improving in tolerance to ex with abdomen. Able to maintain core with sujit plank on wedge for 3 secs before bulging occurs. Physical Therapy Plan Frequency and Duration Frequency of Treatment 1x/Week Duration of treatment (weeks) 4 Plan of Care Start Date 09/28/23 Plan of Care End Date 10/26/23 Next Visit Focus/Plan Next Note Type Treatment Note Next Visit Plan Correct related postural changes (kyphosis/fwd head, anterior tilted pelvis) during exer. Progress onto HEP of TA strengthening for DR closure. POC: Pt education and ther ex for DR closure and postural corrections.
--- NOTE | 2023-10-12 13:56 | PT.OTN ---
Current Diagnoses Muscle weakness (generalized) (10/12/23) Other specified disorders of muscle (10/12/23) Pelvic and perineal pain (10/12/23) Abnormal posture (10/12/23) Physical Therapy Treatment Note PT-OP-A Visit Information Start: 06/26/23 16:51 Freq: Status: Active Protocol: Document 10/12/23 13:02 LRN (Rec: 10/12/23 13:50 LRN [id number]) Out-Patient Physical Therapy Visit Information Visit Information Visit Type Treatment Note Visit Note 2 afer PN Visit Start Time 13:02 Visit Stop Time 13:40 Visit Number 11 Evaluation Information Evaluation Date 06/28/23 Precautions Precautions MD I/S pt to start with body wt squats and slowly build up to lifting. Wgt is 195# PT-OP-B Current Condition Start: 06/26/23 16:51 Freq: Status: Active Protocol: Document 06/28/23 15:01 LRN (Rec: 06/28/23 17:32 LRN [id number]) Current Condition History of Current Condition Onset Date 05/07/23 Current Complaints Diastasis Rectus, and concerned of having a weak PF. History of Current Condition Pt reports being G1,P1. Baby girl was born 05/07/23. Pt reports recently having her 6 wk post check, and is concerned she has a diastasis rectus (DR) and she has occasional low back pain with walking. She states she walks 1-2 miles daily. Her LBP was mostly during but she now has occasional pain that is the same ache as during , with walking , but not nearly as much pain. Pt reports having a vaginal with minor tearing that didn't require stitching. Currently she is not leaking, but she wants to make sure she has ex's to strengthen her PF . She has aches and pain around the scar and hasn't attempted abdominal exercises. Pt reports doing lifting exercises while and noticed a small DR. Pt reports complications post (see developmental history below) that resulted in a scar. Prior Treatments and Tests PT for LBP during that the pt felt didn't seem to help. Developmental History Developmental History Pt's was vaginal but then had vaginal D&C, then 6 hrs later had essential a C -section to stop the bleeding. Lost a lot of blood requiring 4 quarts of blood transfused. Treatment Goals Patient/Caregiver Goals Pt goals: Ex's to help close Diastasis Rectus to decrease LBP with daily walk 1-2 miles. Ex's to prevent urinary leakage. Bladder retraining to minimize frequency of urination. Prior Functional Status Baseline Function- Recreation/Hobbies Ex: Walking, Wgt lifting - bench press, lift, free wgts (3x/week) done throughout . Current Functional Impairments (Reported) Functional Limitations- Recreation/ Ex: Walking & Arm wgt lifting Hobbies . Not ex to engage abdominals . Personal Factors Other Personal Factors That May Effect Pt left the [employer] in January to Therapy/Recovery become a mom. Her spouse is in the [employer] and will be gone for 3 weeks in August of 2023 . Pt will be bringing baby to appointments. PT-OP-C Subjective Start: 06/26/23 16:51 Freq: Status: Active Protocol: Document 10/12/23 13:02 LRN (Rec: 10/12/23 13:50 LRN [id number]) OP-PT Subjective Patient Comments Patient Comments Doing home exercises. PT-OP-I Pelvic Floor Start: 06/26/23 16:51 Freq: Status: Active Protocol: Document 10/12/23 13:02 LRN (Rec: 10/12/23 13:50 LRN [id number]) Pelvic Floor Assessment SEMG (uV) Baseline 0.7 Quick Contraction 18.5 Recruitment Pattern Fair Relaxation Good Holding Good Stability of Hold Good SEMG Stability of Rest Fair Comments Pelvic Floor Comments Quick Flicks: 10 reps strength (uV's): avg work 18.5, avg rest 13.8. 20 reps strength (uV's): avg work 18.8, avg rest 14.3. Long Holds: 10 reps strength (uV's): avg work , avg rest . 20 reps strength (uV's): avg work , avg rest . PT-OP-J Posture/Palpation/Skin Start: 06/26/23 16:51 Freq: Status: Active Protocol: Document 09/28/23 11:19 LRN (Rec: 09/28/23 12:24 LRN [id number]) Palpation Assessment Location Abdomen Palpation Location Diastasis Rectus Palpation Details Above umbilicus: 1-2.5 fingerwidths (FW), 2-2 shallow FW, 3-1.5 shallow FW , 4-0.5 FW Below umbilicus: 1-1.5 very shallow FW. PT-OP-K Range of Motion Start: 06/26/23 16:51 Freq: Status: Active Protocol: Document 06/28/23 15:01 LRN (Rec: 06/28/23 17:32 LRN [id number]) Lumbar Spine Range of Motion Lumbar Spine Active Degrees Testing Position Standing Flexion 75 Extension 25 Rotation Left 20 Rotation Right 23 Lateral Flexion Left 20 Lateral Flexion Right 20 Comments Trunk AROM: Flexion is 75 deg ?s with 70 deg?s hip flexion, Trunk extension is 25 deg?s with 10 deg?s hip extension Hip Goniometric Range of Motion Hip Right Passive Testing Position Supine Internal Rotation 35 External Rotation 60 Left Passive Testing Position Supine Internal Rotation 25 External Rotation 50 PT-OP-M Strength Start: 06/26/23 16:51 Freq: Status: Active Protocol: Document 06/28/23 15:01 LRN (Rec: 06/28/23 17:32 LRN [id number]) Trunk Strength Trunk Manual Muscle Testing Core Stabilization Pt demonstrates core weakness with rotation during LE MMT. Hand Elementary Tutor/Pinch Strength Hand Dominance Hand Dominance Right Hip Strength Hip Manual Muscle Testing Right Abduction 4+ Good+ Comments Strength is 5/5 except as indicated above. Left Extension (S1) 3+ Fair+ External Rotation 3 Fair Comments Strength is 5/5 except as indicated above. PT-OP-Q Treatments Start: 06/26/23 16:51 Freq: Status: Active Protocol: Document 10/12/23 13:02 LRN (Rec: 10/12/23 13:50 LRN [id number]) Therapeutic Exercises Supine Exercises Vemg PF contractions Supine Exercise Name Vemg PF contractions - Resting , Quick and 10SH contractions. Reps/Minutes 20' Comments Cuing to not hold breath and to isolate PF contractions. Rest periods btn Other Exercises 4 pt bicycle Other Exercise Name 4 pt bicycle Reps/Minutes 4' Comments Extra time for positioning and determing TA bulge Sujit Plank Other Exercise Name Sujit Plank Reps/Minutes 4' Comments Extra time for positioning and determing TA bulge Prone plank for Sujit Core tightning Other Exercise Name Prone Plan Sujit core tightening without lift from wedge Equipment Used Wedge Comments Prone over wedge Neuro Re-Education Treatment Coordination Activities Vemg Details PF Quick & Long hold contractions to eliminate spike during rest phase Reps/Duration 10' Comments Training via biofeedback use of PF contraction strength. PT-OP-T Assessment and Plan Start: 06/26/23 16:51 Freq: Status: Active Protocol: Document 10/12/23 13:02 LRN (Rec: 10/12/23 13:50 LRN [id number]) Physical Therapy Assessment Assessment Summary Assessment ............ Pt is ~5 month post- of vaginal , due to bleeding, had for D&C. She shows good low resting tone, her quick contractions may indicate she is breath holding and using substitute ms to get contraction, causing a spike in strength when letting go of either breath, abdominals or both. Pt is able to come to resting in 2-3 secs during long holds. Pt is not yet ready for prone core isometrics due to doming of abdomen. Physical Therapy Plan Frequency and Duration Frequency of Treatment 1x/Week Duration of treatment (weeks) 4 Plan of Care Start Date 09/28/23 Plan of Care End Date 10/26/23 Next Visit Focus/Plan Next Note Type Treatment Note Next Visit Plan Assess for doming with exercises and recheck Plan DC next visit. Ex to correct related postural changes (kyphosis/fwd head, anterior tilted pelvis) during exer. POC: Pt education and ther ex for DR closure and postural corrections.
--- NOTE | 2023-10-12 13:57 | PT.OTN ---
Current Diagnoses Muscle weakness (generalized) (10/12/23) Other specified disorders of muscle (10/12/23) Pelvic and perineal pain (10/12/23) Abnormal posture (10/12/23) Physical Therapy Treatment Note PT-OP-A Visit Information Start: 06/26/23 16:51 Freq: Status: Active Protocol: Document 10/12/23 13:02 LRN (Rec: 10/12/23 13:50 LRN [id number]) Out-Patient Physical Therapy Visit Information Visit Information Visit Type Treatment Note Visit Note 2 afer PN Visit Start Time 13:02 Visit Stop Time 13:40 Visit Number 11 Evaluation Information Evaluation Date 06/28/23 Precautions Precautions MD I/S pt to start with body wt squats and slowly build up to lifting. Wgt is 195# PT-OP-B Current Condition Start: 06/26/23 16:51 Freq: Status: Active Protocol: Document 06/28/23 15:01 LRN (Rec: 06/28/23 17:32 LRN [id number]) Current Condition History of Current Condition Onset Date 05/07/23 Current Complaints Diastasis Rectus, and concerned of having a weak PF. History of Current Condition Pt reports being G1,P1. Baby girl was born 05/07/23. Pt reports recently having her 6 wk post check, and is concerned she has a diastasis rectus (DR) and she has occasional low back pain with walking. She states she walks 1-2 miles daily. Her LBP was mostly during but she now has occasional pain that is the same ache as during , with walking , but not nearly as much pain. Pt reports having a vaginal with minor tearing that didn't require stitching. Currently she is not leaking, but she wants to make sure she has ex's to strengthen her PF . She has aches and pain around the scar and hasn't attempted abdominal exercises. Pt reports doing lifting exercises while and noticed a small DR. Pt reports complications post (see developmental history below) that resulted in a scar. Prior Treatments and Tests PT for LBP during that the pt felt didn't seem to help. Developmental History Developmental History Pt's was vaginal but then had vaginal D&C, then 6 hrs later had essential a C -section to stop the bleeding. Lost a lot of blood requiring 4 quarts of blood transfused. Treatment Goals Patient/Caregiver Goals Pt goals: Ex's to help close Diastasis Rectus to decrease LBP with daily walk 1-2 miles. Ex's to prevent urinary leakage. Bladder retraining to minimize frequency of urination. Prior Functional Status Baseline Function- Recreation/Hobbies Ex: Walking, Wgt lifting - bench press, lift, free wgts (3x/week) done throughout . Current Functional Impairments (Reported) Functional Limitations- Recreation/ Ex: Walking & Arm wgt lifting Hobbies . Not ex to engage abdominals . Personal Factors Other Personal Factors That May Effect Pt left the [employer] in January to Therapy/Recovery become a mom. Her spouse is in the [employer] and will be gone for 3 weeks in August of 2023 . Pt will be bringing baby to appointments. PT-OP-C Subjective Start: 06/26/23 16:51 Freq: Status: Active Protocol: Document 10/12/23 13:02 LRN (Rec: 10/12/23 13:50 LRN [id number]) OP-PT Subjective Patient Comments Patient Comments Doing home exercises. PT-OP-I Pelvic Floor Start: 06/26/23 16:51 Freq: Status: Active Protocol: Document 10/12/23 13:02 LRN (Rec: 10/12/23 13:50 LRN [id number]) Pelvic Floor Assessment SEMG (uV) Baseline 0.7 Quick Contraction 18.5 Recruitment Pattern Fair Relaxation Good Holding Good Stability of Hold Good SEMG Stability of Rest Fair Comments Pelvic Floor Comments Quick Flicks: 10 reps strength (uV's): avg work 18.5, avg rest 13.8. 20 reps strength (uV's): avg work 18.8, avg rest 14.3. Long Holds: 10 reps strength (uV's): avg work , avg rest . 20 reps strength (uV's): avg work , avg rest . PT-OP-J Posture/Palpation/Skin Start: 06/26/23 16:51 Freq: Status: Active Protocol: Document 09/28/23 11:19 LRN (Rec: 09/28/23 12:24 LRN [id number]) Palpation Assessment Location Abdomen Palpation Location Diastasis Rectus Palpation Details Above umbilicus: 1-2.5 fingerwidths (FW), 2-2 shallow FW, 3-1.5 shallow FW , 4-0.5 FW Below umbilicus: 1-1.5 very shallow FW. PT-OP-K Range of Motion Start: 06/26/23 16:51 Freq: Status: Active Protocol: Document 06/28/23 15:01 LRN (Rec: 06/28/23 17:32 LRN [id number]) Lumbar Spine Range of Motion Lumbar Spine Active Degrees Testing Position Standing Flexion 75 Extension 25 Rotation Left 20 Rotation Right 23 Lateral Flexion Left 20 Lateral Flexion Right 20 Comments Trunk AROM: Flexion is 75 deg ?s with 70 deg?s hip flexion, Trunk extension is 25 deg?s with 10 deg?s hip extension Hip Goniometric Range of Motion Hip Right Passive Testing Position Supine Internal Rotation 35 External Rotation 60 Left Passive Testing Position Supine Internal Rotation 25 External Rotation 50 PT-OP-M Strength Start: 06/26/23 16:51 Freq: Status: Active Protocol: Document 06/28/23 15:01 LRN (Rec: 06/28/23 17:32 LRN [id number]) Trunk Strength Trunk Manual Muscle Testing Core Stabilization Pt demonstrates core weakness with rotation during LE MMT. Hand Upholstery Restorer/Pinch Strength Hand Dominance Hand Dominance Right Hip Strength Hip Manual Muscle Testing Right Abduction 4+ Good+ Comments Strength is 5/5 except as indicated above. Left Extension (S1) 3+ Fair+ External Rotation 3 Fair Comments Strength is 5/5 except as indicated above. PT-OP-Q Treatments Start: 06/26/23 16:51 Freq: Status: Active Protocol: Document 10/12/23 13:02 LRN (Rec: 10/12/23 13:50 LRN [id number]) Therapeutic Exercises Supine Exercises Vemg PF contractions Supine Exercise Name Vemg PF contractions - Resting , Quick and 10SH contractions. Reps/Minutes 20' Comments Cuing to not hold breath and to isolate PF contractions. Rest periods btn Other Exercises 4 pt bicycle Other Exercise Name 4 pt bicycle Reps/Minutes 4' Comments Extra time for positioning and determing TA bulge Sujit Plank Other Exercise Name Sujit Plank Reps/Minutes 4' Comments Extra time for positioning and determing TA bulge Prone plank for Sujit Core tightning Other Exercise Name Prone Plan Sujit core tightening without lift from wedge Equipment Used Wedge Comments Prone over wedge Neuro Re-Education Treatment Coordination Activities Vemg Details PF Quick & Long hold contractions to eliminate spike during rest phase Reps/Duration 10' Comments Training via biofeedback use of PF contraction strength. PT-OP-T Assessment and Plan Start: 06/26/23 16:51 Freq: Status: Active Protocol: Document 10/12/23 13:02 LRN (Rec: 10/12/23 13:50 LRN [id number]) Physical Therapy Assessment Assessment Summary Assessment Pt is ~5 month post- of vaginal , due to bleeding , had for D&C. She shows good low resting tone, her quick contractions may indicate she is breath holding and using substitute ms to get contraction, causing a spike in strength when letting go of either breath, abdominals or both. Pt is able to come to resting in 2-3 secs during long holds. Pt is not yet ready for prone core isometrics due to doming of abdomen. Physical Therapy Plan Frequency and Duration Frequency of Treatment 1x/Week Duration of treatment (weeks) 4 Plan of Care Start Date 09/28/23 Plan of Care End Date 10/26/23 Next Visit Focus/Plan Next Note Type Treatment Note Next Visit Plan Assess for doming with exercises and recheck DR. Matthews DC next visit. Ex to correct related postural changes (kyphosis/fwd head, anterior tilted pelvis) during exer. POC: Pt education and ther ex for DR antonio and postural corrections.
--- NOTE | 2023-10-18 15:25 | PT.OTN ---
Current Diagnoses Muscle weakness (generalized) (10/18/23) Other specified disorders of muscle (10/18/23) Pelvic and perineal pain (10/18/23) Abnormal posture (10/18/23) Physical Therapy Treatment Note PT-OP-A Visit Information Start: 06/26/23 16:51 Freq: Status: Active Protocol: Document 10/18/23 14:33 LRN (Rec: 10/18/23 14:43 LRN [id number]) Out-Patient Physical Therapy Visit Information Visit Information Visit Type Treatment Note Visit Note 3 afer PN Visit Start Time 14:33 Visit Stop Time 15:13 Visit Number 12 Evaluation Information Evaluation Date 06/28/23 Precautions Precautions MD I/S pt to start with body wt squats and slowly build up to lifting. Wgt is 195# PT-OP-B Current Condition Start: 06/26/23 16:51 Freq: Status: Active Protocol: Document 06/28/23 15:01 LRN (Rec: 06/28/23 17:32 LRN [id number]) Current Condition History of Current Condition Onset Date 05/07/23 Current Complaints Diastasis Rectus, and concerned of having a weak PF. History of Current Condition Pt reports being G1,P1. Baby girl was born 05/07/23. Pt reports recently having her 6 wk post check, and is concerned she has a diastasis rectus (DR) and she has occasional low back pain with walking. She states she walks 1-2 miles daily. Her LBP was mostly during but she now has occasional pain that is the same ache as during , with walking , but not nearly as much pain. Pt reports having a vaginal with minor tearing that didn't require stitching. Currently she is not leaking, but she wants to make sure she has ex's to strengthen her PF . She has aches and pain around the scar and hasn't attempted abdominal exercises. Pt reports doing lifting exercises while and noticed a small DR. Pt reports complications post (see developmental history below) that resulted in a scar. Prior Treatments and Tests PT for LBP during that the pt felt didn't seem to help. Developmental History Developmental History Pt's was vaginal but then had vaginal D&C, then 6 hrs later had essential a C -section to stop the bleeding. Lost a lot of blood requiring 4 quarts of blood transfused. Treatment Goals Patient/Caregiver Goals Pt goals: Ex's to help close Diastasis Rectus to decrease LBP with daily walk 1-2 miles. Ex's to prevent urinary leakage. Bladder retraining to minimize frequency of urination. Prior Functional Status Baseline Function- Recreation/Hobbies Ex: Walking, Wgt lifting - bench press, lift, free wgts (3x/week) done throughout . Current Functional Impairments (Reported) Functional Limitations- Recreation/ Ex: Walking & Arm wgt lifting Hobbies . Not ex to engage abdominals . Personal Factors Other Personal Factors That May Effect Pt left the [employer] in January to Therapy/Recovery become a mom. Her spouse is in the [employer] and will be gone for 3 weeks in August of 2023 . Pt will be bringing baby to appointments. PT-OP-C Subjective Start: 06/26/23 16:51 Freq: Status: Active Protocol: Document 10/18/23 14:33 LRN (Rec: 10/18/23 14:43 LRN [id number]) OP-PT Subjective Patient Comments Patient Comments Things going well, doing ex's. Side planks are hardest, and feels getting easier. Ready for DC to HEP. PT-OP-I Pelvic Floor Start: 06/26/23 16:51 Freq: Status: Active Protocol: Document 10/12/23 13:02 LRN (Rec: 10/12/23 13:50 LRN [id number]) Pelvic Floor Assessment SEMG (uV) Baseline 0.7 Quick Contraction 18.5 Recruitment Pattern Fair Relaxation Good Holding Good Stability of Hold Good SEMG Stability of Rest Fair Comments Pelvic Floor Comments Quick Flicks: 10 reps strength (uV's): avg work 18.5, avg rest 13.8. 20 reps strength (uV's): avg work 18.8, avg rest 14.3. Long Holds: 10 reps strength (uV's): avg work , avg rest . 20 reps strength (uV's): avg work , avg rest . PT-OP-J Posture/Palpation/Skin Start: 06/26/23 16:51 Freq: Status: Active Protocol: Document 10/18/23 14:33 LRN (Rec: 10/18/23 14:45 LRN [id number]) Palpation Assessment Location Abdomen Palpation Location DR Palpation Details Above umbilicus: 1-1.5 fingerwidths (FW), 2-1.5 shallow FW, 3-1.0 shallow FW , 4-Closed Below umbilicus: 1-1.0 very shallow FW. PT-OP-K Range of Motion Start: 06/26/23 16:51 Freq: Status: Active Protocol: Document 06/28/23 15:01 LRN (Rec: 06/28/23 17:32 LRN [id number]) Lumbar Spine Range of Motion Lumbar Spine Active Degrees Testing Position Standing Flexion 75 Extension 25 Rotation Left 20 Rotation Right 23 Lateral Flexion Left 20 Lateral Flexion Right 20 Comments Trunk AROM: Flexion is 75 deg ?s with 70 deg?s hip flexion, Trunk extension is 25 deg?s with 10 deg?s hip extension Hip Goniometric Range of Motion Hip Right Passive Testing Position Supine Internal Rotation 35 External Rotation 60 Left Passive Testing Position Supine Internal Rotation 25 External Rotation 50 PT-OP-M Strength Start: 06/26/23 16:51 Freq: Status: Active Protocol: Document 06/28/23 15:01 LRN (Rec: 06/28/23 17:32 LRN [id number]) Trunk Strength Trunk Manual Muscle Testing Core Stabilization Pt demonstrates core weakness with rotation during LE MMT. Hand Extras Casting Director/Pinch Strength Hand Dominance Hand Dominance Right Hip Strength Hip Manual Muscle Testing Right Abduction 4+ Good+ Comments Strength is 5/5 except as indicated above. Left Extension (S1) 3+ Fair+ External Rotation 3 Fair Comments Strength is 5/5 except as indicated above. PT-OP-Q Treatments Start: 06/26/23 16:51 Freq: Status: Active Protocol: Document 10/18/23 14:33 LRN (Rec: 10/18/23 14:43 N [id number]) Therapeutic Exercises Supine Exercises Rotation hands/knees push Supine Exercise Name [place] hand/knee push Side bilateral Reps/Minutes 10 SH x 10 Comments Cuing for hand placement, trying ball w/both legs push, choosing 1 hand push TA hands/knees push Supine Exercise Name TA hands/knees push in 90/90 positioning Reps/Minutes 3' Standing Exercises Iliopsoas stretch Standing Exercise Name Ilipsoas stretch Side bilateral Reps/Minutes 30 SH x 2 Comments Cued for toes forward and posterior pelvic tilt. Other Exercises 4 pt bicycle Other Exercise Name 4 pt bicycle Reps/Minutes 4' Comments Extra time for positioning and determing TA bulge 4 pt TA ex Other Exercise Name 4 pt: Knee to elbow & knee to opp elbow Side bilateral Reps/Minutes 15x 2 Comments Extra time taken to keep TA tight and in neutral, no doming Trunk Rot Other Exercise Name Standing Trunk Rot - drawing in of ribs and exhale on exertion Side bilateral Resistance L3 TB Reps/Minutes 15x 2 Comments Much phy & vc'ing to get ribs to draw in. Paloff Press Other Exercise Name Paloff press -indep stance & back against standing mirror Side bilateral Equipment Used Lev 3 TBand Reps/Minutes 15x 2 Comments Cued for PPT and extra time for Drawing in of ribcage Self-Care/Home Management Treatment Education Patient Education Home Exercise Program Activities Self-Care/Home Management Activities Issued & reviewed HEP: Standing Ilipsoas stretch, Roll for control legs off wall , Hands/knees push both arms and opp arm leg. PT-OP-T Assessment and Plan Start: 06/26/23 16:51 Freq: Status: Active Protocol: Document 10/18/23 14:33 LRN (Rec: 10/18/23 14:43 LRN [id number]) Physical Therapy Assessment Goals Four Impairment PF tenderness Short Term Goal (STG) Pt will have minimal areas of tenderness to palpation of the PF. 07/09/23: PF stretching, no c /o pain. 07/30/23: HO's for vulvar/ genital care. 08/31/23: No areas of tenderness of PF STG Duration 3 wks-07/27/23 (08/31/23: MET GOAL) Trial Justice Goal (LTG) Improve PF strength of contraction with improved mobility. 09/28/23: PF strength is 5/5 LTG Duration 6 wks-08/10/23 (09/28/23: MET GOAL) Three Impairment PF weakness & tenderness with increased frequency of urination Short Term Goal (STG) Bladder retraining to minimize frequency of urination. 07/09/23: Bladder retraining education, HO issued. STG Duration 2 wks-07/13/23 (07/09/23: MET GOAL) Trial Justice Goal (LTG) Pt will be educated in PF ex's to minimize and lessen in the future urinary leakage. 08/31/23: HEP: Kegels LTG Duration 12 wks-09/28/23 (08/31/23: MET GOAL) Two Impairment Diastasis Rectus (DR) with occasional LBP Short Term Goal (STG) Strengthen core with pt able to identify her DR and when she is able to progress core strengthening based on abdominal doming. 07/09/23: Educated in DR protection with transfers using towel. 09/07/23: Progressed TA ex hands/knee push and feet on wall trunk rot. Bulging present with lateral planks. 09/28/23: Pt educated in self assessment for DR, and educated in monitoring for abdominal doming with core strengthening. 10/05/23: Reviewed self assessment of DR. 10/18/23: Pt able to identify fairly well DR presence. STG Duration 2 more wks-10/12/22 (10/18/22 : MET GOAL) Usp Goal (LTG) Pt will be independent in a core strengthening program to minimize her DR with ability to walk 1-2 miles without LBP. 07/09/23: HEP of TA tightening 4pt and I/S to do supine and sidelye. 08/06/23: HEP: TA/marching, TA/heel slides 08/31/23: Walking 1.2-2 miles without back pain. 09/28/23: No LBP with walking 1-2 miles, core strengthening program progressing. 10/05/23: I/S pt in side plank on knees and Sujit plank for TA tightening only (no lift). 10/18/23: Walking 1.4-1.5 and sometimes 2 miles (30-45') daily unless raining. HEP: Roll for control legs off wall , Hands/knees push both arms and opp arm leg. LTG Duration 3 more wks-10/26/23 (: MET GOAL) One Impairment Pt lacks appropriate self care HEP. Short Term Goal (STG) Education in proper methods for transfer (log roll) with coordination of breathing/TA tightening, PF contractions, and vulvar/genital care. 07/09/23: Pt educated in transfer (log roll) and sidelie<>supine, and sit<> stand coordinating breathing/ TA tightening/PF contractions. 07/30/23: Education in vulvar /genital care. STG Duration 3 wks-07/27/23 (07/30/23: MET GOAL) Trial Justice Goal (LTG) Pt will be independent with a self care HEP of core (TA)/PF strengthening and hip ROM exercises. 07/09/23: HEP: TA tightening 4pt and I/S to do supine and sidelye. 07/16/23: I/S pt in self trunk rotation stretching (for DR). 08/06/23: HEP: TA/marching, TA/heel slides. 09/07/23: HEP: Hands/knees push, Sup trunk rot (R trunk rot w/knee roll L>R). 09/28/23: I/S pt in hands/ knees: knee to elbow and knee to opp elbow 10/05/23: I/S pt in side plank on knees and Sujit plank for TA tightening only (no lift). 10/18/23: HEP: Standing Ilipsoas stretch, Roll for control legs off wall, Hands/ knees push both arms and opp arm leg. LTG Duration 3 more wks-10/26/23 (: MET GOAL) Assessment Summary Assessment Pt is 5+ month post- of vaginal , due to bleeding , had for D&C. She has improved her core strength and awareness of when she is not able to maintain core stability, protecting her Diastasis Rectus () and has a HEP to progress her core strength. She has no reports of tenderness of her PF and has HEP of PF exercise for relaxation and strengthening to lesson chances of onset of urinary leakage in the future. The pt is ready for discharge to her self care HEP . Physical Therapy Plan Discharge Physical Therapy Discharge Reasons Goals Met Discharge Comments Thank you for your referral.
== END 2023-10-23 10:09 | disposition home or self-care (01) ==
LOC: PHYS 14:30
PROVIDERS: Family Provider Nurse Practitioner Family; PCP Nurse Practitioner Family; Referring Provider Family Medicine; Visit Provider Family Medicine
DX: M62.89 Other specified disorders of muscle (principal); M62.81 Muscle weakness (generalized); R29.3 Abnormal posture; R10.2 Pelvic and perineal pain
CPT/HCPCS: 97110; 97112; 97140; 97162